=== PATIENT | male | born 1960 | race Caucasian/White ===

== ENCOUNTER 2017-03-15 20:58 | Inpatient (IN) | payer SELFPAY ==
[~2017-03-15] VITALS: Ht 172.7 cm; Wt 63.4 kg
[~2017-03-15 20:58] MED LIST: CILO0.3S EACH EYE; METO25 PO; TRAZ100T4 PO
[2017-03-15 21:04] VITALS: BP 124/87; PULSE 101; RESP 18; TEMP 98; O2SAT 98
--- NOTE | 2017-03-15 22:30 | PD ---
HPI Chief Complaint: GI Complaint Time Seen by Provider: 22:20 Travel History International Travel<30 days: No Contact w/Intl Traveler<30days: No Traveled to known affect area: No History of Present Illness HPI The patient is a 56-year-old homeless alcoholic who states he has been vomiting and has the shakes for 3 days. He discontinued alcohol 3 days ago. [place] [facility], [facility] Past Medical History Arthritis: No Asthma: Yes Blood Disorders: No Anxiety: Yes Depression: Yes Heart Rhythm Problems: No Cancer: No Cardiovascular Problems: Yes High Cholesterol: No Chemotherapy: No Chest Pain: Yes Congestive Heart Failure: No COPD: Yes Cerebrovascular Accident: No Diabetes: No Diminished Hearing: No Endocrine: No Gastrointestinal Disorders: Yes GERD: Yes Genitourinary: No Headaches: No Hepatitis: No Hiatal Hernia: No Hypertension: Yes Immune Disorder: No Musculoskeletal: Yes Neurologic: Yes Psychiatric: Yes Reproductive: No Respiratory: Yes Immunizations Current: No Migraines: No Myocardial Infarction: No Pancreatitis: Yes Radiation Therapy: No Seizures: No Sleep Apnea: No Thyroid Disease: No Ulcer: No Tetanus Vaccination: > 5 Years Influenza Vaccination: No ?: Not Past Surgical History Abdominal Surgery: No Appendectomy: No Cardiac Surgery: No Cholecystectomy: No Ear Surgery: No Endocrine Surgery: No Eye Surgery: Yes (rt eye laser [id number]) Genitourinary Surgery: No Gynecologic Surgery: No Oral Surgery: Yes (top implanted front dentures) Thoracic Surgery: No Other Surgery: Yes Social History Alcohol Use: Yes Tobacco Use: Yes (1 PPD) Substance Use: No Allergies-Medications (Allergen,Severity, Reaction): Coded Allergies: No Known Allergies (Verified , 03/15/17) Reported Meds & Prescriptions Reported Meds & Active Scripts Active Review of Systems Except as stated in HPI: all other systems reviewed are Neg Physical Exam Narrative GENERAL: The patient is alert, oriented 3 with a minimal tremor and slight dehydration and minimal apparent distress with his midline epigastric discomfort. His vital signs show heart rate of 101 but are otherwise normal. SKIN: Focused skin assessment warm/dry. HEAD: Atraumatic. Normocephalic. EYES: Pupils equal and round. No scleral icterus. No injection or drainage. ENT: No nasal bleeding or discharge. Mucous membranes pink and moist. NECK: Trachea midline. No JVD. CARDIOVASCULAR: Regular rate and rhythm. No murmur appreciated. RESPIRATORY: No accessory muscle use. Clear to auscultation. Breath sounds equal bilaterally. GASTROINTESTINAL: Abdomen soft, with tenderness to direct palpation in the midline epigastrium, no guarding or rebound is present. The abdomen is nondistended. Hepatic and splenic margins not palpable. MUSCULOSKELETAL: No obvious deformities. No clubbing. No cyanosis. No edema. NEUROLOGICAL: Awake and alert. No obvious cranial nerve deficits. Motor grossly within normal limits. Normal speech. PSYCHIATRIC: Appropriate mood and affect; insight and judgment normal. Data Data Last Documented VS Vital Signs Date Time Temp Pulse Resp B/P (MAP) Pulse Ox O2 Delivery O2 Flow Rate FiO2 03/15/17 22:37 98 Room Air 03/15/17 21:04 98.0 101 18 124/87 (99) Orders Orders Complete Blood Count With Diff (03/15/17 22:31) Comprehensive Metabolic Panel (03/15/17 22:31) Lipase (03/15/17 22:31) Iv Access Insert/Monitor (03/15/17 22:31) Ecg Monitoring (03/15/17 22:31) Oximetry (03/15/17 22:31) Sodium Chloride 0.9% Flush (Ns Flush) (03/15/17 22:45) Ondansetron Inj (Zofran Inj) (03/15/17 22:45) Sodium Chlor 0.9% 1000 Ml Inj (Ns 1000 M (03/15/17 22:45) Potassium Chloride (Kcl) (03/15/17 23:15) Thiamine Inj (Thiamine Inj) (03/15/17 23:30) Labs Laboratory Tests Test 03/15/17 22:34 White Blood Count 8.9 TH/MM3 Red Blood Count 5.04 MIL/MM3 Hemoglobin 13.2 GM/DL Hematocrit 39.7 % Mean Corpuscular Volume 78.8 FL Mean Corpuscular Hemoglobin 26.2 PG Mean Corpuscular Hemoglobin Concent 33.3 % Red Cell Distribution Width 21.0 % Platelet Count 79 TH/MM3 Mean Platelet Volume 9.5 FL Neutrophils (%) (Auto) 81.9 % Lymphocytes (%) (Auto) 8.9 % Monocytes (%) (Auto) 8.5 % Eosinophils (%) (Auto) 0.4 % Basophils (%) (Auto) 0.3 % Neutrophils # (Auto) 7.3 TH/MM3 Lymphocytes # (Auto) 0.8 TH/MM3 Monocytes # (Auto) 0.8 TH/MM3 Eosinophils # (Auto) 0.0 TH/MM3 Basophils # (Auto) 0.0 TH/MM3 CBC Comment DIFF FINAL Differential Comment Blood Urea Nitrogen 20 MG/DL Creatinine 1.30 MG/DL Random Glucose 106 MG/DL Total Protein 8.7 GM/DL Albumin 4.3 GM/DL Calcium Level 9.7 MG/DL Alkaline Phosphatase 82 U/L Aspartate Amino Transf (AST/SGOT) 115 U/L Alanine Aminotransferase (ALT/SGPT) 62 U/L Total Bilirubin 1.9 MG/DL Sodium Level 130 MEQ/L Potassium Level 2.5 MEQ/L Chloride Level 84 MEQ/L Carbon Dioxide Level 32.8 MEQ/L Anion Gap 13 MEQ/L Estimat Glomerular Filtration Rate 57 ML/MIN Lipase 582 U/L [facility] Medical Decision Making Medical Screen Exam Complete: Yes Emergency Medical Condition: Yes Medical Record Reviewed: Yes Interpretation(s) The CBC is normal except for an MCV of 79 and MCH of 26 and a platelet count of 79,000. The complete metabolic profile shows a BUN of 20, GFR 57, total protein of 8.7, AST of 115 and total bilirubin of 1.9 with a sodium of 1:30 and potassium 2.5 and bicarbonate of 32.8. The lipase is elevated at 582. Differential Diagnosis Alcohol gastritis, pancreatitis, dehydration, electrolyte disorder, anemia, renal insufficiency, alcohol hepatitis-unlikely Narrative Course The patient likely has alcoholic pancreatitis. He is dehydrated and has not been able to give us a urine yet. The elevated BUN suggest dehydration. He also has an electrolyte disorder with a sodium of 1:30 and potassium of 2.5. Plan: The patient will be admitted to Dr. Gigi otto of the [facility] service. The patient will be admitted for alcohol withdrawal, hypokalemia and alcoholic pancreatitis Diagnosis Primary Impression: Alcohol withdrawal Additional Impressions: Hypovolemia associated with vomiting Alcoholic pancreatitis Dehydration, moderate Admitting Information Admitting Physician Requests: Admit Alvarez Reed MD Mar 15, 2017 22:30
[2017-03-15] MEDS: SODIUM CHLOR 0.9% 1000 ML INJ 1,000 ML IV SCH ×2 (22:36→22:37)
[2017-03-15 22:37] VITALS: O2SAT 98
[2017-03-15] MEDS ORDERED: ONDANSETRON HCL 4 MG/2 ML VIAL IV ONE (22:45)
[2017-03-15] MEDS ORDERED: SODIUM CHLORIDE 0.9% FLUSH 10 ML FLUSH IV FLUSH PRN ×2 (22:45→23:30)
[2017-03-15 22:46] LABS: AUTOMATED NEUTROPHIL # 7.3 TH/MM3 (1.8-7.7); BASOPHIL % 0.3 % (0.0-2.0); EOSINOPHIL % 0.4 % (0.0-4.0); HEMATOCRIT 39.7 % (39.0-51.0); LYMPH % 8.9 % (9.0-44.0); LYMPHOCYTE # 0.8 TH/MM3 (1.0-4.8); MEAN CELL VOLUME 78.8 FL (80.0-100.0); MEAN CORPUSCULAR HEMOGLOBIN 26.2 PG (27.0-34.0); MEAN CORPUSCULAR HGB CONC 33.3 % (32.0-36.0); MONO % 8.5 % (0.0-8.0); NEUT % 81.9 % (16.0-70.0); PLATELET COUNT 79 TH/MM3 (150-450); RED BLOOD COUNT 5.04 MIL/MM3 (4.50-5.90); WHITE BLOOD COUNT 8.9 TH/MM3 (4.0-11.0)
[2017-03-15 22:54] LABS: HEMO FLAGS DIFF FINAL
[2017-03-15 23:13] LABS: ALKALINE PHOSPHATASE 82 U/L (45-117); ALT (GPT) 62 U/L (12-78); ANION GAP 13 MEQ/L (5-15); AST (GOT) 115 U/L (15-37); BICARBONATE 32.8 MEQ/L (21.0-32.0); BLOOD UREA NITROGEN 20 MG/DL (7-18); CHLORIDE 84 MEQ/L (98-107); GLOMERULAR FILTRATION RATE 57 ML/MIN (>89); SODIUM (NA) 130 MEQ/L (136-145); TOTAL BILIRUBIN ADULT 1.9 MG/DL (0.2-1.0)
[2017-03-15 23:14] LABS: POTASSIUM 2.5 MEQ/L (3.5-5.1)
[2017-03-15] MEDS ORDERED: POTASSIUM CHLORIDE 20 MEQ CONTROLLED RELEASE TAB PO ONE ×2 (23:15→23:30)
[2017-03-15] MEDS ORDERED: SODIUM CHLOR 0.9% 1000 ML INJ 1,000 ML IV SCH (23:24)
[2017-03-15] MEDS ORDERED: MAGNESIUM HYDROXIDE SUSP 30 ML CUP PO PRN (23:30)
[2017-03-15] MEDS ORDERED: SENNOSIDES 8.6 MG TAB PO PRN (23:30)
[2017-03-15] MEDS ORDERED: LORazepam 2 MG TAB PO PRN (23:30)
[2017-03-15] MEDS ORDERED: ONDANSETRON HCL 4 MG/2 ML VIAL IVP PRN (23:30)
[2017-03-15] MEDS ORDERED: MORPHINE SULFATE 4 MG/ML INJ IV PUSH PRN (23:30)
[2017-03-15] MEDS ORDERED: LACTULOSE SYRUP 20 GM/30 ML CUP PO PRN (23:30)
[2017-03-15] MEDS ORDERED: BISACODYL 10 MG SUPP RECTAL PRN (23:30)
[2017-03-15] MEDS ORDERED: LORazepam 2 MG/ML VIAL IV PUSH PRN ×4 (23:30)
[2017-03-15] MEDS ORDERED: HALOPERIDOL LACTATE 5 MG/ML AMP IM PRN (23:30)
[2017-03-15] MEDS ORDERED: LORazepam 1 MG TAB PO PRN (23:30)
[2017-03-15] MEDS ORDERED: THIAMINE INJ 100 MG in SODIUM CHLORIDE 0.9% INJ 100 ML IV ONE (23:30)
[2017-03-15] MEDS ORDERED: FLUMAZENIL 0.5 MG/5 ML VIAL IV PUSH PRN (23:30)
[2017-03-15] MEDS ORDERED: ACETAMINOPHEN 325 MG TAB PO PRN (23:30)
[2017-03-15 23:42] VITALS: BP 133/83; PULSE 86; RESP 16; O2SAT 97
[2017-03-16 01:36] VITALS: BP 114/93; PULSE 85; RESP 16; TEMP 98.6; O2SAT 95
[2017-03-16 04:51] VITALS: BP 118/81; PULSE 74; RESP 16; TEMP 98.8; O2SAT 95
[2017-03-16 07:30] LABS: AUTOMATED NEUTROPHIL # 4.7 TH/MM3 (1.8-7.7); BASOPHIL % 0.5 % (0.0-2.0); EOSINOPHIL # 0.1 TH/MM3 (0-0.4); EOSINOPHIL % 1.4 % (0.0-4.0); HEMATOCRIT 36.3 % (39.0-51.0); LYMPH % 16.8 % (9.0-44.0); LYMPHOCYTE # 1.1 TH/MM3 (1.0-4.8); MEAN CELL VOLUME 81.2 FL (80.0-100.0); MEAN CORPUSCULAR HEMOGLOBIN 26.3 PG (27.0-34.0); MEAN CORPUSCULAR HGB CONC 32.3 % (32.0-36.0); MONO % 9.9 % (0.0-8.0); NEUT % 71.4 % (16.0-70.0); PLATELET COUNT 68 TH/MM3 (150-450); RED BLOOD COUNT 4.47 MIL/MM3 (4.50-5.90); RED CELL DISTRIBUTION WIDTH 21.5 % (11.6-17.2); WHITE BLOOD COUNT 6.5 TH/MM3 (4.0-11.0)
[2017-03-16 07:35] LABS: HEMO FLAGS DIFF FINAL
[2017-03-16 07:51] LABS: ALKALINE PHOSPHATASE 64 U/L (45-117); ALT (GPT) 48 U/L (12-78); ANION GAP 10 MEQ/L (5-15); AST (GOT) 91 U/L (15-37); BLOOD UREA NITROGEN 17 MG/DL (7-18); CHLORIDE 92 MEQ/L (98-107); GLOMERULAR FILTRATION RATE 83 ML/MIN (>89); SODIUM (NA) 132 MEQ/L (136-145); TOTAL BILIRUBIN ADULT 1.7 MG/DL (0.2-1.0)
[2017-03-16 07:55] LABS: POTASSIUM 2.8 MEQ/L (3.5-5.1)
[2017-03-16] MEDS: DOCUSATE SODIUM 50 MG/SENNA 8.6 MG TAB PO SCH ×2 (09:00→21:00)
[2017-03-16] MEDS: SODIUM CHLORIDE 0.9% FLUSH 10 ML FLUSH IV FLUSH SCH ×2 (09:00→21:45)
[2017-03-16] MEDS ORDERED: INFLUENZA VIRUS VACCINE (QUADRIVALENT) 0.5 ML SYR IM ONE (09:00)
[2017-03-16] MEDS ORDERED: POTASSIUM CHLORIDE 10 MEQ CONTROLLED RELEASE TAB PO ONE (09:00)
[2017-03-16] MEDS: MULTIVITAMINS/MINERALS THERAPEUTIC TAB PO SCH (09:39)
[2017-03-16] MEDS: THIAMINE HCL 100 MG TAB PO SCH (09:40)
[2017-03-16] MEDS: FOLIC ACID 1 MG TAB PO SCH (09:40)
[2017-03-16] MEDS: NS + KCL 20 MEQ INJ 1,000 ML IV SCH ×2 (09:41→21:44)
[2017-03-16] MEDS ORDERED: MAGNESIUM OXIDE 400 MG TAB PO ONE (10:00)
[2017-03-16 12:00] VITALS: BP 128/79; PULSE 69; RESP 17; TEMP 98.1; O2SAT 96
[2017-03-16 16:00] VITALS: BP 122/81; PULSE 72; RESP 18; TEMP 97.9; O2SAT 95
--- NOTE | 2017-03-16 17:38 | HHI.HP ---
[facility] No Primary Care Physician Admission Diagnosis alcohol withdrawal, hypokalemia, alcoholic pancreatitis, dehydration Diagnoses: (1) Nausea & vomiting Diagnosis: Principal (2) Hypokalemia Diagnosis: Principal (3) Alcoholic pancreatitis Diagnosis: Principal (4) Diarrhea in adult patient Diagnosis: Principal Chief Complaint: Nausea, vomiting Travel History International Travel<30 Days: No Contact w/Intl Traveler <30 Da: No Traveled to Known Affected Are: No History of Present Illness Written by Jorden Reed, acting as scribe for Dr. Ley on 03/16/17 at 17:31. 56 year-old male with known history of chronic alcoholism, history of recurrent pancreatitis, chronic obstructive pulmonary disease, gastroesophageal reflux who presented to the hospital because of 3 day history of intractable nausea vomiting. Patient states he has normal state of health until 3 days ago when he started having intractable nausea vomiting, diarrhea. Patient does drink a pint of vodka daily, he has not been a change to any alcohol since his nausea vomiting started so he was worried about detoxing so he came to the hospital for evaluation. Patient had workup done in found to have significant electrolyte abnormalities with hypokalemia, elevated lipase level was could be indicative of pancreatitis. Because of those reasons the patient was recommended admission to the hospital for further evaluation and management. Since then the patient was eating breakfast 1 evaluated this morning without any recurrent nausea vomiting. Patient states that he did have at least 15 episodes of diarrhea last night. He denies any sick exposures. Fever, chills. He has not had any recurrent nausea or vomiting. Patient does have some abdominal pain located over on the left lateral side. No epigastric tenderness or pain Review of Systems Gastrointestinal: COMPLAINS OF: Abdominal pain, Diarrhea, Nausea, Vomiting Except as stated in HPI: all other systems reviewed are Neg Past Family Social History Past Medical History Chronic alcoholism Anxiety Chronic affective pulmonary disease Gastroesophageal reflux History of pancreatitis History of hypertension Past Surgical History Left wrist surgery Right eye laser surgery Oral surgery for implanted dentures Allergies: Coded Allergies: No Known Allergies (Verified , 03/15/17) Family History Reviewed is significant for mother at 76 from gallbladder issues, father at age 59 from myocardial infarction and heart disease Social History Patient smokes 1 pack a cigarettes a day since he was 15 years old. He drinks 1 pint of vodka daily. Denies any illicit drugs Physical Exam Vital Signs Vital Signs Date Time Temp Pulse Resp B/P (MAP) Pulse Ox O2 Delivery O2 Flow Rate FiO2 03/16/17 16:00 97.9 72 18 122/81 (95) 95 03/16/17 12:00 98.1 69 17 128/79 (95) 96 03/16/17 04:51 98.8 74 16 118/81 (93) 95 03/16/17 01:36 98.6 85 16 114/93 (100) 95 03/16/17 00:57 76 16 98 03/15/17 23:42 86 16 133/83 (100) 97 Room Air 03/15/17 22:37 98 Room Air 03/15/17 21:04 98.0 101 18 124/87 (99) 98 Physical Exam GENERAL: Well-developed, well-nourished, in no acute distress. alert and orientated HEENT: Head is normocephalic without any lesions or masses noted. Facial features are symmetric. Eyes: Pupils equal round reactive to light. Extraocular muscles are intact. Conjunctivae were clear. Oropharyngeal: Pharynx without any erythema edema. Tongue is midline without deviation. Buccal mucosa is moist without any masses or lesions NECK: Supple without any masses. Trachea midline no deviation. No JVD, no bruits are appreciated CARDIAC: Regular rhythm, regular rate. S1/S2 are heard. No murmurs gallops or rubs. LUNGS: Clear to auscultation bilaterally. No wheeze, rhonchi or rales. No use of accessory muscles on inspiration or expiration. ABDOMEN: Soft, nontender. Left sided abdominal pain, no epigastric pain. Bowel sounds heard in all 4 quadrants. No organomegaly or masses. Negative rebound, negative guarding EXTREMITIES: No edema, pulses are equal bilaterally. No cyanosis or clubbing NEUROLOGY: Mood and affect appear appropriate. Cranial nerves II through XII grossly intact. Muscle strength 5/5 in upper and lower extremities bilaterally. Deep tendon reflexes are 2+ in upper and lower extremities bilaterally. Laboratory Laboratory Tests Test 03/15/17 22:34 03/16/17 06:28 White Blood Count 8.9 6.5 Red Blood Count 5.04 4.47 Hemoglobin 13.2 11.8 Hematocrit 39.7 36.3 Mean Corpuscular Volume 78.8 81.2 Mean Corpuscular Hemoglobin 26.2 26.3 Mean Corpuscular Hemoglobin Concent 33.3 32.3 Red Cell Distribution Width 21.0 21.5 Platelet Count 79 68 Mean Platelet Volume 9.5 9.0 Neutrophils (%) (Auto) 81.9 71.4 Lymphocytes (%) (Auto) 8.9 16.8 Monocytes (%) (Auto) 8.5 9.9 Eosinophils (%) (Auto) 0.4 1.4 Basophils (%) (Auto) 0.3 0.5 Neutrophils # (Auto) 7.3 4.7 Lymphocytes # (Auto) 0.8 1.1 Monocytes # (Auto) 0.8 0.6 Eosinophils # (Auto) 0.0 0.1 Basophils # (Auto) 0.0 0.0 CBC Comment DIFF FINAL DIFF FINAL Differential Comment Blood Urea Nitrogen 20 17 Creatinine 1.30 0.94 Random Glucose 106 87 Total Protein 8.7 6.8 Albumin 4.3 3.5 Calcium Level 9.7 8.0 Alkaline Phosphatase 82 64 Aspartate Amino Transf (AST/SGOT) 115 91 Alanine Aminotransferase (ALT/SGPT) 62 48 Total Bilirubin 1.9 1.7 Sodium Level 130 132 Potassium Level 2.5 2.8 Chloride Level 84 92 Carbon Dioxide Level 32.8 30.0 Anion Gap 13 10 Estimat Glomerular Filtration Rate 57 83 Lipase 582 721 Magnesium Level 1.6 Result Diagram: 03/16/1762703/16/17627 Caprini VTE Risk Assessment Caprini VTE Risk Assessment: Mod/High Risk (score >= 2) Caprini Risk Assessment Model Point Value = 1 Point Value = 2 Point Value = 3 Point Value = 5 Age 41-60 Minor surgery BMI > 25 kg/m2 Swollen legs Varicose veins or History of unexplained or recurrent spontaneous Oral contraceptives or hormone replacement Sepsis (< 1 month) Serious lung disease, including pneumonia (< 1 month) Abnormal pulmonary function Acute myocardial infarction Congestive heart failure (< 1 month) History of inflammatory bowel disease Medical patient at bed rest Age 61-74 Arthroscopic surgery Major open surgery (> 45 min) Laparoscopic surgery (> 45 min) Malignancy Confined to bed (> 72 hours) Immobilizing plaster cast Central venous access Age >= 75 History of VTE Family history of VTE Factor V Leiden Prothrombin [id number] Lupus anticoagulant Anticardiolipin antibodies Elevated serum homocysteine Heparin-induced thrombocytopenia Other congenital or acquired thrombophilia Stroke (< 1 month) Elective arthroplasty Hip, pelvis, or leg fracture Acute spinal cord injury (< 1 month) Prophylaxis Regimen Total Risk Factor Score Risk Level Prophylaxis Regimen 0-1 Low Early ambulation 2 Moderate Order ONE of the following: *Sequential Compression Device (SCD) *Heparin 5000 units SQ BID 3-4 Higher Order ONE of the following medications: *Heparin 5000 units SQ TID *Enoxaparin/Lovenox 40 mg SQ daily (WT < 150 kg, CrCl > 30 mL/min) *Enoxaparin/Lovenox 30 mg SQ daily (WT < 150 kg, CrCl > 10-29 mL/min) *Enoxaparin/Lovenox 30 mg SQ BID (WT < 150 kg, CrCl > 30 mL/min) AND/OR *Sequential Compression Device (SCD) 5 or more Highest Order ONE of the following medications: *Heparin 5000 units SQ TID (Preferred with Epidurals) *Enoxaparin/Lovenox 40 mg SQ daily (WT < 150 kg, CrCl > 30 mL/min) *Enoxaparin/Lovenox 30 mg SQ daily (WT < 150 kg, CrCl > 10-29 mL/min) *Enoxaparin/Lovenox 30 mg SQ BID (WT < 150 kg, CrCl > 30 mL/min) AND *Sequential Compression Device (SCD) Assessment and Plan Assessment and Plan Intractable nausea, vomiting, diarrhea with elevated lipase Patient does have history of alcoholism and history of pancreatitis Continue IV fluids Continue clear liquids diet Continue trend lipase level Check stool for enteric pathogen, WBC, C. difficile Zofran as needed Hypokalemia Likely secondary to GI losses from nausea, vomiting, diarrhea Continue monitoring place as needed Chronic alcohol use, Patient denies any significant withdrawal symptoms in the past. Denies any seizures [facility] protocol has been started DVT prevention Sequential compression devices This note was transcribed by trina Reed. I, Dr. Dedrick Riggs personally performed the history, physical exam, and medical decision making; and confirmed the accuracy of the information in the transcribed note. Authenticated by Dr. Dedrick Riggs on 03/16/17 at 17:41.. Physician Certification 2 Midnight Certification Type: Admission for Inpatient Services Order for Inpatient Services The services are ordered in accordance with Medicare regulations or non- Medicare payer requirements, as applicable. In the case of services not specified as inpatient-only, they are appropriately provided as inpatient services in accordance with the 2-midnight benchmark. Estimated LOS (days): 2 days is the estimated time the patient will need to remain in the hospital, assuming treatment plan goals are met and no additional complications. Post-Hospital Plan: Not yet determined Jorden Reed Mar 16, 2017 17:38 Dedrick Betancur MD Mar 17, 2017 21:32
[2017-03-16 20:00] VITALS: BP 127/90; PULSE 65; RESP 16; TEMP 98.3; O2SAT 95
[2017-03-17] VITALS: BP 121/77; PULSE 65; RESP 20; TEMP 98.4; O2SAT 95
[2017-03-17 04:00] VITALS: BP 130/97; PULSE 74; RESP 20; TEMP 98.4; O2SAT 95
[2017-03-17] MEDS: NS + KCL 20 MEQ INJ 1,000 ML IV SCH ×2 (06:06→23:49)
[2017-03-17 07:10] LABS: AUTOMATED NEUTROPHIL # 3.9 TH/MM3 (1.8-7.7); BASOPHIL % 0.5 % (0.0-2.0); EOSINOPHIL # 0.1 TH/MM3 (0-0.4); EOSINOPHIL % 2.7 % (0.0-4.0); HEMATOCRIT 32.3 % (39.0-51.0); LYMPH % 14.4 % (9.0-44.0); LYMPHOCYTE # 0.8 TH/MM3 (1.0-4.8); MEAN CELL VOLUME 81.5 FL (80.0-100.0); MEAN CORPUSCULAR HEMOGLOBIN 26.6 PG (27.0-34.0); MEAN CORPUSCULAR HGB CONC 32.6 % (32.0-36.0); MONO % 10.1 % (0.0-8.0); NEUT % 72.3 % (16.0-70.0); PLATELET COUNT 77 TH/MM3 (150-450); RED BLOOD COUNT 3.97 MIL/MM3 (4.50-5.90); RED CELL DISTRIBUTION WIDTH 21.6 % (11.6-17.2); WHITE BLOOD COUNT 5.4 TH/MM3 (4.0-11.0)
[2017-03-17 07:14] LABS: HEMO FLAGS AUTO DIFF
[2017-03-17 07:36] LABS: POTASSIUM 2.7 MEQ/L (3.5-5.1)
[2017-03-17 07:41] LABS: C. DIFF EPI 027 PRESUMPTIVE NEGATIVE (NEGATIVE)
[2017-03-17 08:00] VITALS: BP 137/86; PULSE 66; RESP 18; TEMP 97.1; O2SAT 96
[2017-03-17] MEDS ORDERED: POTASSIUM CHLORIDE 20 MEQ CONTROLLED RELEASE TAB PO ONE (08:00)
[2017-03-17 08:22] LABS: PLATELET ESTIMATE SMEAR LOW (NORMAL); PLATELET MORPHOLOGY NORMAL (NORMAL); SCAN/DIFF AUTO DIFF CONFIRMED
[2017-03-17] MEDS: FOLIC ACID 1 MG TAB PO SCH (08:52)
[2017-03-17] MEDS: SODIUM CHLORIDE 0.9% FLUSH 10 ML FLUSH IV FLUSH SCH ×2 (08:53→20:39)
[2017-03-17] MEDS: THIAMINE HCL 100 MG TAB PO SCH (08:53)
[2017-03-17] MEDS: DOCUSATE SODIUM 50 MG/SENNA 8.6 MG TAB PO SCH ×2 (08:53→20:36)
[2017-03-17] MEDS: POTASSIUM CHLOR 20 MEQ PREMIX 100 ML IV SCH ×2 (08:54→11:58)
[2017-03-17] MEDS: MULTIVITAMINS/MINERALS THERAPEUTIC TAB PO SCH (09:03)
[2017-03-17 12:00] VITALS: BP 136/80; PULSE 72; RESP 18; TEMP 97.8; O2SAT 96
[2017-03-17 16:38] LABS: POTASSIUM 3.3 MEQ/L (3.5-5.1)
[2017-03-17 16:42] LABS: MAGNESIUM 1.7 MG/DL (1.5-2.5)
[2017-03-17] MEDS: metroNIDAZOLE 500 MG TAB PO SCH ×2 (17:44→20:38)
[2017-03-17 18:30] VITALS: BP 136/80; PULSE 73; RESP 18; TEMP 98; O2SAT 96
[2017-03-17 20:00] VITALS: BP 139/91; PULSE 61; PULSE 71; RESP 20; TEMP 98.3; O2SAT 99
--- NOTE | 2017-03-17 21:43 | HHI.PR ---
Subjective Remarks Deferred entry patient seen earlier at 11:30 am Patient states he feels better Had 1 episode of diarrhea earlier today Objective Vitals Vital Signs Date Time Temp Pulse Resp B/P (MAP) Pulse Ox O2 Delivery O2 Flow Rate FiO2 03/17/17 18:30 98.0 73 18 136/80 (98) 96 03/17/17 12:00 97.8 72 18 136/80 (98) 96 03/17/17 08:00 97.1 66 18 137/86 (103) 96 03/17/17 04:00 98.4 74 20 130/97 (108) 95 03/17/17 00:00 98.4 65 20 121/77 (92) 95 I/O 03/16/17 03/16/17 03/16/17 03/17/17 03/17/17 03/17/17 07:00 15:00 23:00 07:00 15:00 23:00 Intake Total 2101 ml 1000 ml 1804 ml 1048 ml Balance 2101 ml 1000 ml 1804 ml 1048 ml Intake Oral 240 ml IV Total 2101 ml 1000 ml 1804 ml 808 ml # Voids 2 3 # Bowel Movements 3 Result Diagram: 03/17/17 0625 03/17/17 1607 Objective Remarks GENERAL: Well-developed, well-nourished, in no acute distress. alert and orientated HEENT: Head is normocephalic without any lesions or masses noted. Facial features are symmetric. Eyes: Pupils equal round reactive to light. Extraocular muscles are intact. Conjunctivae were clear. Oropharyngeal: Pharynx without any erythema edema. Tongue is midline without deviation. Buccal mucosa is moist without any masses or lesions NECK: Supple without any masses. Trachea midline no deviation. No JVD, no bruits are appreciated CARDIAC: Regular rhythm, regular rate. S1/S2 are heard. No murmurs gallops or rubs. LUNGS: Clear to auscultation bilaterally. No wheeze, rhonchi or rales. No use of accessory muscles on inspiration or expiration. ABDOMEN: Soft, nontender. Left sided abdominal pain, no epigastric pain. Bowel sounds heard in all 4 quadrants. No organomegaly or masses. Negative rebound, negative guarding EXTREMITIES: No edema, pulses are equal bilaterally. No cyanosis or clubbing NEUROLOGY: Mood and affect appear appropriate. Cranial nerves II through XII grossly intact. Muscle strength 5/5 in upper and lower extremities bilaterally. Deep tendon reflexes are 2+ in upper and lower extremities bilaterally. Medications and IVs Current Medications Medications (Trade) Dose Ordered Sig/Tifafnie Route Start Time Stop Time Status Last Admin (Folate) 1 mg DAILY PO 03/16/17 09:00 03/21/17 08:59 03/17/17 08:52 (Vitamin B1) 100 mg DAILY PO 03/16/17 09:00 03/17/17 08:53 (Theragran M Tab) 1 tab DAILY PO 03/16/17 09:00 03/21/17 08:59 03/17/17 09:03 (Romazicon Inj) 0.2 mg Q1M PRN IV PUSH 03/15/17 23:30 (Ativan) 1 mg Q4H PRN PO 03/15/17 23:30 (Ativan Inj) 1 mg Q4H PRN IV PUSH 03/15/17 23:30 (Ativan) 2 mg Q2H PRN PO 03/15/17 23:30 (Ativan Inj) 2 mg Q2H PRN IV PUSH 03/15/17 23:30 (Ativan Inj) 2 mg Q1H PRN IV PUSH 03/15/17 23:30 (Ativan Inj) 2 mg Q15M PRN IV PUSH 03/15/17 23:30 (Haldol Inj) 2 mg Q15M PRN IM 03/15/17 23:30 (NS Flush) 2 ml UNSCH PRN IV FLUSH 03/15/17 23:30 (NS Flush) 2 ml BID IV FLUSH 03/16/17 09:00 03/17/17 08:53 (Zofran Inj) 4 mg Q6H PRN IVP 03/15/17 23:30 03/16/17 12:22 (Tylenol) 650 mg Q6H PRN PO 03/15/17 23:30 (Morphine Inj) 2 mg Q3H PRN IV PUSH 03/15/17 23:30 (Roxicodone) 5 mg Q4H PRN PO 03/15/17 23:30 (Tiny-Colace) 1 tab BID PO 03/16/17 09:00 03/17/17 08:53 (Milk Of Magnesia Liq) 30 ml Q12H PRN PO 03/15/17 23:30 (Senokot) 17.2 mg Q12H PRN PO 03/15/17 23:30 (Dulcolax Supp) 10 mg DAILY PRN RECTAL 03/15/17 23:30 (Lactulose Liq) 30 ml DAILY PRN PO 03/15/17 23:30 Potassium Chloride/Sodium Chloride 1,000 ml @ 100 mls/hr Q10H IV 03/16/17 09:00 03/17/17 06:06 (Flagyl) 500 mg Q8HR PO 03/17/17 16:00 03/17/17 20:38 A/P Problem List: (1) Nausea & vomiting ICD Code: R11.2 - Nausea with vomiting, unspecified (2) Hypokalemia ICD Code: E87.6 - Hypokalemia (3) Alcoholic pancreatitis ICD Code: K85.20 - Alcohol induced acute pancreatitis without necrosis or infection Status: Acute (4) Diarrhea in adult patient ICD Code: R19.7 - Diarrhea, unspecified Assessment and Plan C diff positive start the patient on Flagyl po hypokalemia better - continue monitor bmp and replace K as needed Will replace K orally continue zofran for nausea lipase trending down Continue CIWA protocol for etoh abuse - no evidence of withdrawal continue thiamine and folic acid Dedrick Betancur MD Mar 17, 2017 21:43
[2017-03-18] VITALS (7 sets, daily range): BP systolic 128–137; BP diastolic 78–100; PULSE 57–73; RESP 16–20; TEMP 97–98.4; O2SAT 92–96
[2017-03-18] MEDS: metroNIDAZOLE 500 MG TAB PO SCH ×3 (05:54→21:28)
[2017-03-18] MEDS: FOLIC ACID 1 MG TAB PO SCH (09:55)
[2017-03-18] MEDS: THIAMINE HCL 100 MG TAB PO SCH (09:55)
[2017-03-18] MEDS: MULTIVITAMINS/MINERALS THERAPEUTIC TAB PO SCH (09:55)
[2017-03-18] MEDS: DOCUSATE SODIUM 50 MG/SENNA 8.6 MG TAB PO SCH ×2 (09:55→20:04)
[2017-03-18] MEDS: SODIUM CHLORIDE 0.9% FLUSH 10 ML FLUSH IV FLUSH SCH ×2 (09:56→20:04)
[2017-03-18] MEDS: NS + KCL 20 MEQ INJ 1,000 ML IV SCH ×3 (10:03→20:04)
[2017-03-18 12:00] LABS: EOSINOPHIL # 0.3 TH/MM3 (0-0.4); EOSINOPHIL % 5.4 % (0.0-4.0); HEMATOCRIT 35.8 % (39.0-51.0); HEMO FLAGS DIFF FINAL; LYMPHOCYTE # 0.8 TH/MM3 (1.0-4.8); MEAN CELL VOLUME 80.9 FL (80.0-100.0); MEAN CORPUSCULAR HEMOGLOBIN 25.8 PG (27.0-34.0); MEAN CORPUSCULAR HGB CONC 31.9 % (32.0-36.0); NEUT % 60.6 % (16.0-70.0); PLATELET COUNT 102 TH/MM3 (150-450); RED BLOOD COUNT 4.42 MIL/MM3 (4.50-5.90); WHITE BLOOD COUNT 4.9 TH/MM3 (4.0-11.0)
[2017-03-18 12:12] LABS: CHLORIDE 103 MEQ/L (98-107); SODIUM (NA) 137 MEQ/L (136-145)
[2017-03-18 12:19] LABS: ANION GAP 9 MEQ/L (5-15); BICARBONATE 24.9 MEQ/L (21.0-32.0); BLOOD UREA NITROGEN 4 MG/DL (7-18)
[2017-03-18 12:21] LABS: ALT (GPT) 53 U/L (12-78); AST (GOT) 90 U/L (15-37)
[2017-03-18 12:22] LABS: GLOMERULAR FILTRATION RATE 118 ML/MIN (>89)
[2017-03-18 12:23] LABS: TOTAL BILIRUBIN ADULT 0.9 MG/DL (0.2-1.0)
[2017-03-18 12:24] LABS: ALKALINE PHOSPHATASE 71 U/L (45-117)
[2017-03-18] MEDS ORDERED: POTASSIUM CHLORIDE 10 MEQ CONTROLLED RELEASE TAB PO ONE (15:15)
[2017-03-18] MEDS ORDERED: POTASSIUM CHLOR 20 MEQ PREMIX 100 ML IV ONE (15:15)
--- NOTE | 2017-03-18 15:20 | HHI.PR ---
Subjective Remarks Still complaining of diarrhea, however states he has improved. Denies nausea or vomiting. Patient denies fevers or chills Objective Vitals Vital Signs Date Time Temp Pulse Resp B/P (MAP) Pulse Ox O2 Delivery O2 Flow Rate FiO2 03/18/17 12:00 97.8 70 18 128/78 (95) 95 03/18/17 08:00 98.4 62 17 134/87 (103) 96 03/18/17 04:00 98.2 60 16 137/87 (104) 96 03/18/17 00:00 97.0 73 18 133/100 (111) 94 03/17/17 20:00 61 03/17/17 20:00 98.3 71 20 139/91 (107) 99 03/17/17 18:30 98.0 73 18 136/80 (98) 96 I/O 03/17/17 03/17/17 03/17/17 03/18/17 03/18/17 03/18/17 07:00 15:00 23:00 07:00 15:00 23:00 Intake Total 1048 ml 1700 ml Balance 1048 ml 1700 ml Intake Oral 240 ml 200 ml IV Total 808 ml 1500 ml # Voids 3 2 # Bowel Movements 3 2 Result Diagram: 03/18/17 1135 03/18/17 1135 Objective Remarks GENERAL: Well-developed, well-nourished, in no acute distress. alert and orientated HEENT: Head is normocephalic without any lesions or masses noted. Facial features are symmetric. Eyes: Pupils equal round reactive to light. Extraocular muscles are intact. Conjunctivae were clear. Oropharyngeal: Pharynx without any erythema edema. Tongue is midline without deviation. Buccal mucosa is moist without any masses or lesions NECK: Supple without any masses. Trachea midline no deviation. No JVD, no bruits are appreciated CARDIAC: Regular rhythm, regular rate. S1/S2 are heard. No murmurs gallops or rubs. LUNGS: Clear to auscultation bilaterally. No wheeze, rhonchi or rales. No use of accessory muscles on inspiration or expiration. ABDOMEN: Soft, nontender. Left sided abdominal pain, no epigastric pain. Bowel sounds heard in all 4 quadrants. No organomegaly or masses. Negative rebound, negative guarding EXTREMITIES: No edema, pulses are equal bilaterally. No cyanosis or clubbing NEUROLOGY: Mood and affect appear appropriate. Cranial nerves II through XII grossly intact. Muscle strength 5/5 in upper and lower extremities bilaterally. Deep tendon reflexes are 2+ in upper and lower extremities bilaterally. Procedures None Medications and IVs Current Medications Medications (Trade) Dose Ordered Sig/Tiffanie Route Start Time Stop Time Status Last Admin (Folate) 1 mg DAILY PO 03/16/17 09:00 03/21/17 08:59 03/18/17 09:55 (Vitamin B1) 100 mg DAILY PO 03/16/17 09:00 03/18/17 09:55 (Theragran M Tab) 1 tab DAILY PO 03/16/17 09:00 03/21/17 08:59 03/18/17 09:55 (Romazicon Inj) 0.2 mg Q1M PRN IV PUSH 03/15/17 23:30 (Ativan) 1 mg Q4H PRN PO 03/15/17 23:30 (Ativan Inj) 1 mg Q4H PRN IV PUSH 03/15/17 23:30 (Ativan) 2 mg Q2H PRN PO 03/15/17 23:30 (Ativan Inj) 2 mg Q2H PRN IV PUSH 03/15/17 23:30 (Ativan Inj) 2 mg Q1H PRN IV PUSH 03/15/17 23:30 (Ativan Inj) 2 mg Q15M PRN IV PUSH 03/15/17 23:30 (Haldol Inj) 2 mg Q15M PRN IM 03/15/17 23:30 (NS Flush) 2 ml UNSCH PRN IV FLUSH 03/15/17 23:30 (NS Flush) 2 ml BID IV FLUSH 03/16/17 09:00 03/18/17 09:56 (Zofran Inj) 4 mg Q6H PRN IVP 03/15/17 23:30 03/16/17 12:22 (Tylenol) 650 mg Q6H PRN PO 03/15/17 23:30 (Morphine Inj) 2 mg Q3H PRN IV PUSH 03/15/17 23:30 (Roxicodone) 5 mg Q4H PRN PO 03/15/17 23:30 (Tiny-Colace) 1 tab BID PO 03/16/17 09:00 03/18/17 09:55 (Milk Of Magnesia Liq) 30 ml Q12H PRN PO 03/15/17 23:30 (Senokot) 17.2 mg Q12H PRN PO 03/15/17 23:30 (Dulcolax Supp) 10 mg DAILY PRN RECTAL 03/15/17 23:30 (Lactulose Liq) 30 ml DAILY PRN PO 03/15/17 23:30 Potassium Chloride/Sodium Chloride 1,000 ml @ 100 mls/hr Q10H IV 03/16/17 09:00 03/18/17 10:03 (Flagyl) 500 mg Q8HR PO 03/17/17 16:00 03/18/17 13:15 Urinary Catheter: No Vascular Central Line Catheter: No A/P Problem List: (1) C. difficile diarrhea ICD Code: A04.7 - Enterocolitis due to Clostridium difficile Status: Acute Plan: The patient started on by mouth Flagyl. Continue (2) Nausea & vomiting ICD Code: R11.2 - Nausea with vomiting, unspecified Status: Resolved Plan: Now resolved. Continue Zofran as needed for nausea and vomiting. (3) Hypokalemia ICD Code: E87.6 - Hypokalemia Plan: At the secondary to GI loss. The patient has been persistently hypokalemic despite oral supplementation of potassium. I will give 20 mEq IV of KCl and gave 30 mg by mouth once a potassium chloride tablets. (4) Alcoholic pancreatitis ICD Code: K85.20 - Alcohol induced acute pancreatitis without necrosis or infection Status: Resolved (5) Alcohol abuse ICD Code: F10.10 - Alcohol abuse Status: Chronic Plan: Advised cessation. No evidence of withdrawal. Continue CIWA protocol, thiamine and folate. (6) Smoker ICD Code: Z72.0 - Smoker Status: Acute Plan: Advises smoking cessation. (7) Thrombocytopenia ICD Code: D69.6 - Thrombocytopenia, unspecified Plan: Likely due to toxic effect of alcohol and bone marrow. Platelets are slowly trending up. Continue to monitor CBC. Assessment and Plan Continue SCDs for DVT prophylaxis. Discharge Planning Patient still has diarrhea and is hypokalemic. Continue to monitor in the medical floor. Problem Qualifiers (1) Nausea & vomiting: Qualified Codes: R11.2 - Nausea with vomiting, unspecified (2) Alcoholic pancreatitis: Dedrick Betancur MD Mar 18, 2017 15:19
[2017-03-19] VITALS: BP 142/95; PULSE 65; RESP 20; TEMP 98.7; O2SAT 98
[2017-03-19 04:00] VITALS: BP 124/82; PULSE 49; RESP 20; TEMP 98.2; O2SAT 98
[2017-03-19] MEDS: metroNIDAZOLE 500 MG TAB PO SCH (05:21)
[2017-03-19 08:00] VITALS: BP 120/72; PULSE 77; RESP 16; TEMP 98.1; O2SAT 96
[2017-03-19] MEDS: DOCUSATE SODIUM 50 MG/SENNA 8.6 MG TAB PO SCH (08:19)
[2017-03-19] MEDS: FOLIC ACID 1 MG TAB PO SCH (08:19)
[2017-03-19] MEDS: MULTIVITAMINS/MINERALS THERAPEUTIC TAB PO SCH (08:19)
[2017-03-19] MEDS: THIAMINE HCL 100 MG TAB PO SCH (08:19)
[2017-03-19] MEDS: NS + KCL 20 MEQ INJ 1,000 ML IV SCH (08:20)
[2017-03-19] MEDS: SODIUM CHLORIDE 0.9% FLUSH 10 ML FLUSH IV FLUSH SCH (08:20)
[2017-03-19 10:47] LABS: POTASSIUM 3.5 MEQ/L (3.5-5.1)
[2017-03-19 10:50] LABS: BICARBONATE 26.6 MEQ/L (21.0-32.0); MAGNESIUM 1.5 MG/DL (1.5-2.5)
[2017-03-19] MEDS ORDERED: METR-1 PO (11:58)
--- NOTE | 2017-03-19 11:58 | HHI.DCPOC ---
Discharge Care Plan Diagnosis: (1) Alcoholic pancreatitis (2) C. difficile diarrhea Goals to Promote Your Health * To prevent worsening of your condition and complications * To maintain your health at the optimal level Directions to Meet Your Goals Take your medications as prescribed Follow your dietary instruction Follow activity as directed Keep your appointments as scheduled Take your immunizations and boosters as scheduled If your symptoms worsen call your PCP, if no PCP go to Urgent Care Center or Emergency Room Smoking is Dangerous to Your Health. Avoid second hand smoke Call the 24-hour hour crisis hotline for domestic abuse at Fidelia Parikh MD Mar 19, 2017 11:58
--- NOTE | 2017-03-19 12:02 | HHI.DS ---
Discharge Summary Admission Date Mar 15, 2017 at 23:30 Discharge Date: Mar 19, 2017 Admitting Diagnosis alcohol withdrawal, hypokalemia, alcoholic pancreatitis, dehydration (1) C. difficile diarrhea ICD Code: A04.7 - Enterocolitis due to Clostridium difficile Status: Acute (2) Hypokalemia ICD Code: E87.6 - Hypokalemia (3) Alcoholic pancreatitis ICD Code: K85.20 - Alcohol induced acute pancreatitis without necrosis or infection Status: Resolved (4) Alcohol abuse ICD Code: F10.10 - Alcohol abuse Status: Chronic (5) Smoker ICD Code: Z72.0 - Smoker Status: Acute (6) Thrombocytopenia ICD Code: D69.6 - Thrombocytopenia, unspecified Procedures None Brief History - From Admission Written by Jorden Reed, acting as scribe for Dr. Ley on 03/16/17 at 17:31. 56 year-old male with known history of chronic alcoholism, history of recurrent pancreatitis, chronic obstructive pulmonary disease, gastroesophageal reflux who presented to the hospital because of 3 day history of intractable nausea vomiting. Patient states he has normal state of health until 3 days ago when he started having intractable nausea vomiting, diarrhea. Patient does drink a pint of vodka daily, he has not been a change to any alcohol since his nausea vomiting started so he was worried about detoxing so he came to the hospital for evaluation. Patient had workup done in found to have significant electrolyte abnormalities with hypokalemia, elevated lipase level was could be indicative of pancreatitis. Because of those reasons the patient was recommended admission to the hospital for further evaluation and management. Since then the patient was eating breakfast 1 evaluated this morning without any recurrent nausea vomiting. Patient states that he did have at least 15 episodes of diarrhea last night. He denies any sick exposures. Fever, chills. He has not had any recurrent nausea or vomiting. Patient does have some abdominal pain located over on the left lateral side. No epigastric tenderness or pain CBC/BMP: 03/18/17 1135 03/19/17 1030 Significant Findings Laboratory Tests Test 03/16/17 20:22 03/17/17 06:25 03/17/17 16:07 03/18/17 11:35 Stool C. difficile Toxin (PCR) POSITIVE (NEGATIVE) Red Blood Count 3.97 MIL/MM3 (4.50-5.90) 4.42 MIL/MM3 (4.50-5.90) Hemoglobin 10.6 GM/DL (13.0-17.0) 11.4 GM/DL (13.0-17.0) Hematocrit 32.3 % (39.0-51.0) 35.8 % (39.0-51.0) Mean Corpuscular Hemoglobin 26.6 PG (27.0-34.0) 25.8 PG (27.0-34.0) Red Cell Distribution Width 21.6 % (11.6-17.2) 21.0 % (11.6-17.2) Platelet Count 77 TH/MM3 (150-450) 102 TH/MM3 (150-450) Neutrophils (%) (Auto) 72.3 % (16.0-70.0) Monocytes (%) (Auto) 10.1 % (0.0-8.0) 17.0 % (0.0-8.0) Lymphocytes # (Auto) 0.8 TH/MM3 (1.0-4.8) 0.8 TH/MM3 (1.0-4.8) Platelet Estimate LOW (NORMAL) Calcium Level 7.9 MG/DL (8.5-10.1) Potassium Level 2.7 MEQ/L (3.5-5.1) 3.3 MEQ/L (3.5-5.1) 3.0 MEQ/L (3.5-5.1) Lipase 553 U/L (73-393) Mean Corpuscular Hemoglobin Concent 31.9 % (32.0-36.0) Eosinophils (%) (Auto) 5.4 % (0.0-4.0) Blood Urea Nitrogen 4 MG/DL (7-18) Albumin 3.2 GM/DL (3.4-5.0) Aspartate Amino Transf (AST/SGOT) 90 U/L (15-37) Test 03/19/17 10:30 Blood Urea Nitrogen 3 MG/DL (7-18) Random Glucose 110 MG/DL (74-106) Imaging none PE at Discharge GENERAL: Well-developed, well-nourished, in no acute distress. alert and orientated HEENT: Head is normocephalic without any lesions or masses noted. Facial features are symmetric. Eyes: Pupils equal round reactive to light. Extraocular muscles are intact. Conjunctivae were clear. Oropharyngeal: Pharynx without any erythema edema. Tongue is midline without deviation. Buccal mucosa is moist without any masses or lesions NECK: Supple without any masses. Trachea midline no deviation. No JVD, no bruits are appreciated CARDIAC: Regular rhythm, regular rate. S1/S2 are heard. No murmurs gallops or rubs. LUNGS: Clear to auscultation bilaterally. No wheeze, rhonchi or rales. No use of accessory muscles on inspiration or expiration. ABDOMEN: Soft, nontender. Left sided abdominal pain, no epigastric pain. Bowel sounds heard in all 4 quadrants. No organomegaly or masses. Negative rebound, negative guarding EXTREMITIES: No edema, pulses are equal bilaterally. No cyanosis or clubbing NEUROLOGY: Mood and affect appear appropriate. Cranial nerves II through XII grossly intact. Muscle strength 5/5 in upper and lower extremities bilaterally. Deep tendon reflexes are 2+ in upper and lower extremities bilaterally. Pt update on day of discharge Doing well, anxious for dc today. Stool solid. Hospital Course patient was treated for mild C. difficile diarrhea disease with oral Metronidazole his associated Nausea & vomiting resolved. his electrolytes were corrected. He was counselled against etoh dependency His Thrombocytopenia remained stable Pt Condition on Discharge: Good Discharge Disposition: Discharge Home Discharge Time: <= 30 minutes Discharge Instructions DIET: Follow Instructions for: As Tolerated, No Restrictions Activities you can perform: Regular-No Restrictions New Medications: Metronidazole (Flagyl) 500 Mg Tab 500 MG PO Q8HR for Infection, #24 Fidelia De Jesus MD Mar 19, 2017 12:02
== END 2017-03-19 13:16 | disposition home or self-care (01) | DRG 371 ==
LOC: PHED 20:58 → PHEDA 23:30 → PH3B 03-16 01:04
PROVIDERS: ADMIT Hospitalist; ATTEND Hospitalist
DX: A04.7 Enterocolitis due to Clostridium difficile (principal); K85.20 Alcohol induced acute pancreatitis without necrosis or infection; D69.6 Thrombocytopenia, unspecified; E86.0 Dehydration; E86.1 Hypovolemia; E87.6 Hypokalemia; F17.210 Nicotine dependence, cigarettes, uncomplicated; I10 Essential (primary) hypertension; K21.9 Gastro-esophageal reflux disease without esophagitis; F10.20 Alcohol dependence, uncomplicated; J44.9 Chronic obstructive pulmonary disease, unspecified; F41.9 Anxiety disorder, unspecified; F32.9 Major depressive disorder, single episode, unspecified; J45.909 Unspecified asthma, uncomplicated; Z59.0 Homelessness; Z23 Encounter for immunization
CPT/HCPCS: 80048; 80053; 82948; 83690; 83735; 84100; 84132; 85025; 87205; 87493; 87506; 90686; 96361; 96374; J2405; J3411; J3480; J7030; Q2038

== ENCOUNTER 2017-08-01 20:43 | Observation (INO) | payer SELFPAY ==
[~2017-08-01] VITALS: Ht 175.3 cm; Wt 60.0 kg
[~2017-08-01 20:43] MED LIST changes: -CILO0.3S EACH EYE; +FOLI1TAB6 PO; -METO25 PO; +POTA20TA5 PO; +THIA100 PO; -TRAZ100T4 PO
[2017-08-01 20:50] VITALS: BP 115/68; PULSE 94; RESP 18; TEMP 97.7; O2SAT 97
[2017-08-01 20:59] VITALS: BP 108/79; PULSE 108; RESP 20; O2SAT 100
[2017-08-01] MEDS ORDERED: FAMOTIDINE 20 MG/2 ML VIAL IV PUSH SCH (21:15)
[2017-08-01] MEDS ORDERED: ASPIRIN 81 MG CHEW TAB CHEW ONE (21:15)
[2017-08-01 21:20] LABS: AUTOMATED NEUTROPHIL # 4.8 TH/MM3 (1.8-7.7); BASOPHIL # 0.2 TH/MM3 (0-0.2); BASOPHIL % 2.2 % (0.0-2.0); EOSINOPHIL # 0.2 TH/MM3 (0-0.4); EOSINOPHIL % 2.5 % (0.0-4.0); HEMATOCRIT 28.2 % (39.0-51.0); HEMOGLOBIN 9.1 GM/DL (13.0-17.0); LYMPH % 26.6 % (9.0-44.0); LYMPHOCYTE # 2.2 TH/MM3 (1.0-4.8); MEAN CELL VOLUME 88.8 FL (80.0-100.0); MEAN CORPUSCULAR HEMOGLOBIN 28.5 PG (27.0-34.0); MEAN CORPUSCULAR HGB CONC 32.1 % (32.0-36.0); MEAN PLATELET VOLUME 6.7 FL (7.0-11.0); MONO % 9.9 % (0.0-8.0); MONOCYTE # 0.8 TH/MM3 (0-0.9); NEUT % 58.8 % (16.0-70.0); PLATELET COUNT 208 TH/MM3 (150-450); RED BLOOD COUNT 3.18 MIL/MM3 (4.50-5.90); WHITE BLOOD COUNT 8.1 TH/MM3 (4.0-11.0)
--- NOTE | 2017-08-01 21:58 | RADRPT ---
EXAM DATE/TIME: 08/01/2017 21:11 [facility] COMPARISON: No previous studies available for comparison. INDICATIONS : Chest pain. Short of breath. MEDICAL HISTORY : Chronic obstructive pulmonary disease. SURGICAL HISTORY : None. ENCOUNTER: Initial ACUITY: 4 - 6 days PAIN SCORE: 7/10 LOCATION: Bilateral chest FINDINGS: The heart is enlarged. Mild central pulmonary vascular congestion is noted. No focal alveolar consoli dation is noted. CONCLUSION: Cardiomegaly and mild central pulmonary vascular congestion. Mert Anthony MD on August 01, 2017 at 21:55 Board Certified Radiologist. This report was verified electronically.
[2017-08-01 21:59] LABS: ALKALINE PHOSPHATASE 144 U/L (45-117); ALT (GPT) 22 U/L (12-78); AST (GOT) 78 U/L (15-37); BICARBONATE 25.2 MEQ/L (21.0-32.0); BLOOD UREA NITROGEN 4 MG/DL (7-18); CALCIUM 8.3 MG/DL (8.5-10.1); CHLORIDE 106 MEQ/L (98-107); GLOMERULAR FILTRATION RATE 87 ML/MIN (>89); GLUCOSE,RANDOM 102 MG/DL (74-106); SODIUM (NA) 143 MEQ/L (136-145); TOTAL BILIRUBIN ADULT 0.5 MG/DL (0.2-1.0); TROPONIN I LESS THAN 0.02 NG/ML (0.02-0.05)
[2017-08-01] MEDS: D5-NS + KCL 40 MEQ INJ 1,000 ML IV SCH (23:38)
[2017-08-01] MEDS ORDERED: POTASSIUM CHLORIDE 20 MEQ CONTROLLED RELEASE TAB PO ONE (23:45)
[2017-08-01 23:51] VITALS: BP 99/58; PULSE 88; RESP 18; O2SAT 100
--- NOTE | 2017-08-01 23:55 | PD ---
HPI Chief Complaint: Respiratory Symptoms Time Seen by Provider: 21:03 Travel History International Travel<30 days: No Contact w/Intl Traveler<30days: No Traveled to known affect area: No History of Present Illness HPI Patient is a 57-year-old male who is reporting generalized weakness and malaise for the last 3 days vomiting not eating and weakness getting worse, He is vague on detialed pmhx, non toxic appearing awake alert and cooperative. Reviewing medical records multiple visits over the years for hypokalemia, denies diuretics or renal tubular disease PFSH Past Medical History Medical History: Denies Significant Hx Arthritis: No Asthma: Yes Blood Disorders: No Anxiety: Yes Depression: Yes Heart Rhythm Problems: No Cancer: No Cardiovascular Problems: Yes (htn, chest pain,) High Cholesterol: No Chemotherapy: No Chest Pain: Yes Congestive Heart Failure: No COPD: Yes Cerebrovascular Accident: No Diabetes: No Diminished Hearing: No Endocrine: No Gastrointestinal Disorders: Yes (diarrhea) GERD: Yes Genitourinary: No Headaches: No Hepatitis: No Hiatal Hernia: No Hypertension: Yes Immune Disorder: No Musculoskeletal: Yes (tightness in chest) Neurologic: Yes Psychiatric: Yes Reproductive: No Respiratory: Yes Immunizations Current: No Migraines: No Myocardial Infarction: No Pancreatitis: Yes Radiation Therapy: No Seizures: No Sleep Apnea: No Thyroid Disease: No Ulcer: No Tetanus Vaccination: < 5 Years Influenza Vaccination: No Past Surgical History Abdominal Surgery: No Appendectomy: No Cardiac Surgery: No Cholecystectomy: No Ear Surgery: No Endocrine Surgery: No Eye Surgery: Yes (rt eye laser sugery 1999) Genitourinary Surgery: No Gynecologic Surgery: No Oral Surgery: Yes (top implanted front dentures) Thoracic Surgery: No Other Surgery: Yes (eft wrist and left ankle) Social History Alcohol Use: Yes Tobacco Use: Yes (1 PPD) Substance Use: No Allergies-Medications (Allergen,Severity, Reaction): Coded Allergies: No Known Allergies (Verified Allergy, Unknown, 05/02/17) Reported Meds & Prescriptions Reported Meds & Active Scripts Active Gnp Vitamin B-1 (Thiamine HCl) 100 Mg Tab 100 Mg PO DAILY Folic Acid 1 Mg Tablet 1 Mg PO DAILY Potassium Chloride Microencaps 20 Meq Tab 20 Meq PO BID Review of Systems Except as stated in HPI: all other systems reviewed are Neg General / Constitutional: Positive: Other (weakness generalized muscle weakness ) Gastrointestinal: Positive: Nausea, Vomiting, Abdominal Pain Musculoskeletal: Positive: Weakness Physical Exam Narrative GENERAL: Awake alert nontoxic appearing SKIN: Warm and dry. HEAD: Atraumatic. Normocephalic. EYES: Pupils equal and round. No scleral icterus. No injection or drainage. ENT: No nasal bleeding or discharge. Mucous membranes pink and moist. NECK: Trachea midline. No JVD. CARDIOVASCULAR: Regular rate and rhythm. RESPIRATORY: No accessory muscle use. Clear to auscultation. Breath sounds equal bilaterally. GASTROINTESTINAL: Abdomen soft, non-tender, nondistended. Hepatic and splenic margins not palpable. MUSCULOSKELETAL: Extremities without clubbing, cyanosis, or edema. No obvious deformities. NEUROLOGICAL: Awake and alert. No obvious cranial nerve deficits. Motor grossly within normal limits. Five out of 5 muscle strength in the arms and legs. Normal speech. PSYCHIATRIC: Appropriate mood and affect; insight and judgment normal. Data Data Last Documented VS Vital Signs Date Time Temp Pulse Resp B/P (MAP) Pulse Ox O2 Delivery O2 Flow Rate FiO2 08/02/17 06:23 92 18 136/95 (109) 100 08/01/17 23:51 Room Air 08/01/17 20:50 97.7 Orders Orders Electrocardiogram (08/01/17 21:03) Complete Blood Count With Diff (08/01/17 21:03) Comprehensive Metabolic Panel (08/01/17 21:03) Ckmb (Isoenzyme) Profile (08/01/17 21:03) Troponin I (08/01/17 21:03) Lipase (08/01/17 21:03) Chest, Pa & Lat (08/01/17 21:03) Famotidine Inj (Pepcid Inj) (08/01/17 21:15) Aspirin Chew (Aspirin Chew) (08/01/17 21:15) D5-Ns + Kcl 40 Meq Inj (D5-Ns + Kcl 40 M (08/01/17 23:00) Potassium Chloride (Kcl) (08/02/17 09:00) Potassium Chloride (Kcl) (08/01/17 23:45) Ketorolac Inj (Toradol Inj) (08/02/17 02:15) Ondansetron Inj (Zofran Inj) (08/02/17 02:17) Meclizine (Antivert) (08/02/17 02:30) Ondansetron Inj (Zofran Inj) (08/02/17 02:30) Comprehensive Metabolic Panel (08/02/17 03:53) Metoclopramide Inj (Reglan Inj) (08/02/17 05:45) Orthostatic Vital Signs (08/02/17 05:59) Metoprolol Tartrate Inj (Lopressor Inj) (08/02/17 06:15) Lorazepam Inj (Ativan Inj) (08/02/17 06:15) Place In Observation (08/02/17 ) Vital Signs (Adult) Q4H (08/02/17 06:20) Activity Oob With Assistance (08/02/17 06:20) Diet Heart Healthy (08/02/17 Breakfast) Sodium Chloride 0.9% Flush (Ns Flush) (08/02/17 06:30) Sodium Chloride 0.9% Flush (Ns Flush) (08/02/17 09:00) Ondansetron Inj (Zofran Inj) (08/02/17 06:30) Pt Request For Service (08/02/17 06:20) Naloxone Inj (Narcan Inj) (08/02/17 06:30) Docusate Sodium-Senna (Tiny-Colace) (08/02/17 09:00) Magnesium Hydroxide Liq (Milk Of Magnesi (08/02/17 06:30) Sennosides (Senokot) (08/02/17 06:30) Bisacodyl Supp (Dulcolax Supp) (08/02/17 06:30) Lactulose Liq (Lactulose Liq) (08/02/17 06:30) Alcohol Withdrawal Asmt-Ciwa Q4HX18 (08/02/17 06:20) Flumazenil Inj (Romazicon Inj) (08/02/17 06:30) Lorazepam (Ativan) (08/02/17 06:30) Lorazepam Inj (Ativan Inj) (08/02/17 06:30) Lorazepam (Ativan) (08/02/17 06:30) Lorazepam Inj (Ativan Inj) (08/02/17 06:30) Lorazepam Inj (Ativan Inj) (08/02/17 06:30) Lorazepam Inj (Ativan Inj) (08/02/17 06:30) Coil Winder / Telemetry BLAINE.Q8H (08/02/17 06:20) Metoprolol Tartrate Inj (Lopressor Inj) (08/02/17 06:30) Admit Order (Ed Use Only) (08/02/17 06:27) Labs Laboratory Tests Test 08/01/17 21:01 08/02/17 04:00 White Blood Count 8.1 TH/MM3 Red Blood Count 3.18 MIL/MM3 Hemoglobin 9.1 GM/DL Hematocrit 28.2 % Mean Corpuscular Volume 88.8 FL Mean Corpuscular Hemoglobin 28.5 PG Mean Corpuscular Hemoglobin Concent 32.1 % Red Cell Distribution Width 19.0 % Platelet Count 208 TH/MM3 Mean Platelet Volume 6.7 FL Neutrophils (%) (Auto) 58.8 % Lymphocytes (%) (Auto) 26.6 % Monocytes (%) (Auto) 9.9 % Eosinophils (%) (Auto) 2.5 % Basophils (%) (Auto) 2.2 % Neutrophils # (Auto) 4.8 TH/MM3 Lymphocytes # (Auto) 2.2 TH/MM3 Monocytes # (Auto) 0.8 TH/MM3 Eosinophils # (Auto) 0.2 TH/MM3 Basophils # (Auto) 0.2 TH/MM3 CBC Comment DIFF FINAL Differential Comment Blood Urea Nitrogen 4 MG/DL 4 MG/DL Creatinine 0.90 MG/DL 0.80 MG/DL Random Glucose 102 MG/DL 144 MG/DL Total Protein 7.0 GM/DL 6.4 GM/DL Albumin 3.0 GM/DL 2.6 GM/DL Calcium Level 8.3 MG/DL 7.7 MG/DL Alkaline Phosphatase 144 U/L 118 U/L Aspartate Amino Transf (AST/SGOT) 78 U/L 63 U/L Alanine Aminotransferase (ALT/SGPT) 22 U/L 19 U/L Total Bilirubin 0.5 MG/DL 0.6 MG/DL Sodium Level 143 MEQ/L 143 MEQ/L Potassium Level 2.9 MEQ/L 4.3 MEQ/L Chloride Level 106 MEQ/L 111 MEQ/L Carbon Dioxide Level 25.2 MEQ/L 26.2 MEQ/L Anion Gap 12 MEQ/L 6 MEQ/L Estimat Glomerular Filtration Rate 87 ML/MIN 99 ML/MIN Total Creatine Kinase 57 U/L Troponin I LESS THAN 0.02 NG/ML Lipase 664 U/L MDM Medical Decision Making Medical Screen Exam Complete: Yes Emergency Medical Condition: Yes Medical Record Reviewed: Yes Differential Diagnosis weakness from UTI URI viral illness hypokalemia etoh withdrawal, other Narrative Course pt given K in FLUID and PO and zofran pt keeps having vomit and then runs of SVT during orthostatics he has run of SVT 177 I need to admit to assure that hypokalemia is not cause of cardiac arrhythmia need monitoring and , I give Lopressor and Ativan to correct arrhythmia in ER Abilio Pedroza MD Aug 01, 2017 23:55
[2017-08-02] MEDS ORDERED: KETOROLAC TROMETHAMINE 30 MG/ML (IVP) VIAL IV PUSH ONE (02:15)
[2017-08-02] MEDS ORDERED: ONDANSETRON HCL 4 MG/2 ML VIAL ONE (02:17)
[2017-08-02] MEDS ORDERED: MECLIZINE HCL 25 MG TAB PO ONE (02:30)
[2017-08-02] MEDS ORDERED: ONDANSETRON HCL 4 MG/2 ML VIAL IV PUSH ONE (02:30)
[2017-08-02 04:54] LABS: ALBUMIN 2.6 GM/DL (3.4-5.0); ALKALINE PHOSPHATASE 118 U/L (45-117); ALT (GPT) 19 U/L (12-78); AST (GOT) 63 U/L (15-37); BICARBONATE 26.2 MEQ/L (21.0-32.0); BLOOD UREA NITROGEN 4 MG/DL (7-18); CALCIUM 7.7 MG/DL (8.5-10.1); CHLORIDE 111 MEQ/L (98-107); GLOMERULAR FILTRATION RATE 99 ML/MIN (>89); GLUCOSE,RANDOM 144 MG/DL (74-106); SODIUM (NA) 143 MEQ/L (136-145); TOTAL BILIRUBIN ADULT 0.6 MG/DL (0.2-1.0); TOTAL PROTEIN 6.4 GM/DL (6.4-8.2)
[2017-08-02] MEDS ORDERED: METOCLOPRAMIDE INJ 10 MG in SODIUM CHLORIDE 0.9% INJ 50 ML IV ONE (05:45)
[2017-08-02 06:05] VITALS: BP 128/84; RESP 18
[2017-08-02 06:06] VITALS: BP_SYST 133; BP_DIAS 80; BP_DIAS 89; RESP 20; RESP 22
[2017-08-02] MEDS ORDERED: LORazepam 2 MG/ML VIAL IV PUSH ONE (06:15)
[2017-08-02] MEDS ORDERED: METOPROLOL TARTRATE 5 MG/5 ML VIAL IV PUSH ONE ×2 (06:15→06:30)
[2017-08-02 06:23] VITALS: BP 136/95; PULSE 92; RESP 18; O2SAT 100
[2017-08-02] MEDS ORDERED: ONDANSETRON HCL 4 MG/2 ML VIAL IVP PRN (06:30)
[2017-08-02] MEDS ORDERED: BISACODYL 10 MG SUPP RECTAL PRN (06:30)
[2017-08-02] MEDS ORDERED: LORazepam 1 MG TAB PO PRN (06:30)
[2017-08-02] MEDS ORDERED: NALOXONE HCL 0.4 MG/ML AMP IV PUSH PRN (06:30)
[2017-08-02] MEDS ORDERED: MAGNESIUM HYDROXIDE SUSP 30 ML CUP PO PRN (06:30)
[2017-08-02] MEDS ORDERED: LORazepam 2 MG TAB PO PRN (06:30)
[2017-08-02] MEDS ORDERED: FLUMAZENIL 0.5 MG/5 ML VIAL IV PUSH PRN (06:30)
[2017-08-02] MEDS ORDERED: SENNOSIDES 8.6 MG TAB PO PRN (06:30)
[2017-08-02] MEDS ORDERED: SODIUM CHLORIDE 0.9% FLUSH 10 ML FLUSH IV FLUSH PRN (06:30)
[2017-08-02] MEDS ORDERED: LACTULOSE SYRUP 20 GM/30 ML CUP PO PRN (06:30)
[2017-08-02] MEDS ORDERED: LORazepam 2 MG/ML VIAL IV PUSH PRN ×4 (06:30)
--- NOTE | 2017-08-02 08:29 | HHI.HP ---
[facility] Service [facility] Primary Care Physician No Primary Care Physician Admission Diagnosis Lightheadedness and intractable emesis Diagnoses: Chief Complaint: dizziness and intractable emesis Travel History International Travel<30 Days: No Contact w/Intl Traveler <30 Da: No Traveled to Known Affected Are: No History of Present Illness This is a 57-year-old male with chronic alcoholism, history of pancreatitis due to alcoholism and GERD who presented with dizziness and intractable emesis. History taken from the patient who is AAO 4. Patient was not signed out to me and documentation was not completed by ER physician. I also spoke to patient's nurse Brook who did not know why patient was here. Per patient he was here due to dizziness but he feels great now and asking to go home. He stated that when he gets up and stands he feels like he needs he wants to pass out but hold onto the wall and he stated that it resolves quickly. Patient drinks about 6-7 ounces of vodka every day. He stated that he stopped about 2 days ago and has not drinking anything since. Patient also stated that he was vomiting past 3 weeks described as yellow. At the moment patient has no episodes of emesis. Denies any abdominal pain. He is AAO X 4 and response to questions appropriately. When asked why he thought he was here for 6 days he stated that initially he thought that. Otherwise patient knows exactly where he is at and able to answer all questions appropriately and accurately. Patient denies any chest pain, shortness of breathing, palpitation. Deny any constipation or diarrhea. All other review system reviewed and negative. Past Family Social History Past Medical History Chronic alcoholism Anxiety Chronic affective pulmonary disease Gastroesophageal reflux History of pancreatitis History of hypertension Past Surgical History Left wrist surgery Right eye laser surgery Oral surgery for implanted dentures Reported Medications Gnp Vitamin B-1 (Thiamine HCl) 100 Mg Tab 100 Mg PO DAILY Folic Acid 1 Mg Tablet 1 Mg PO DAILY Potassium Chloride Microencaps 20 Meq Tab 20 Meq PO BID Allergies: Coded Allergies: No Known Allergies (Verified Allergy, Unknown, 05/02/17) Active Ordered Medications Reported Meds & Active Scripts Active Gnp Vitamin B-1 (Thiamine HCl) 100 Mg Tab 100 Mg PO DAILY Folic Acid 1 Mg Tablet 1 Mg PO DAILY Potassium Chloride Microencaps 20 Meq Tab 20 Meq PO BID Family History Reviewed is significant for father having myocardial infarction at age 59. Social History Patient smokes 1 pack a cigarettes a day since he was 15 years old. He drinks 7 -8 ounces voldka a day. He does have withdrawal symptoms if he does not drink. Denies any illicit drugs Physical Exam Vital Signs Vital Signs Date Time Temp Pulse Resp B/P (MAP) Pulse Ox O2 Delivery O2 Flow Rate FiO2 08/02/17 08:09 100 08/02/17 06:23 92 18 136/95 (109) 100 08/02/17 06:06 122 20 133/89 (104) 08/02/17 06:06 140 22 133/80 (97) 08/02/17 06:05 112 18 128/84 (99) 08/01/17 23:51 88 18 99/58 (72) 100 Room Air 08/01/17 20:59 108 20 108/79 (89) 100 Room Air 08/01/17 20:59 101 20 97 Room Air 08/01/17 20:50 97.7 94 18 115/68 (84) 97 Physical Exam GENERAL: This is a well-nourished, well-developed patient, in no apparent distress. SKIN: No rashes, ecchymoses or lesions. Cool and dry. HEAD: Atraumatic. Normocephalic. No temporal or scalp tenderness. EYES: Pupils equal round and reactive. Extraocular motions intact. No scleral icterus. No injection or drainage. ENT: Nose without bleeding, purulent drainage or septal hematoma. Throat without erythema, tonsillar hypertrophy or exudate. Uvula midline. Airway patent. NECK: Trachea midline. No JVD or lymphadenopathy. Supple, nontender, no meningeal signs. CARDIOVASCULAR: Regular rate and rhythm without murmurs, gallops, or rubs. RESPIRATORY: Clear to auscultation. Breath sounds equal bilaterally. No wheezes , rales, or rhonchi. GASTROINTESTINAL: Abdomen soft, non-tender, nondistended. No hepato-splenomegaly , or palpable masses. No guarding. MUSCULOSKELETAL: Extremities without clubbing, cyanosis, or edema. No joint tenderness, effusion, or edema noted. No calf tenderness. Negative Homans sign bilaterally. NEUROLOGICAL: Awake and alert. Cranial nerves II through XII intact. Motor and sensory grossly within normal limits. Five out of 5 muscle strength in all muscle groups. Normal speech. Laboratory Laboratory Tests Test 08/01/17 21:01 08/02/17 04:00 White Blood Count 8.1 Red Blood Count 3.18 Hemoglobin 9.1 Hematocrit 28.2 Mean Corpuscular Volume 88.8 Mean Corpuscular Hemoglobin 28.5 Mean Corpuscular Hemoglobin Concent 32.1 Red Cell Distribution Width 19.0 Platelet Count 208 Mean Platelet Volume 6.7 Neutrophils (%) (Auto) 58.8 Lymphocytes (%) (Auto) 26.6 Monocytes (%) (Auto) 9.9 Eosinophils (%) (Auto) 2.5 Basophils (%) (Auto) 2.2 Neutrophils # (Auto) 4.8 Lymphocytes # (Auto) 2.2 Monocytes # (Auto) 0.8 Eosinophils # (Auto) 0.2 Basophils # (Auto) 0.2 CBC Comment DIFF FINAL Differential Comment Blood Urea Nitrogen 4 4 Creatinine 0.90 0.80 Random Glucose 102 144 Total Protein 7.0 6.4 Albumin 3.0 2.6 Calcium Level 8.3 7.7 Alkaline Phosphatase 144 118 Aspartate Amino Transf (AST/SGOT) 78 63 Alanine Aminotransferase (ALT/SGPT) 22 19 Total Bilirubin 0.5 0.6 Sodium Level 143 143 Potassium Level 2.9 4.3 Chloride Level 106 111 Carbon Dioxide Level 25.2 26.2 Anion Gap 12 6 Estimat Glomerular Filtration Rate 87 99 Total Creatine Kinase 57 Troponin I LESS THAN 0.02 Lipase 664 Result Diagram: 08/01/17210008/02/17 0400 Imaging Last Impressions Chest X-Ray 08/01/172102 Signed Impressions: Service Date/Time: Tuesday, August 01, 2017 21:11 - CONCLUSION: Cardiomegaly and mild central pulmonary vascular congestion. MD Tomas Pateli VTE Risk Assessment Caprini VTE Risk Assessment: Mod/High Risk (score >= 2) Caprini Risk Assessment Model Point Value = 1 Point Value = 2 Point Value = 3 Point Value = 5 Age 41-60 Minor surgery BMI > 25 kg/m2 Swollen legs Varicose veins or History of unexplained or recurrent spontaneous Oral contraceptives or hormone replacement Sepsis (< 1 month) Serious lung disease, including pneumonia (< 1 month) Abnormal pulmonary function Acute myocardial infarction Congestive heart failure (< 1 month) History of inflammatory bowel disease Medical patient at bed rest Age 61-74 Arthroscopic surgery Major open surgery (> 45 min) Laparoscopic surgery (> 45 min) Malignancy Confined to bed (> 72 hours) Immobilizing plaster cast Central venous access Age >= 75 History of VTE Family history of VTE Factor V Leiden Prothrombin [id number] Lupus anticoagulant Anticardiolipin antibodies Elevated serum homocysteine Heparin-induced thrombocytopenia Other congenital or acquired thrombophilia Stroke (< 1 month) Elective arthroplasty Hip, pelvis, or leg fracture Acute spinal cord injury (< 1 month) Prophylaxis Regimen Total Risk Factor Score Risk Level Prophylaxis Regimen 0-1 Low Early ambulation 2 Moderate Order ONE of the following: *Sequential Compression Device (SCD) *Heparin 5000 units SQ BID 3-4 Higher Order ONE of the following medications: *Heparin 5000 units SQ TID *Enoxaparin/Lovenox 40 mg SQ daily (WT < 150 kg, CrCl > 30 mL/min) *Enoxaparin/Lovenox 30 mg SQ daily (WT < 150 kg, CrCl > 10-29 mL/min) *Enoxaparin/Lovenox 30 mg SQ BID (WT < 150 kg, CrCl > 30 mL/min) AND/OR *Sequential Compression Device (SCD) 5 or more Highest Order ONE of the following medications: *Heparin 5000 units SQ TID (Preferred with Epidurals) *Enoxaparin/Lovenox 40 mg SQ daily (WT < 150 kg, CrCl > 30 mL/min) *Enoxaparin/Lovenox 30 mg SQ daily (WT < 150 kg, CrCl > 10-29 mL/min) *Enoxaparin/Lovenox 30 mg SQ BID (WT < 150 kg, CrCl > 30 mL/min) AND *Sequential Compression Device (SCD) Assessment and Plan Assessment and Plan 57-year-old alcoholic who presented with lightheadedness and intractable emesis Pancreatitis -Lipase elevated at 600s. Secondary to alcoholism. This has been a chronic issue. -At the moment patient is asymptomatic with mild tenderness to palpation in the abdominal area. -Education given about alcoholic cessation. -Will try oral intake since patient looks very comfortable and no emesis witness today. If it patient can take oral intake can be discharged home later today. Will also give Protonix. -In the meantime supportive care with IV fluids. Lightheadedness -Secondary to alcoholism. -Labs reviewed. Most likely patient was dehydrated. -On IV fluids. -Orthostatics done and negative. Resolved quickly during his hospital course here. Alcoholism -No signs of alcohol withdrawal. Patient on CIWA protocol. 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 He is still functional. Hypokalemia -Secondary to emesis due to pancreatitis. Treatment as above. Patient was given potassium in emergency department and potassium is now normal. Discussed Condition With patient and nurse Anali. Janie Andino MD Aug 02, 2017 08:29
[2017-08-02 08:31] VITALS: BP_SYST 130; BP_SYST 140; BP_DIAS 78; BP_DIAS 80; BP_DIAS 82; PULSE 80
[2017-08-02] MEDS: D5-NS + KCL 40 MEQ INJ 1,000 ML IV SCH (08:53)
[2017-08-02] MEDS ORDERED: SODIUM CHLORIDE 0.9% FLUSH 10 ML FLUSH IV FLUSH SCH (09:00)
[2017-08-02] MEDS ORDERED: DOCUSATE SODIUM 50 MG/SENNA 8.6 MG TAB PO SCH (09:00)
[2017-08-02] MEDS ORDERED: POTASSIUM CHLORIDE 20 MEQ CONTROLLED RELEASE TAB PO SCH (09:00)
[2017-08-02 09:56] VITALS: PULSE 84
--- NOTE | 2017-08-02 11:41 | HHI.DCPOC ---
Discharge Care Plan Diagnosis: (1) intractable emesis (2) Hypokalemia (3) Dizziness (4) Alcoholism Goals to Promote Your Health * To prevent worsening of your condition and complications * To maintain your health at the optimal level Directions to Meet Your Goals Take your medications as prescribed Follow your dietary instruction Follow activity as directed Keep your appointments as scheduled Take your immunizations and boosters as scheduled If your symptoms worsen call your PCP, if no PCP go to Urgent Care Center or Emergency Room Smoking is Dangerous to Your Health. Avoid second hand smoke Call the 24-hour hour crisis hotline for domestic abuse at Janie Andino MD Aug 02, 2017 11:41
[2017-08-02 12:11] VITALS: BP 132/62; PULSE 78; RESP 18; TEMP 97.9; O2SAT 96
--- NOTE | 2017-08-02 15:20 | EKG ---
Date Performed: 08/01/2017 Time Performed: 21:02:02 PTAGE: 57 years EKG: Sinus rhythm POSSIBLE RIGHT VENTRICULAR CONDUCTION DELAY MINIMAL VOLTAGE CRITERIA FOR LVH, CONSIDER NORMAL VARIAN T BORDERLINE ECG Compared to PREVIOUS TRACING , QRS voltage is slightly more prominent in limb leads, but less promine nt in precordial leads. PREVIOUS TRACIN05/02/2017 18.35 DOCTOR: Mian Sanchez Interpretating Date/Time 08/02/2017 15:19:44
== END 2017-08-02 12:21 | disposition home or self-care (01) ==
LOC: NEPC 20:43 → NEDA 08-02 06:29 → NEPFCDU 08-02 07:56
PROVIDERS: ADMIT Family Medicine; ATTEND Family Medicine
DX: R11.10 Vomiting, unspecified (principal); E87.6 Hypokalemia; E86.0 Dehydration; F10.27 Alcohol dependence with alcohol-induced persisting dementia; R94.31 Abnormal electrocardiogram [ECG] [EKG]; I11.9 Hypertensive heart disease without heart failure; K85.90 Acute pancreatitis without necrosis or infection, unspecified; K21.9 Gastro-esophageal reflux disease without esophagitis; J44.9 Chronic obstructive pulmonary disease, unspecified; F32.9 Major depressive disorder, single episode, unspecified; F41.9 Anxiety disorder, unspecified; F17.210 Nicotine dependence, cigarettes, uncomplicated
CPT/HCPCS: 71046; 80053; 82550; 83690; 84484; 85025; 93005; 96361; 96374; 96375; 97163; 99285; G0378; G8987; G8988; J1885; J2060; J2405; J2765; J3480

== ENCOUNTER 2017-10-01 12:06 | Inpatient (IN) | payer SELFPAY ==
[~2017-10-01] VITALS: Ht 177.8 cm; Wt 66.9 kg
[2017-10-01] VITALS (9 sets, daily range): BP systolic 97–133; BP diastolic 65–82; PULSE 60–114; RESP 16–36; TEMP 97.5–98.4; O2SAT 96–100
--- NOTE | 2017-10-01 12:19 | PD ---
HPI Chief Complaint: ENT Complaint Time Seen by Provider: 12:19 Travel History International Travel<30 days: No Contact w/Intl Traveler<30days: No Traveled to known affect area: No History of Present Illness HPI 57-year-old male came to the emergency room with history of dizziness, nausea, vomiting and near syncopal episode every time he stands up. Patient says this has been going on for past 3 days. Patient was in the emergency room 1 month ago for similar symptoms. At that time there was a chest x-ray done and patient was eventually discharged home. Patient says that his symptoms then slowly started to get better and then started again 3 days ago. This time he feels like he is going to pass out every time he stands up. He has been unable to hold any food or liquid down. Patient is an alcoholic and currently is drinking 6-8 beers every day. He has been drinking for many years at this point. However he has not drank in past 3 days given his condition. He denies any withdrawal symptoms although he does look a little shaky. As patient was talking to me he was holding an emesis bag and dry heaving intermittently. Patient denies of any pain anywhere. He does describe some clock sensation in his right ear. No hearing problems or tinnitus. Patient does not have a primary care physician and does not take any prescribed medications. [facility] Past Medical History Narrative Medical List of his past medical, surgical, social and family history is reviewed from the nursing note. Arthritis: No Asthma: Yes Blood Disorders: No Anxiety: Yes Depression: Yes Heart Rhythm Problems: No Cancer: No Cardiovascular Problems: Yes (htn, chest pain,) High Cholesterol: No Chemotherapy: No Chest Pain: Yes Congestive Heart Failure: No COPD: Yes Cerebrovascular Accident: No Diabetes: No Diminished Hearing: No Endocrine: No Gastrointestinal Disorders: Yes (diarrhea) GERD: Yes Genitourinary: No Headaches: No Hepatitis: No Hiatal Hernia: No Hypertension: Yes Immune Disorder: No Musculoskeletal: Yes (tightness in chest) Neurologic: Yes Psychiatric: Yes Reproductive: No Respiratory: Yes Immunizations Current: No Migraines: No Myocardial Infarction: No Pancreatitis: Yes Radiation Therapy: No Seizures: No Sleep Apnea: No Thyroid Disease: No Ulcer: No Past Surgical History Abdominal Surgery: No Appendectomy: No Cardiac Surgery: No Cholecystectomy: No Ear Surgery: No Endocrine Surgery: No Eye Surgery: Yes (rt eye laser rema 1999) Genitourinary Surgery: No Gynecologic Surgery: No Oral Surgery: Yes (top implanted front dentures) Thoracic Surgery: No Other Surgery: Yes (eft wrist and left ankle) Social History Alcohol Use: Yes Tobacco Use: Yes (1 PPD) Substance Use: No Allergies-Medications (Allergen,Severity, Reaction): Coded Allergies: No Known Allergies (Verified Allergy, Unknown, 10/01/17) Comments No known drug allergy Reported Meds & Prescriptions Reported Meds & Active Scripts Active Gnp Vitamin B-1 (Thiamine HCl) 100 Mg Tab 100 Mg PO DAILY Folic Acid 1 Mg Tablet 1 Mg PO DAILY Potassium Chloride Microencaps 20 Meq Tab 20 Meq PO BID Narrative Medication List of his home medications reviewed from the nursing note. Review of Systems Except as stated in HPI: all other systems reviewed are Neg Gastrointestinal: Positive: Nausea, Vomiting Neurologic: Positive: Dizziness Physical Exam Narrative GENERAL: Awake, alert, anxious, significant distress SKIN: Focused skin assessment warm/dry. HEAD: Atraumatic. Normocephalic. EYES: Pupils equal and round. No scleral icterus. No injection or drainage. ENT: No nasal bleeding or discharge. Tongue is dry and coated NECK: Trachea midline. No JVD. CARDIOVASCULAR: Regular rate and rhythm. No murmur appreciated. RESPIRATORY: No accessory muscle use. Clear to auscultation. Breath sounds equal bilaterally. GASTROINTESTINAL: Abdomen soft, non-tender, nondistended. Hepatic and splenic margins not palpable. MUSCULOSKELETAL: No obvious deformities. No clubbing. No cyanosis. No edema. NEUROLOGICAL: Awake and alert. No obvious cranial nerve deficits. Motor grossly within normal limits. Normal speech. Right upper and lower extremity ataxia on finger-nose test and heel and ramos test PSYCHIATRIC: Appropriate mood and affect; insight and judgment normal. Data Data Last Documented VS Vital Signs Date Time Temp Pulse Resp B/P (MAP) Pulse Ox O2 Delivery O2 Flow Rate FiO2 10/01/17 14:20 94 18 10/01/17 12:56 97/65 (76) 99/75 (83) 10/01/17 12:49 97 Room Air 10/01/17 12:14 98.2 Orders Orders Electrocardiogram (10/01/17 12:37) Complete Blood Count With Diff (10/01/17 12:37) Basic Metabolic Panel (Bmp) (10/01/17 12:37) Troponin I (10/01/17 12:37) Urinalysis - C+S If Indicated (10/01/17 12:37) Ct Brain W/O Iv Contrast(Rout) (10/01/17 12:37) Ecg Monitoring (10/01/17 12:37) Iv Access Insert/Monitor (10/01/17 12:37) Oximetry (10/01/17 12:37) Ondansetron Inj (Zofran Inj) (10/01/17 12:45) Sodium Chloride 0.9% Flush (Ns Flush) (10/01/17 12:45) Orthostatic Vital Signs (10/01/17 12:37) Meclizine (Antivert) (10/01/17 12:45) Sodium Chlor 0.9% 1000 Ml Inj (Ns 1000 M (10/01/17 13:00) Sodium Chlor 0.9% 1000 Ml Inj (Ns 1000 M (10/01/17 13:00) Hepatic Functional Panel (10/01/17 13:00) Alcohol (Ethanol) (10/01/17 13:00) Thiamine Inj (Thiamine Inj) (10/01/17 13:15) Ct Abd/Pel W Iv Contrast(Rout) (10/01/17 ) Magnesium (Mg) (10/01/17 14:21) Potassium Chloride (Kcl) (10/01/17 14:30) Potassium Chlor 10 Meq Premix (Kcl 10 Me (10/01/17 14:30) Lactic Acid (10/01/17 14:32) Beta Hydroxybutyrate (Acetone) (10/01/17 14:32) Magnesium Sulfate 1 Gm Premix (Magnesium (10/01/17 14:45) Iohexol 350 Inj (Omnipaque 350 Inj) (10/01/17 14:57) Place In Observation (10/01/17 ) Vital Signs (Adult) Q4H (10/01/17 15:37) Neuro Checks Q4H (10/01/17 15:37) Activity Bed Rest With Brp (10/01/17 15:37) Performing Artist / Telemetry .CONTINUOUS (10/01/17 15:37) Diet Regular Basic (10/01/17 Dinner) Sodium Chlor 0.9% 1000 Ml Inj (Ns 1000 M (10/01/17 16:00) Sodium Chloride 0.9% Flush (Ns Flush) (10/01/17 15:45) Sodium Chloride 0.9% Flush (Ns Flush) (10/01/17 21:00) Ondansetron Inj (Zofran Inj) (10/01/17 16:00) Basic Metabolic Panel (Bmp) (10/02/17 06:00) Complete Blood Count With Diff (10/02/17 06:00) Naloxone Inj (Narcan Inj) (10/01/17 15:45) Magnesium Hydroxide Liq (Milk Of Magnesi (10/01/17 16:00) Promethazine (Phenergan) (10/01/17 16:00) Lipase (10/01/17 15:37) Admit Order (Ed Use Only) (10/01/17 15:38) Labs Laboratory Tests Test 10/01/17 13:10 10/01/17 14:35 10/01/17 15:11 10/01/17 15:22 White Blood Count 15.1 TH/MM3 Red Blood Count 4.37 MIL/MM3 Hemoglobin 9.4 GM/DL Hematocrit 30.8 % Mean Corpuscular Volume 70.4 FL Mean Corpuscular Hemoglobin 21.5 PG Mean Corpuscular Hemoglobin Concent 30.6 % Red Cell Distribution Width 21.3 % Platelet Count 490 TH/MM3 Mean Platelet Volume 7.2 FL Neutrophils (%) (Auto) 93.6 % Lymphocytes (%) (Auto) 3.1 % Monocytes (%) (Auto) 2.5 % Eosinophils (%) (Auto) 0.0 % Basophils (%) (Auto) 0.8 % Neutrophils # (Auto) 14.1 TH/MM3 Lymphocytes # (Auto) 0.5 TH/MM3 Monocytes # (Auto) 0.4 TH/MM3 Eosinophils # (Auto) 0.0 TH/MM3 Basophils # (Auto) 0.1 TH/MM3 CBC Comment AUTO DIFF Differential Comment AUTO DIFF CONFIRMED Target Cells 1+ Ovalocytes 1+ Keratocytes OCC Blood Urea Nitrogen 6 MG/DL Creatinine 1.20 MG/DL Random Glucose 124 MG/DL Calcium Level 8.2 MG/DL Sodium Level 126 MEQ/L Potassium Level 2.2 MEQ/L Chloride Level 81 MEQ/L Carbon Dioxide Level 27.6 MEQ/L Anion Gap 17 MEQ/L Estimat Glomerular Filtration Rate 62 ML/MIN Magnesium Level 1.0 MG/DL Total Bilirubin 2.2 MG/DL Direct Bilirubin 0.8 MG/DL Indirect Bilirubin 1.4 MG/DL Aspartate Amino Transf (AST/SGOT) 85 U/L Alanine Aminotransferase (ALT/SGPT) 50 U/L Alkaline Phosphatase 134 U/L Troponin I LESS THAN 0.02 NG/ML Total Protein 7.4 GM/DL Albumin 3.0 GM/DL Ethyl Alcohol Level LESS THAN 3 MG/DL Urine Collection Type CATH Urine Color YELLOW Urine Turbidity CLEAR Urine pH 6.5 Urine Specific [place] 1.015 Urine Protein TRACE mg/dL Urine Glucose (UA) NEG mg/dL Urine Ketones NEG mg/dL Urine Occult Blood NEG Urine Nitrite NEG Urine Bilirubin NEG Urine Urobilinogen 1.0 MG/DL Urine Leukocyte Esterase NEG Urine RBC 0-3 /hpf Urine WBC 0-2 /hpf Urine Squamous Epithelial Cells 0-5 /hpf Urine Renal Epithelial Cells 0-5 /hpf Urine Hyaline Casts 15-19 /lpf Microscopic Urinalysis Comment CATH-CULT NOT IND Urine Collection Time 14:35 Lipase 376 U/L B-Hydroxybutyrate 0.10 MMOL/L Lactic Acid Level 7.8 mmol/L [facility] Medical Decision Making Medical Screen Exam Complete: Yes Emergency Medical Condition: Yes Medical Record Reviewed: Yes Interpretation(s) Twelve-lead EKG was reviewed by me. Normal sinus rhythm, normal axis, right bundle branch block, frequent polymorphic PVCs. Heart rate of 94 bpm. Differential Diagnosis Dehydration, electrolyte abnormality, orthostatic hypotension, intracranial mass , intra-abdominal tumor, alcohol withdrawal syndrome Narrative Course 2:29 PM blood test results are back. Patient has some leukocytosis with left shift. Chemistry is remarkable for severe hypokalemia and hyponatremia. He has increased anion gap metabolic acidosis. Liver function tests are abnormally high. Currently waiting for head CT and CT abdomen and pelvis. Patient was significantly positive orthostatic. I have ordered 2 L of IV fluid bolus. I have ordered for potassium replacement both p.o. and IV. Patient will need to be admitted. Once the CAT scan is done the hospitalist will be called. 4:23 PM patient's lactic acid level just came back and is significantly elevated. I will order 1/3 L of IV fluid bolus and antibiotics as per the protocol. I am unsure of the origin of the lactic acidosis at this point. Critical Care Narrative Aggregate critical care time was 45 minutes. Time to perform other separately billable procedures was not included in the critical care time. My time did not include minutes spent treating any other patients simultaneously or on activities that did not directly contribute to the patient's treatment. The services I provided to this patient were to treat and/or prevent clinically significant deterioration that could result in: Severe dehydration, severe hypokalemia, hypomagnesemia, hyponatremia I provided critical care services requiring my management, as noted below: Chart data review, documentation time, medication orders and management, vital sign assessments/reviewing monitor data, ordering and reviewing lab tests, ordering and interpreting/reviewing x-rays and diagnostic studies, care of the patient and discussion of the patient with the admitting physicians. Procedures EKG Prior to Arrival: No Diagnosis Primary Impression: Intractable vomiting Qualified Codes: R11.2 - Nausea with vomiting, unspecified Additional Impressions: Hypokalemia Dehydration Hypomagnesemia Hyponatremia Possible alcohol withdrawal Lactic acidosis Admitting Information Admitting Physician Requests: Admit Emmie Bianchi MD Oct 01, 2017 12:19
[2017-10-01] MEDS ORDERED: ONDANSETRON HCL 4 MG/2 ML VIAL IVP ONE (12:45)
[2017-10-01] MEDS ORDERED: MECLIZINE HCL 25 MG TAB PO ONE (12:45)
[2017-10-01] MEDS ORDERED: SODIUM CHLORIDE 0.9% FLUSH 10 ML FLUSH IVF PRN (12:45)
[2017-10-01] MEDS ORDERED: SODIUM CHLOR 0.9% 1000 ML INJ 1,000 ML IV ONE ×3 (13:00→23:00)
[2017-10-01] MEDS ORDERED: THIAMINE HCL 200 MG/2 ML VIAL IM ONE (13:15)
[2017-10-01 13:23] LABS: AUTOMATED NEUTROPHIL # 14.1 TH/MM3 (1.8-7.7); BASOPHIL # 0.1 TH/MM3 (0-0.2); BASOPHIL % 0.8 % (0.0-2.0); HEMATOCRIT 30.8 % (39.0-51.0); HEMOGLOBIN 9.4 GM/DL (13.0-17.0); LYMPH % 3.1 % (9.0-44.0); LYMPHOCYTE # 0.5 TH/MM3 (1.0-4.8); MEAN CELL VOLUME 70.4 FL (80.0-100.0); MEAN CORPUSCULAR HEMOGLOBIN 21.5 PG (27.0-34.0); MEAN CORPUSCULAR HGB CONC 30.6 % (32.0-36.0); MEAN PLATELET VOLUME 7.2 FL (7.0-11.0); MONO % 2.5 % (0.0-8.0); MONOCYTE # 0.4 TH/MM3 (0-0.9); NEUT % 93.6 % (16.0-70.0); PLATELET COUNT 490 TH/MM3 (150-450); RED BLOOD COUNT 4.37 MIL/MM3 (4.50-5.90); RED CELL DISTRIBUTION WIDTH 21.3 % (11.6-17.2); WHITE BLOOD COUNT 15.1 TH/MM3 (4.0-11.0)
[2017-10-01 13:38] LABS: KERATOCYTES OCC (NORMAL); OVALOCYTES 1+ (NORMAL); TARGET CELLS 1+ (NORMAL)
[2017-10-01 13:50] LABS: DIRECT BILIRUBIN ADULT 0.8 MG/DL (0.0-0.2)
[2017-10-01 13:51] LABS: ALT (GPT) 50 U/L (12-78); AST (GOT) 85 U/L (15-37)
[2017-10-01 13:52] LABS: INDIRECT BILIRUBIN 1.4 MG/DL (0.0-0.8); TOTAL BILIRUBIN ADULT 2.2 MG/DL (0.2-1.0)
[2017-10-01 13:53] LABS: TOTAL PROTEIN 7.4 GM/DL (6.4-8.2)
[2017-10-01 13:54] LABS: ALKALINE PHOSPHATASE 134 U/L (45-117)
[2017-10-01 14:01] LABS: BICARBONATE 27.6 MEQ/L (21.0-32.0); BLOOD UREA NITROGEN 6 MG/DL (7-18); CALCIUM 8.2 MG/DL (8.5-10.1); CHLORIDE 81 MEQ/L (98-107); GLOMERULAR FILTRATION RATE 62 ML/MIN (>89); GLUCOSE,RANDOM 124 MG/DL (74-106); SODIUM (NA) 126 MEQ/L (136-145); TROPONIN I LESS THAN 0.02 NG/ML (0.02-0.05)
[2017-10-01] MEDS ORDERED: POTASSIUM CHLORIDE 20 MEQ CONTROLLED RELEASE TAB PO ONE (14:30)
[2017-10-01 14:43] LABS: BILIRUBIN, URINE NEG (NEG); BLOOD, URINE NEG (NEG); GLUCOSE,URINE NEG (NEG); KETONE, URINE NEG (NEG); NITRITE,URINE NEG (NEG); PH, URINE 6.5 (5.0-8.5); URINE COLOR YELLOW (YELLW/STRAW); URINE LEUKOCYTE ESTERASE NEG (NEG)
[2017-10-01 14:57] LABS: HYALINE CAST, URINE 15-19 /lpf (RARE); WBC, URINE 0-2 /hpf (0-5)
[2017-10-01] MEDS ORDERED: IOHEXOL 350 MG/ML 10 ML VIAL (for RAD DIAG) IVCONTRAST ONE (14:57)
[2017-10-01 14:58] LABS: RBC, URINE 0-3 /hpf (0-3); RENAL EPITHELIAL CELLS 0-5 /hpf; SQUAMOUS EPITHELIAL CELL URINE 0-5 /hpf (0-5)
--- NOTE | 2017-10-01 15:04 | RADRPT ---
EXAM DATE/TIME: 10/01/2017 14:40 [facility] COMPARISON: CT BRAIN W/O CONTRAST, May 02, 2017, 19:48. INDICATIONS : Dizziness and weakness. Evaluate for cerebrovascular disease. RADIATION DOSE: 62.90 CTDIvol (mGy) MEDICAL HISTORY : Chronic obstructive pulmonary disease. Gastroesophageal reflux disease. Hypertension.Asthma. SURGICAL HISTORY : None. ENCOUNTER: Initial ACUITY: 1 day PAIN SCALE: 0/10 LOCATION: cranial TECHNIQUE: Multiple contiguous axial images were obtained of the head. Using automated exposure control and adj ustment of the mA and/or kV according to patient size, radiation dose was kept as low as reasonably a chievable to obtain optimal diagnostic quality images. DICOM format image data is available electro nically for review and comparison. FINDINGS: CEREBRUM: The ventricles are normal for age. No evidence of midline shift, mass lesion, hemorrhage or acute in farction. No extra-axial fluid collections are seen. POSTERIOR FOSSA: The cerebellum and brainstem are intact. The 4th ventricle is midline. The cerebellopontine angle i s unremarkable. Stable punctate calcification in the right paracentral carmen. EXTRACRANIAL: The visualized portion of the orbits is intact. SKULL: The calvaria is intact. No evidence of skull fracture. CONCLUSION: 1. Negative noncontrast CT brain. Dennys Rivas MD on October 01, 2017 at 15:01 Board Certified Radiologist. This report was verified electronically.
[2017-10-01] MEDS: POTASSIUM CHLOR 10 MEQ PREMIX 100 ML IV SCH ×3 (15:39→18:30)
[2017-10-01] MEDS ORDERED: SODIUM CHLORIDE 0.9% FLUSH 10 ML FLUSH IV FLUSH PRN (15:45)
[2017-10-01] MEDS ORDERED: NALOXONE HCL 0.4 MG/ML AMP IV PUSH PRN (15:45)
[2017-10-01] MEDS ORDERED: PROMETHAZINE HCL 25 MG TAB PO PRN (16:00)
[2017-10-01] MEDS ORDERED: MAGNESIUM HYDROXIDE SUSP 30 ML CUP PO PRN (16:00)
[2017-10-01] MEDS ORDERED: ONDANSETRON HCL 4 MG/2 ML VIAL IVP PRN (16:00)
[2017-10-01] MEDS ORDERED: LORazepam 1 MG TAB PO PRN (16:15)
[2017-10-01] MEDS ORDERED: LORazepam 2 MG/ML VIAL IV PUSH PRN ×4 (16:15)
--- NOTE | 2017-10-01 16:18 | HHI.HP ---
[facility] Service [facility] Primary Care Physician No Primary Care Physician Admission Diagnosis Severe dehydration, severe hypokalemia, vomiting Diagnoses: (1) Intractable vomiting (2) Hyponatremia (3) Hypomagnesemia (4) Dehydration (5) Hypokalemia (6) Alcoholism Chief Complaint: Dizziness, nausea and vomiting and syncopal episode Travel History International Travel<30 Days: No Contact w/Intl Traveler <30 Da: No Traveled to Known Affected Are: No History of Present Illness This is a 57-year-old male patient with a known medical history of alcoholism, hypertension, COPD and pancreatitis who presented to the ED with complaints of worsening dizziness, nausea and vomiting, generalized weakness and near syncopal episode at home. Patient states for the last 3 days he has been feeling increasingly worse with subjective fever and chills, nausea and vomiting , and inability to tolerate anything by mouth. Patient also states that every time he stands up he feels dizzy and "like he is going to pass out". Denies any loss of consciousness or hitting his head. He does admit to drinking 6-8 beers every day since his teen years. Last drink was 3 days ago due to inability to tolerate anything by mouth. Patient did complain of right ear pain which has not resolved since presentation. Denies any tendinitis or lack of hearing. Patient does not have a PCP. Does not take any prescribed medications. Patient presented with white blood cell 15.1, potassium 2.2, sodium 126, magnesium 1.0 and total bilirubin 2.2. Anemia was noted with hemoglobin 9.4/hematocrit 30.8. Patient denies any hematozemia or black stools. Denies any recent diarrhea. Head CT negative. Abdominal CT performed in ED with pending results. Review of Systems Constitutional: COMPLAINS OF: Diaphoretic episodes, Fatigue, Fever, Chills Eyes: DENIES: Blurred vision, Diplopia Respiratory: DENIES: Cough, Sputum production, Shortness of breath Cardiovascular: DENIES: Chest pain Gastrointestinal: COMPLAINS OF: Abdominal pain, Nausea, Vomiting, DENIES: Black stools, Bloody stools, Constipation, Diarrhea Musculoskeletal: DENIES: Joint pain, Muscle aches Hematologic/lymphatic: DENIES: Bruising Psychiatric: DENIES: Anxiety Except as stated in HPI: all other systems reviewed are Neg Past Family Social History Past Medical History Chronic alcoholism Anxiety Chronic affective pulmonary disease Gastroesophageal reflux History of pancreatitis History of hypertension Past Surgical History Left wrist surgery Right eye laser surgery Oral surgery for implanted dentures Reported Medications Active Gnp Vitamin B-1 (Thiamine HCl) 100 Mg Tab 100 Mg PO DAILY Folic Acid 1 Mg Tablet 1 Mg PO DAILY Potassium Chloride Microencaps 20 Meq Tab 20 Meq PO BID Allergies: Coded Allergies: No Known Allergies (Verified Allergy, Unknown, 10/01/17) Active Ordered Medications Current Medications Medications (Trade) Dose Ordered Sig/Tiffanie Route Start Time Stop Time Status Last Admin (NS Flush) 2 ml UNSCH PRN IVF 10/01/17 12:45 Potassium Chloride 100 ml @ 100 mls/hr Q1H IV 10/01/17 14:30 10/01/17 17:29 10/01/17 15:39 Magnesium Sulfate/ Dextrose 100 ml @ 100 mls/hr Q1H IV 10/01/17 14:45 10/01/17 16:44 Sodium Chloride 1,000 ml @ 100 mls/hr Q10H IV 10/01/17 16:00 (NS Flush) 2 ml UNSCH PRN IV FLUSH 10/01/17 15:45 (NS Flush) 2 ml BID IV FLUSH 10/01/17 21:00 (Zofran Inj) 4 mg Q6H PRN IVP 10/01/17 16:00 (Narcan Inj) 0.4 mg UNSCH PRN IV PUSH 10/01/17 15:45 (Milk Of Magnesia Liq) 30 ml Q12H PRN PO 10/01/17 16:00 (Phenergan) 25 mg Q6H PRN PO 10/01/17 16:00 Family History Reviewed is significant for father having myocardial infarction at age 59. Social History Patient smokes 1 pack a cigarettes a day since he was 15 years old. He drinks 5 -6 beers a day. He does have withdrawal symptoms if he does not drink. Denies any illicit drugs. Physical Exam Vital Signs Vital Signs Date Time Temp Pulse Resp B/P (MAP) Pulse Ox O2 Delivery O2 Flow Rate FiO2 10/01/17 15:49 88 16 104/66 (79) 100 Room Air 10/01/17 14:20 94 18 10/01/17 12:56 82 18 97/65 (76) 110 18 99/75 (83) 10/01/17 12:49 114 18 99/75 (83) 97 Room Air 10/01/17 12:30 102 18 10/01/17 12:14 98.2 60 18 114/76 (89) 100 Physical Exam GENERAL: Well-developed, thin appearing male patient in NAD. SKIN: Warm and dry. No rash. HEAD: Normocephalic. Atraumatic. EYES: Pupils equal and round. No scleral icterus. No injection or drainage. ENT: No nasal bleeding or discharge. Mucous membranes pink and moist. NECK: Supple. Trachea midline. CARDIOVASCULAR: Regular rate and rhythm. S1, S2 noted. No murmur appreciated. RESPIRATORY: No accessory muscle use. Clear to auscultation. Breath sounds equal bilaterally. GASTROINTESTINAL: Abdomen soft, non-tender, nondistended. Normoactive bowel sounds x4. MUSCULOSKELETAL: No obvious deformities. Extremities without clubbing, cyanosis , or edema. NEUROLOGICAL: Awake and alert. No obvious cranial nerve deficits. Motor grossly within normal limits. 5/5 muscle strength in bilateral upper and lower extremities. Normal speech. PSYCHIATRIC: Appropriate mood and affect; insight and judgment normal. Laboratory Laboratory Tests Test 10/01/17 13:10 10/01/17 14:35 10/01/17 15:11 10/01/17 15:22 White Blood Count 15.1 Red Blood Count 4.37 Hemoglobin 9.4 Hematocrit 30.8 Mean Corpuscular Volume 70.4 Mean Corpuscular Hemoglobin 21.5 Mean Corpuscular Hemoglobin Concent 30.6 Red Cell Distribution Width 21.3 Platelet Count 490 Mean Platelet Volume 7.2 Neutrophils (%) (Auto) 93.6 Lymphocytes (%) (Auto) 3.1 Monocytes (%) (Auto) 2.5 Eosinophils (%) (Auto) 0.0 Basophils (%) (Auto) 0.8 Neutrophils # (Auto) 14.1 Lymphocytes # (Auto) 0.5 Monocytes # (Auto) 0.4 Eosinophils # (Auto) 0.0 Basophils # (Auto) 0.1 CBC Comment AUTO DIFF Differential Comment AUTO DIFF CONFIRMED Target Cells 1+ Ovalocytes 1+ Keratocytes OCC Blood Urea Nitrogen 6 Creatinine 1.20 Random Glucose 124 Calcium Level 8.2 Sodium Level 126 Potassium Level 2.2 Chloride Level 81 Carbon Dioxide Level 27.6 Anion Gap 17 Estimat Glomerular Filtration Rate 62 Magnesium Level 1.0 Total Bilirubin 2.2 Direct Bilirubin 0.8 Indirect Bilirubin 1.4 Aspartate Amino Transf (AST/SGOT) 85 Alanine Aminotransferase (ALT/SGPT) 50 Alkaline Phosphatase 134 Troponin I LESS THAN 0.02 Total Protein 7.4 Albumin 3.0 Ethyl Alcohol Level LESS THAN 3 Urine Collection Type CATH Urine Color YELLOW Urine Turbidity CLEAR Urine pH 6.5 Urine Specific Wendel 1.015 Urine Protein TRACE Urine Glucose (UA) NEG Urine Ketones NEG Urine Occult Blood NEG Urine Nitrite NEG Urine Bilirubin NEG Urine Urobilinogen 1.0 Urine Leukocyte Esterase NEG Urine RBC 0-3 Urine WBC 0-2 Urine Squamous Epithelial Cells 0-5 Urine Renal Epithelial Cells 0-5 Urine Hyaline Casts 15-19 Microscopic Urinalysis Comment CATH-CULT NOT IND Urine Collection Time 14:35 B-Hydroxybutyrate 0.10 Result Diagram: 10/01/17 1310 10/01/17 1310 Imaging Last Impressions Head CT 10/01/17 1237 Signed Impressions: Service Date/Time: Sunday, October 01, 2017 14:40 - CONCLUSION: 1. Negative noncontrast CT brain. Dennys Rivas MD Septic Shock Reassessment Septic shock perfusion: reassessment completed Caprini VTE Risk Assessment Caprini VTE Risk Assessment: No/Low Risk (score <= 1) Caprini Risk Assessment Model Point Value = 1 Point Value = 2 Point Value = 3 Point Value = 5 Age 41-60 Minor surgery BMI > 25 kg/m2 Swollen legs Varicose veins or History of unexplained or recurrent spontaneous Oral contraceptives or hormone replacement Sepsis (< 1 month) Serious lung disease, including pneumonia (< 1 month) Abnormal pulmonary function Acute myocardial infarction Congestive heart failure (< 1 month) History of inflammatory bowel disease Medical patient at bed rest Age 61-74 Arthroscopic surgery Major open surgery (> 45 min) Laparoscopic surgery (> 45 min) Malignancy Confined to bed (> 72 hours) Immobilizing plaster cast Central venous access Age >= 75 History of VTE Family history of VTE Factor V Leiden Prothrombin [id number] Lupus anticoagulant Anticardiolipin antibodies Elevated serum homocysteine Heparin-induced thrombocytopenia Other congenital or acquired thrombophilia Stroke (< 1 month) Elective arthroplasty Hip, pelvis, or leg fracture Acute spinal cord injury (< 1 month) Prophylaxis Regimen Total Risk Factor Score Risk Level Prophylaxis Regimen 0-1 Low Early ambulation 2 Moderate Order ONE of the following: *Sequential Compression Device (SCD) *Heparin 5000 units SQ BID 3-4 Higher Order ONE of the following medications: *Heparin 5000 units SQ TID *Enoxaparin/Lovenox 40 mg SQ daily (WT < 150 kg, CrCl > 30 mL/min) *Enoxaparin/Lovenox 30 mg SQ daily (WT < 150 kg, CrCl > 10-29 mL/min) *Enoxaparin/Lovenox 30 mg SQ BID (WT < 150 kg, CrCl > 30 mL/min) AND/OR *Sequential Compression Device (SCD) 5 or more Highest Order ONE of the following medications: *Heparin 5000 units SQ TID (Preferred with Epidurals) *Enoxaparin/Lovenox 40 mg SQ daily (WT < 150 kg, CrCl > 30 mL/min) *Enoxaparin/Lovenox 30 mg SQ daily (WT < 150 kg, CrCl > 10-29 mL/min) *Enoxaparin/Lovenox 30 mg SQ BID (WT < 150 kg, CrCl > 30 mL/min) AND *Sequential Compression Device (SCD) Assessment and Plan Problem List: (1) Intractable vomiting ICD Code: R11.10 - Vomiting, unspecified Status: Acute (2) Hyponatremia ICD Code: E87.1 - Hypo-osmolality and hyponatremia Status: Acute (3) Hypomagnesemia ICD Code: E83.42 - Hypomagnesemia Status: Acute (4) Hypokalemia ICD Code: E87.6 - Hypokalemia (5) Dehydration ICD Code: E86.0 - Dehydration Status: Acute (6) Alcoholism ICD Code: F10.20 - Alcohol dependence, uncomplicated Assessment and Plan 57-year-old alcoholic who presented with intractable emesis, subjective fever and chills, dizziness and near syncopal episode at home. Intractable emesis, lightheadedness and dizziness suspect secondary to chronic alcoholism versus dehydration - Head CT reviewed, negative. - Continue IV fluids. Will check orthostatics. Transaminase Chronic alcoholism History of acute pancreatitis - Lipase level 376, no acute pancreatitis. - Abdominal CT showing steatosis of the liver. Possible wall thickening and a 6 cm segment of mid sigmoid colon without bowel distention. Cannot exclude colonic lesion. - GI consulted for CT findings and possible colonoscopy. Appreciate further input and recommendations. - Continue IV fluids, ensure hydration. Hypokalemia Hypomagnesium Hyponatremia - All suspect secondary to nausea and vomiting versus alcoholism versus poor p.o. intake - Patient given 2 L NS bolus in ED. Continue maintenance IV fluid. - Will replace electrolytes. Continue to follow BMP. Alcoholism - No signs of alcohol withdrawal. Patient on CIWA protocol. Placed on multivitamin, folic acid and thiamine. Seizure precautions. - Education given about alcoholic cessation. DVT prophylaxis: SCDs. Problem Qualifiers (1) Intractable vomiting: Qualified Codes: R11.2 - Nausea with vomiting, unspecified Maria Alejandra Forman Oct 01, 2017 16:18
--- NOTE | 2017-10-01 16:18 | RADRPT ---
EXAM DATE/TIME: 10/01/2017 14:44 [place] COMPARISON: No previous studies available for comparison. INDICATIONS : Lower abdominal pain. Vomiting. Weakness. IV CONTRAST: 85 cc Omnipaque 350 (iohexol) IV ORAL CONTRAST: No oral contrast ingested. RADIATION DOSE: 6.31 CTDIvol (mGy) MEDICAL HISTORY : Chronic obstructive pulmonary disease. Gastroesophageal reflux disease. Hypertension.Asthma. SURGICAL HISTORY : None. ENCOUNTER: Initial ACUITY: 1 day PAIN SCALE: 5/10 LOCATION: Bilateral lower quadrant TECHNIQUE: Volumetric scanning of the abdomen and pelvis was performed. Using automated exposure control and ad justment of the mA and/or kV according to patient size, radiation dose was kept as low as reasonably achievable to obtain optimal diagnostic quality images. DICOM format image data is available electro nically for review and comparison. FINDINGS: LOWER LUNGS: The visualized lower lungs are clear. LIVER: Prominent decreased attenuation throughout the liver characteristic of diffuse fatty change.. There is no dilation of the biliary tree. No calcified gallstones. SPLEEN: Normal size without lesion. PANCREAS: Within normal limits. KIDNEYS: Normal in size and shape. There is no mass, stone or hydronephrosis. ADRENAL GLANDS: Within normal limits. VASCULAR: There is no aortic aneurysm. BOWEL/MESENTERY: No dilated loops of small or large bowel. No evidence of free fluid in the pelvis. The examination is performed without oral contrast; there is a change in the luminal dimension of the mid sigmoid col on which is of uncertain significance given the lack of distention. Cannot exclude an intraluminal l esion in segment measuring 6 cm in length. ABDOMINAL WALL: Within normal limits. RETROPERITONEUM: There is no lymphadenopathy. BLADDER: No wall thickening or mass. REPRODUCTIVE: Within normal limits. INGUINAL: There is no lymphadenopathy or hernia. MUSCULOSKELETAL: Within normal limits for patient age. CONCLUSION: 1. Steatosis the liver. 2. Possible wall thickening and a 6 cm segment of mid sigmoid colon without bowel distention; this is incompletely evaluated. Cannot exclude colonic lesion. If the patient has had not had a recent col onoscopy, may consider such. Dennys Rivas MD on October 01, 2017 at 16:12 Board Certified Radiologist. This report was verified electronically.
[2017-10-01] MEDS: MAGNESIUM SULFATE 1 GM PREMIX 100 ML IV SCH ×2 (16:57→18:30)
[2017-10-01] MEDS ORDERED: FLUMAZENIL 0.5 MG/5 ML VIAL IV PUSH PRN (17:00)
[2017-10-01] MEDS: SODIUM CHLOR 0.9% 1000 ML INJ 1,000 ML IV SCH (17:07)
[2017-10-01 18:49] LABS: LACTIC ACID SEPSIS PROTOCOL 3.8 mmol/L (0.4-2.0)
[2017-10-01] MEDS: MULTIVITAMIN INJ 10 ML, FOLIC ACID INJ 1 MG in SODIUM CHLORID 0.9% 500 ML INJ 500 ML IV SCH (20:17)
[2017-10-01] MEDS: THIAMINE INJ 100 MG in SODIUM CHLORIDE 0.9% INJ 100 ML IV SCH (20:17)
[2017-10-01] MEDS: SODIUM CHLORIDE 0.9% FLUSH 10 ML FLUSH IV FLUSH SCH (21:00)
[2017-10-01] MEDS ORDERED: MORPHINE SULFATE 4 MG/ML INJ IV PUSH ONE (23:00)
[2017-10-02] VITALS (17 sets, daily range): BP systolic 87–125; BP diastolic 59–81; PULSE 70–114; RESP 12–34; TEMP 95.5–98.5; O2SAT 95–100
[2017-10-02] MEDS: SODIUM CHLOR 0.9% 1000 ML INJ 1,000 ML IV SCH ×3 (02:00→22:35)
[2017-10-02 04:51] LABS: AUTOMATED NEUTROPHIL # 8.6 TH/MM3 (1.8-7.7); BASOPHIL # 0.2 TH/MM3 (0-0.2); BASOPHIL % 1.7 % (0.0-2.0); EOSINOPHIL # 0.2 TH/MM3 (0-0.4); EOSINOPHIL % 1.5 % (0.0-4.0); HEMATOCRIT 23.1 % (39.0-51.0); LYMPH % 13.1 % (9.0-44.0); LYMPHOCYTE # 1.5 TH/MM3 (1.0-4.8); MEAN CORPUSCULAR HEMOGLOBIN 21.6 PG (27.0-34.0); MEAN CORPUSCULAR HGB CONC 30.5 % (32.0-36.0); MEAN PLATELET VOLUME 7.1 FL (7.0-11.0); MONO % 6.2 % (0.0-8.0); MONOCYTE # 0.7 TH/MM3 (0-0.9); NEUT % 77.5 % (16.0-70.0); PLATELET COUNT 350 TH/MM3 (150-450); RED BLOOD COUNT 3.25 MIL/MM3 (4.50-5.90); RED CELL DISTRIBUTION WIDTH 21.5 % (11.6-17.2); WHITE BLOOD COUNT 11.3 TH/MM3 (4.0-11.0)
[2017-10-02 05:08] LABS: BICARBONATE 29.9 MEQ/L (21.0-32.0)
[2017-10-02 05:11] LABS: CREATININE 0.65 MG/DL (0.60-1.30)
[2017-10-02 05:12] LABS: CALCIUM 6.5 MG/DL (8.5-10.1)
[2017-10-02 05:27] LABS: TOTAL PROTEIN 5.3 GM/DL (6.4-8.2)
[2017-10-02 05:29] LABS: CALCIUM-PROTEIN CORRECTED 7.4 MG/DL (8.5-10.1)
[2017-10-02] MEDS ORDERED: POTASSIUM CHLORIDE 25 MEQ EFFERVESCENT TAB PO ONE (05:45)
[2017-10-02] MEDS: POTASSIUM CHLOR 20 MEQ PREMIX 100 ML IV SCH ×3 (05:59→12:12)
[2017-10-02] MEDS ORDERED: CALCIUM GLUCONATE INJ 1 GM in DEXTROSE 5% IN WATER 100ML INJ 100 ML IV ONE ×2 (06:00)
[2017-10-02] MEDS ORDERED: POTASSIUM CHLORIDE 25 MEQ EFFERVESCENT TAB PO PRN (08:00)
[2017-10-02] MEDS ORDERED: ICU - POTASSIUM PHOSPHATE MONOBASIC 500 MG TAB PO PRN (08:00)
[2017-10-02] MEDS ORDERED: ICU - MAGNESIUM OXIDE 400 MG TAB PO PRN (08:00)
[2017-10-02] MEDS ORDERED: ICU - POTASSIUM PHOSPHATE 30 MMOL/NS 250 ML IV PRN ×2 (08:00)
[2017-10-02] MEDS ORDERED: ICU - MAGNESIUM SULFATE 4 GM/NS 100 ML IV PRN ×2 (08:00)
[2017-10-02] MEDS ORDERED: ICU - POTASSIUM CHLORIDE/AQUEOUS SOLN 40 MEQ/100 ML IVPB IV PRN (08:00)
[2017-10-02] MEDS ORDERED: ICU - SODIUM PHOSPHATE 30 MMOL/NS 250 ML IV PRN ×2 (08:00)
[2017-10-02] MEDS ORDERED: ICU - MAGNESIUM SULFATE 2 GM/NS 100 ML IV PRN ×2 (08:00)
[2017-10-02] MEDS ORDERED: ICU - D/C ICU ELECTROLYTE ORDERS PRN (08:00)
[2017-10-02] MEDS ORDERED: ICU - CALL ORDERING PHYSICIAN PRN (08:00)
[2017-10-02] MEDS: SODIUM CHLORIDE 0.9% FLUSH 10 ML FLUSH IV FLUSH SCH ×2 (09:00→19:38)
--- NOTE | 2017-10-02 09:12 | PD.CONS ---
HPI History of Present Illness This is a 57 year old male who was admitted to the hospital on 10/01/17. Patient has been in his usual state of health up until approximately a week ago when he noted 2 days of congestion in his chest with pressure in his right ear. He thought it was secondary to pollen and that it would get better. Patient then noted uncontrolled nausea, vomiting and generalized myalgias for the past 4 days. He states he also was very dizzy and lightheaded and felt like he was going to pass out when standing. Patient also notes some right upper quadrant tenderness for the past month but thought it was just muscle soreness. Patient currently is alert, awake, and a fairly good historian. He does note EGD and colonoscopy back in 2000 which showed some gastritis. Patient is positive for three quarters of a pack a day tobacco use, positive for daily alcohol use 6-8 beers since his teenage years, but denies any illicit drug use. She denies any melena, no diarrhea, no constipation. He is noting some clear serous drainage from his right eye probable secondary to his nasal congestion. CT scan has been performed since his admission which shows steatosis of the liver. Patient does have some possible wall thickening and a 6 cm segment of the mid sigmoid colon without distention this has been incompletely evaluated. But cannot exclude colonic lesion. Initial hemoglobin 9.4 on admission now after IV hydration is 7. Patient complains of no diarrhea or constipation, does occasionally note loose stools. (Krys Chapman) PFSH Past Medical History Chronic alcoholism Anxiety Chronic affective pulmonary disease Gastroesophageal reflux, takes an occasional Tums History of pancreatitis History of hypertension Past Surgical History Left wrist surgery Right eye laser surgery Oral surgery for implanted dentures Left ankle surgery with pins (Krys Chapman) Coded Allergies: No Known Allergies (Verified Allergy, Unknown, 10/01/17) Medications Administered Medications Medications (Trade) Dose Ordered Sig/Tiffanie Route PRN Reason Start Time Stop Time Status Last Admin Dose Admin Sodium Chloride 1,000 ml @ 100 mls/hr Q10H IV 10/01/17 16:00 10/02/17 02:00 Sodium Chloride (NS Flush) 2 ml BID IV FLUSH 10/01/17 21:00 10/02/17 09:00 Ondansetron HCl (Zofran Inj) 4 mg Q6H PRN IVP NAUSEA OR VOMITING 10/01/17 16:00 10/01/17 18:28 Multivitamins 10 ml/Folic Acid 1 mg/Sodium Chloride 510.2 ml @ 125 mls/hr Q24H IV 10/01/17 17:00 10/06/17 16:59 10/01/17 20:17 Thiamine HCl 100 mg/Sodium Chloride 101 ml @ 100 mls/hr Q24H IV 10/01/17 17:00 10/04/17 16:59 10/01/17 20:17 Potassium Chloride 100 ml @ 50 mls/hr Q2H IV 10/02/17 05:45 10/02/17 11:44 10/02/17 09:06 Family History Reviewed is significant for father having myocardial infarction at age 59. Social History Patient smokes three quarters pack a cigarettes a day since he was 15 years old. He drinks 5-6-8 beers a day. He does have withdrawal symptoms if he does not drink. Denies any illicit drugs. and lives alone. (Krys Chapman) Review of Systems Constitutional: COMPLAINS OF: Fatigue, Dizziness Ears, nose, mouth, throat: COMPLAINS OF: Vertigo Respiratory: COMPLAINS OF: Cough Gastrointestinal: COMPLAINS OF: Abdominal pain (right upper quadrant), Nausea, Vomiting (Krys Chapman) GI Exam Vitals I&O Vital Signs Date Time Temp Pulse Resp B/P (MAP) Pulse Ox O2 Delivery O2 Flow Rate FiO2 10/02/17 04:00 95.5 70 12 112/62 (79) 95 10/02/17 00:00 98.1 70 19 112/60 (77) 99 10/01/17 20:00 97.5 84 24 119/74 (89) 99 10/01/17 18:08 84 36 126/74 (91) 100 10/01/17 18:00 96 30 100 10/01/17 17:57 10/01/17 17:57 10/01/17 17:53 98.4 133/82 (99) 10/01/17 17:24 88 16 104/66 (79) 96 Room Air 10/01/17 16:25 88 16 10/01/17 15:49 88 16 104/66 (79) 100 Room Air 10/01/17 14:20 94 18 10/01/17 12:56 82 18 97/65 (76) 110 18 99/75 (83) 10/01/17 12:49 114 18 99/75 (83) 97 Room Air 10/01/17 12:30 102 18 10/01/17 12:14 98.2 60 18 114/76 (89) 100 I/O 10/01/17 10/01/17 10/01/17 10/02/17 10/02/17 10/02/17 07:00 15:00 23:00 07:00 15:00 23:00 Intake Total 329 ml 1120 ml Output Total 125 ml 600 ml Balance 204 ml 520 ml Intake Oral 120 ml IV Total 329 ml 1000 ml Output Urine Total 125 ml 600 ml # Bowel Movements 7 Imaging Last Impressions Head CT 10/01/17 1237 Signed Impressions: Service Date/Time: Sunday, October 01, 2017 14:40 - CONCLUSION: 1. Negative noncontrast CT brain. Dennys Rivas MD Abdomen/Pelvis CT 10/01/17 0000 Signed Impressions: Service Date/Time: Sunday, October 01, 2017 14:44 - CONCLUSION: 1. Steatosis the liver. 2. Possible wall thickening and a 6 cm segment of mid sigmoid colon without bowel distention; this is incompletely evaluated. Cannot exclude colonic lesion. If the patient has had not had a recent colonoscopy, may consider such. Dennys Rivas MD Laboratory Test 10/01/17 13:10 10/01/17 14:35 10/01/17 15:11 10/01/17 15:22 White Blood Count 15.1 TH/MM3 Red Blood Count 4.37 MIL/MM3 Hemoglobin 9.4 GM/DL Hematocrit 30.8 % Mean Corpuscular Volume 70.4 FL Mean Corpuscular Hemoglobin 21.5 PG Mean Corpuscular Hemoglobin Concent 30.6 % Red Cell Distribution Width 21.3 % Platelet Count 490 TH/MM3 Mean Platelet Volume 7.2 FL Neutrophils (%) (Auto) 93.6 % Lymphocytes (%) (Auto) 3.1 % Monocytes (%) (Auto) 2.5 % Eosinophils (%) (Auto) 0.0 % Basophils (%) (Auto) 0.8 % Neutrophils # (Auto) 14.1 TH/MM3 Lymphocytes # (Auto) 0.5 TH/MM3 Monocytes # (Auto) 0.4 TH/MM3 Eosinophils # (Auto) 0.0 TH/MM3 Basophils # (Auto) 0.1 TH/MM3 CBC Comment AUTO DIFF Differential Comment AUTO DIFF CONFIRMED Target Cells 1+ Ovalocytes 1+ Keratocytes OCC Blood Urea Nitrogen 6 MG/DL Creatinine 1.20 MG/DL Random Glucose 124 MG/DL Calcium Level 8.2 MG/DL Sodium Level 126 MEQ/L Potassium Level 2.2 MEQ/L Chloride Level 81 MEQ/L Carbon Dioxide Level 27.6 MEQ/L Anion Gap 17 MEQ/L Estimat Glomerular Filtration Rate 62 ML/MIN Magnesium Level 1.0 MG/DL Total Bilirubin 2.2 MG/DL Direct Bilirubin 0.8 MG/DL Indirect Bilirubin 1.4 MG/DL Aspartate Amino Transf (AST/SGOT) 85 U/L Alanine Aminotransferase (ALT/SGPT) 50 U/L Alkaline Phosphatase 134 U/L Troponin I LESS THAN 0.02 NG/ML Total Protein 7.4 GM/DL Albumin 3.0 GM/DL Ethyl Alcohol Level LESS THAN 3 MG/DL Urine Collection Type CATH Urine Color YELLOW Urine Turbidity CLEAR Urine pH 6.5 Urine Specific [place] 1.015 Urine Protein TRACE mg/dL Urine Glucose (UA) NEG mg/dL Urine Ketones NEG mg/dL Urine Occult Blood NEG Urine Nitrite NEG Urine Bilirubin NEG Urine Urobilinogen 1.0 MG/DL Urine Leukocyte Esterase NEG Urine RBC 0-3 /hpf Urine WBC 0-2 /hpf Urine Squamous Epithelial Cells 0-5 /hpf Urine Renal Epithelial Cells 0-5 /hpf Urine Hyaline Casts 15-19 /lpf Microscopic Urinalysis Comment CATH-CULT NOT IND Urine Collection Time 14:35 Lipase 376 U/L B-Hydroxybutyrate 0.10 MMOL/L Lactic Acid Level 7.8 mmol/L Test 10/01/17 18:25 10/01/17 19:07 10/01/17 20:49 10/02/17 04:30 Lactic Acid Level 3.8 mmol/L 4.6 mmol/L Nasal Screen MRSA (PCR) MRSA NOT DETECTED White Blood Count 11.3 TH/MM3 Red Blood Count 3.25 MIL/MM3 Hemoglobin 7.0 GM/DL Hematocrit 23.1 % Mean Corpuscular Volume 71.0 FL Mean Corpuscular Hemoglobin 21.6 PG Mean Corpuscular Hemoglobin Concent 30.5 % Red Cell Distribution Width 21.5 % Platelet Count 350 TH/MM3 Mean Platelet Volume 7.1 FL Neutrophils (%) (Auto) 77.5 % Lymphocytes (%) (Auto) 13.1 % Monocytes (%) (Auto) 6.2 % Eosinophils (%) (Auto) 1.5 % Basophils (%) (Auto) 1.7 % Neutrophils # (Auto) 8.6 TH/MM3 Lymphocytes # (Auto) 1.5 TH/MM3 Monocytes # (Auto) 0.7 TH/MM3 Eosinophils # (Auto) 0.2 TH/MM3 Basophils # (Auto) 0.2 TH/MM3 CBC Comment AUTO DIFF Differential Comment AUTO DIFF CONFIRMED Platelet Estimate NORMAL Platelet Morphology Comment NORMAL Blood Urea Nitrogen 3 MG/DL Creatinine 0.65 MG/DL Random Glucose 84 MG/DL Total Protein 5.3 GM/DL Calcium Level 6.5 MG/DL Sodium Level 138 MEQ/L Potassium Level 2.4 MEQ/L Chloride Level 102 MEQ/L Carbon Dioxide Level 29.9 MEQ/L Anion Gap 6 MEQ/L Estimat Glomerular Filtration Rate 126 ML/MIN Protein Corrected Calcium 7.4 MG/DL Test 10/02/17 06:58 Date/Time Source Procedure Growth Status 10/01/17 15:45 Blood Peripheral Aerobic Blood Culture Pending Received 10/01/17 15:45 Blood Peripheral Anaerobic Blood Culture Pending Received 10/02/17 06:58 Stool Stool Stool Occult Blood (KALI) Pending Received Physical Examination HEENT: Pupils round and reactive to light; normocephalic; atraumatic; obvious jaundice. Oral cavity clean NECK: Neck is supple, CHEST: Diminished breath sounds but no obvious audible wheezing or rhonchi. CARDIAC: Regular rate and rhythm ABDOMEN: taut, nondistended, mild tenderness right upper quadrant; no palpable liver; bowel sounds are present in all four quadrants. EXTREMITIES: No clubbing, cyanosis, or edema. SKIN: Normal; no rash; no jaundice., Oren FLAT CUTTER: No focal deficits; alert and oriented times three. (Krys Chapman) Assessment and Plan Assessment: (1) Nausea & vomiting ICD Codes: R11.2 - Nausea with vomiting, unspecified Status: Resolved (2) Alcoholism ICD Codes: F10.20 - Alcohol dependence, uncomplicated (3) Intractable vomiting ICD Codes: R11.10 - Vomiting, unspecified Status: Acute Plan Symptomatic anemia, initial hemoglobin 9.4 on admission now 7. With IV hydration. Patient has nausea, vomiting, and dizzy spells as if he is going to pass out but has not to his knowledge. Patient is a daily alcohol consumer as well as daily tobacco use note CT of the head was negative. Abdominal CT noted. Nausea and vomiting has subsided since IV hydration. Patient was attempting a small amount of food this a.m. but has not eaten and had very minimal strength for the past 4 days.. No recent EGD or colonoscopy since 2000 which was possibly done at the [facility] [place]. Patient states history of gastritis, but doesn't remember any other problems Right upper quadrant pain possible secondary to steatosis of the liver, possible alcohol related issues as well as lesion cannot be excluded. Symptoms 1 month Abnormal chemistry profile probable secondary to his dehydration and alcohol dependence. Hemoccult and C. difficile pending Plan Clear liquids today Consent for EGD colonoscopy in a.m., discussed prep and plan a care with patient. Plan for mag citrate 3 bottles, Consider transfusion Consider strict monitoring of any alcohol withdrawal. Anti-emetics PPI IV Patient has been seen per myself as well as Dr. Lucero, this note was written on his behalf (Krys Chapman) Physician Comments Patient seen and examined Agree with above Continue with current supportive care Monitor labs Patient appears to have C. difficile at this point patient was started on Flagyl we will need to convert this to oral once he is done with his colon prep Plan for an EGD with colonoscopy to further evaluate nausea vomiting with abnormal findings on CT suggestive of thickened colon (Indra Luceor MD) Problem Qualifiers (1) Intractable vomiting: Qualified Codes: R11.2 - Nausea with vomiting, unspecified Krys Chapman Oct 02, 2017 09:12 Indra Lucero MD Oct 02, 2017 20:19
[2017-10-02] MEDS: CIPROFLOXACIN 400 MG PREMIX 200 ML IV SCH ×2 (10:02→22:35)
--- NOTE | 2017-10-02 10:20 | RADRPT ---
EXAM DATE/TIME: 10/02/2017 09:46 [facility] COMPARISON: CHEST SINGLE AP, May 02, 2017, 19:33. INDICATIONS : Short of breath. MEDICAL HISTORY : Chronic obstructive pulmonary disease. Gastroesophageal reflux disease. Hypertension.Asthma. SURGICAL HISTORY : None. ENCOUNTER: Subsequent ACUITY: 2 days PAIN SCORE: 0/10 LOCATION: chest FINDINGS: A single view of the chest demonstrates the lungs to be symmetrically aerated without evidence of mas s, infiltrate or effusion. The cardiomediastinal contours are unremarkable. Osseous structures are intact. CONCLUSION: The lungs are clear. Dennys Rivas MD on October 02, 2017 at 10:17 Board Certified Radiologist. This report was verified electronically.
[2017-10-02 11:36] LABS: % SATURATION IRON PROFILE 9.8 % (20-50); IRON (FE) 34 MCG/DL (65-175); TOTAL IRON BINDING CAPACITY 349 MCG/DL (250-450)
--- NOTE | 2017-10-02 11:55 | HHI.PR ---
Subjective Remarks Follow up intractable vomiting and electrolyte imbalance. Patient seen and examined, lying in recliner chair comfortably. States he still feels "under the weather" today. Vital signs are stable. Labs reviewed today. GI in to see patient today. Plan for colonoscopy tomorrow morning. Prep today. H&H low. Anemia studies pending. Hemoccult ordered. No bleeding. Objective Vitals Vital Signs Date Time Temp Pulse Resp B/P (MAP) Pulse Ox O2 Delivery O2 Flow Rate FiO2 10/02/17 04:00 95.5 70 12 112/62 (79) 95 10/02/17 00:00 98.1 70 19 112/60 (77) 99 10/01/17 20:00 97.5 84 24 119/74 (89) 99 10/01/17 18:08 84 36 126/74 (91) 100 10/01/17 18:00 96 30 100 10/01/17 17:57 10/01/17 17:57 10/01/17 17:53 98.4 133/82 (99) 10/01/17 17:24 88 16 104/66 (79) 96 Room Air 10/01/17 16:25 88 16 10/01/17 15:49 88 16 104/66 (79) 100 Room Air 10/01/17 14:20 94 18 10/01/17 12:56 82 18 97/65 (76) 110 18 99/75 (83) 10/01/17 12:49 114 18 99/75 (83) 97 Room Air 10/01/17 12:30 102 18 10/01/17 12:14 98.2 60 18 114/76 (89) 100 I/O 10/01/17 10/01/17 10/01/17 10/02/17 10/02/17 10/02/17 07:00 15:00 23:00 07:00 15:00 23:00 Intake Total 329 ml 1120 ml 210 ml Output Total 125 ml 600 ml Balance 204 ml 520 ml 210 ml Intake Oral 120 ml IV Total 329 ml 1000 ml 210 ml Output Urine Total 125 ml 600 ml # Bowel Movements 7 Result Diagram: 10/02/17 0430 10/02/17 0430 Imaging Last Impressions Chest X-Ray 10/02/17 0000 Signed Impressions: Service Date/Time: September 09:46 - CONCLUSION: The lungs are clear. Dennys Rivas MD Head CT 10/01/17 1237 Signed Impressions: Service Date/Time: Sunday, October 01, 2017 14:40 - CONCLUSION: 1. Negative noncontrast CT brain. Dennys Rivas MD Abdomen/Pelvis CT 10/01/17 0000 Signed Impressions: Service Date/Time: Sunday, October 01, 2017 14:44 - CONCLUSION: 1. Steatosis the liver. 2. Possible wall thickening and a 6 cm segment of mid sigmoid colon without bowel distention; this is incompletely evaluated. Cannot exclude colonic lesion. If the patient has had not had a recent colonoscopy, may consider such. Dennys Rivas MD Objective Remarks GENERAL: Well-developed, thin appearing male patient in NAD. SKIN: Warm and dry. No rash. HEAD: Normocephalic. Atraumatic. EYES: Pupils equal and round. No scleral icterus. No injection or drainage. ENT: No nasal bleeding or discharge. Mucous membranes pink and moist. NECK: Supple. Trachea midline. CARDIOVASCULAR: Regular rate and rhythm. S1, S2 noted. No murmur appreciated. RESPIRATORY: No accessory muscle use. Clear to auscultation. Breath sounds equal bilaterally. GASTROINTESTINAL: Abdomen soft, non-tender, nondistended. Normoactive bowel sounds x4. MUSCULOSKELETAL: No obvious deformities. Extremities without clubbing, cyanosis , or edema. NEUROLOGICAL: Awake and alert. No obvious cranial nerve deficits. Motor grossly within normal limits. 5/5 muscle strength in bilateral upper and lower extremities. Normal speech. PSYCHIATRIC: Appropriate mood and affect; insight and judgment normal. A/P Problem List: (1) Intractable vomiting ICD Code: R11.10 - Vomiting, unspecified Status: Acute (2) Hyponatremia ICD Code: E87.1 - Hypo-osmolality and hyponatremia Status: Acute (3) Hypomagnesemia ICD Code: E83.42 - Hypomagnesemia Status: Acute (4) Hypokalemia ICD Code: E87.6 - Hypokalemia (5) Dehydration ICD Code: E86.0 - Dehydration Status: Acute (6) Alcoholism ICD Code: F10.20 - Alcohol dependence, uncomplicated Assessment and Plan This is a 57-year-old alcoholic who presented with intractable emesis, subjective fever and chills, dizziness and near syncopal episode at home. Intractable emesis, lightheadedness and dizziness suspect secondary to chronic alcoholism versus dehydration - Head CT reviewed, negative. - Continue IV fluids. Will check orthostatics. - Has not vomited >24 hours. Zofran available PRN. Transaminase Chronic alcoholism History of acute pancreatitis Microcytic, hypochromic anemia suspect secondary to iron deficiency versus blood loss versus dilutional Possible colitis - Lipase level 376, no acute pancreatitis. - Abdominal CT showing steatosis of the liver. Possible wall thickening and a 6 cm segment of mid sigmoid colon without bowel distention. Cannot exclude colonic lesion. - GI consulted for CT findings and possible colonoscopy. Appreciate further input and recommendations. Colonoscopy tomorrow. - Continue IV fluids, ensure hydration. Will add Cipro. - Hemoglobin 7.0 this morning from 9.4. No signs of bleeding. Anemia studies pending. Hemoccult pending. Will transfuse 1 PRBC today. - Iron low. Will add iron sucralose IV. Follow clinically. Add TSH. Hypokalemia Hypomagnesium Hyponatremia - All suspect secondary to nausea and vomiting versus alcoholism versus poor p.o. intake - Patient given 2 L NS bolus in ED. Continue maintenance IV fluid. - Will replace electrolytes. Continue to follow BMP. Alcoholism - No signs of alcohol withdrawal. Patient on CIWA protocol. Placed on multivitamin, folic acid and thiamine. Seizure precautions. - Education given about alcoholic cessation. DVT prophylaxis: SCDs. Problem Qualifiers (1) Intractable vomiting: Qualified Codes: R11.2 - Nausea with vomiting, unspecified Maria Alejandra Forman Oct 02, 2017 11:55
[2017-10-02] MEDS: metroNIDAZOLE 500 MG INJ 100 ML IV SCH ×2 (12:11→19:38)
[2017-10-02] MEDS: PANTOPRAZOLE SODIUM 40 MG VIAL IV PUSH SCH ×2 (12:11→22:35)
[2017-10-02] MEDS: MAGNESIUM CITRATE SOLN 300 ML BTL PO SCH ×2 (12:15→18:03)
[2017-10-02 15:11] LABS: FOLATE GREATER THAN 20.0 NG/ML (3.1-17.5)
[2017-10-02] MEDS: IRON SUCROSE INJ 100 MG in SODIUM CHLORIDE 0.9% INJ 100 ML IV SCH (15:18)
[2017-10-02] MEDS: MULTIVITAMIN INJ 10 ML, FOLIC ACID INJ 1 MG in SODIUM CHLORID 0.9% 500 ML INJ 500 ML IV SCH (16:22)
[2017-10-02] MEDS: THIAMINE INJ 100 MG in SODIUM CHLORIDE 0.9% INJ 100 ML IV SCH (16:23)
[2017-10-02] MEDS ORDERED: SODIUM CHLOR 0.9% 250 ML INJ 250 ML IV ONE (16:30)
[2017-10-02] MEDS: VANCOMYCIN 25 MG/ML SOLN 100 ML BOTTLE PO SCH ×2 (18:03→22:29)
[2017-10-02] MEDS: LORazepam 2 MG TAB PO PRN ×2 (20:18→22:01)
[2017-10-03] VITALS (23 sets, daily range): BP systolic 94–149; BP diastolic 59–96; PULSE 52–146; RESP 18–39; TEMP 97.3–98.8; O2SAT 83–100
[2017-10-03] MEDS: ICU - POTASSIUM CHLORIDE/AQUEOUS SOLN 20 MEQ/100 ML IVPB IV PRN ×6 (00:55→20:22)
[2017-10-03] MEDS ORDERED: HALOPERIDOL LACTATE 5 MG/ML AMP IM PRN (01:00)
[2017-10-03] MEDS: metroNIDAZOLE 500 MG INJ 100 ML IV SCH (03:11)
[2017-10-03] MEDS ORDERED: MAGNESIUM CITRATE SOLN 300 ML BTL PO ONE (04:00)
[2017-10-03 05:24] LABS: AUTOMATED NEUTROPHIL # 10.9 TH/MM3 (1.8-7.7); BASOPHIL # 0.1 TH/MM3 (0-0.2); BASOPHIL % 0.5 % (0.0-2.0); EOSINOPHIL # 0.3 TH/MM3 (0-0.4); EOSINOPHIL % 2.1 % (0.0-4.0); HEMATOCRIT 26.5 % (39.0-51.0); HEMOGLOBIN 8.1 GM/DL (13.0-17.0); LYMPH % 7.3 % (9.0-44.0); MEAN CELL VOLUME 73.9 FL (80.0-100.0); MEAN CORPUSCULAR HEMOGLOBIN 22.6 PG (27.0-34.0); MEAN CORPUSCULAR HGB CONC 30.6 % (32.0-36.0); MEAN PLATELET VOLUME 7.5 FL (7.0-11.0); MONO % 5.3 % (0.0-8.0); MONOCYTE # 0.7 TH/MM3 (0-0.9); NEUT % 84.8 % (16.0-70.0); PLATELET COUNT 293 TH/MM3 (150-450); RED BLOOD COUNT 3.58 MIL/MM3 (4.50-5.90)
[2017-10-03 05:40] LABS: OVALOCYTES 1+ (NORMAL)
[2017-10-03 05:44] LABS: ALBUMIN 2.4 GM/DL (3.4-5.0); ALT (GPT) 34 U/L (12-78); AST (GOT) 60 U/L (15-37); BICARBONATE 27.6 MEQ/L (21.0-32.0); BLOOD UREA NITROGEN LESS THAN 1 MG/DL (7-18); CALCIUM 7.1 MG/DL (8.5-10.1); CALCIUM-PROTEIN CORRECTED 7.9 MG/DL (8.5-10.1); CHLORIDE 104 MEQ/L (98-107); CREATININE 0.65 MG/DL (0.60-1.30); GLOMERULAR FILTRATION RATE 126 ML/MIN (>89); GLUCOSE,RANDOM 84 MG/DL (74-106); SODIUM (NA) 139 MEQ/L (136-145); TOTAL BILIRUBIN ADULT 1.5 MG/DL (0.2-1.0); TOTAL PROTEIN 5.6 GM/DL (6.4-8.2)
[2017-10-03] MEDS ORDERED: POTASSIUM CHLOR 20 MEQ PREMIX 100 ML IV SCH (05:45)
[2017-10-03] MEDS ORDERED: METOPROLOL TARTRATE 5 MG/5 ML VIAL IV PUSH ONE (05:45)
[2017-10-03 05:47] LABS: ALKALINE PHOSPHATASE 100 U/L (45-117)
[2017-10-03] MEDS ORDERED: DEXMEDETOMIDINE HCL 200 MCG/2 ML VIAL IV PUSH ONE (06:45)
--- NOTE | 2017-10-03 07:01 | PD.CONS ---
HPI Service Critical Care Medicine Consult Requested By [facility] Reason for Consult Encephalopathy, delirium tremens Primary Care Physician No Primary Care Physician History of Present Illness I have been asked to see this 57-year-old gentleman who is now about 2-1/2 days following his last drink. He is a long-standing alcoholic with the usual ravages including bouts of pancreatitis and hepatic changes. He initially presented to the emergency department with dizziness upon standing, probably exacerbated by severe electrolyte disturbances. He has been undergoing a GI workup associated with a mild anemia but at this juncture is clearly in full- blown alcoholic withdrawal. He has been on CIWA protocol and received all the appropriate prophylactic measures for someone with a long-standing alcohol history. But at this juncture he will require a Precedex sedation protocol to induce a calm state and prevent seizures. Review of Systems Respiratory: DENIES: Apneas, Cough, Snoring, Wheezing, Hemoptysis, Sputum production, Shortness of breath Cardiovascular: DENIES: Chest pain, Palpitations, Syncope, Dyspnea on Exertion , PND, Lower Extremity Edema, Orthopnea, Claudication Psychiatric: COMPLAINS OF: Confusion, Agitation, Delusions Past Family Social History Allergies: Coded Allergies: No Known Allergies (Verified Allergy, Unknown, 10/01/17) Past Medical History Past Medical History Narrative Medical List of his past medical, surgical, social and family history is reviewed from the nursing note. Arthritis: No Asthma: Yes Blood Disorders: No Anxiety: Yes Depression: Yes Heart Rhythm Problems: No Cancer: No Cardiovascular Problems: Yes (htn, chest pain,) High Cholesterol: No Chemotherapy: No Chest Pain: Yes Congestive Heart Failure: No COPD: Yes Cerebrovascular Accident: No Diabetes: No Diminished Hearing: No Endocrine: No Gastrointestinal Disorders: Yes (diarrhea) GERD: Yes Hypertension: Yes Immune Disorder: No Musculoskeletal: Yes (tightness in chest) Neurologic: Yes Psychiatric: Yes Reproductive: No Respiratory: Yes Pancreatitis: Yes Past Surgical History Eye Surgery: Yes (rt eye laser sugery 1999) Oral Surgery: Yes (top implanted front dentures) Thoracic Surgery: No Other Surgery: Yes (eft wrist and left ankle) Social History Alcohol Use: Yes Tobacco Use: Yes (1 PPD) Substance Use: No Allergies-Medications Allergies-Medications (Allergen,Severity, Reaction): Coded Allergies: No Known Allergies (Verified Allergy, Unknown, 10/01/17) Comments No known drug allergy Reported Meds & Prescriptions Reported Meds & Active Scripts Active Gnp Vitamin B-1 (Thiamine HCl) 100 Mg Tab 100 Mg PO DAILY Folic Acid 1 Mg Tablet 1 Mg PO DAILY Potassium Chloride Microencaps 20 Meq Tab 20 Meq PO BID Narrative Medication List of his home medications reviewed from the nursing note. Physical Exam Vital Signs Vital Signs Date Time Temp Pulse Resp B/P (MAP) Pulse Ox O2 Delivery O2 Flow Rate FiO2 10/03/17 04:31 98.8 94 24 141/78 (99) 100 10/03/17 03:31 116 38 134/68 (90) 100 10/03/17 02:22 102 22 118/69 (85) 100 10/03/17 00:01 97.6 106 25 116/77 (90) 100 10/02/17 23:11 92 25 101/67 (78) 100 10/02/17 21:40 98.0 88 26 100/60 100 10/02/17 20:23 86 23 125/72 (89) 100 10/02/17 20:02 98.1 80 23 105/64 100 10/02/17 19:52 98.1 110 29 113/59 (77) 100 10/02/17 19:47 98.2 95 30 113/59 100 10/02/17 16:19 72 21 102/66 (78) 10/02/17 15:21 101/61 (74) 10/02/17 14:21 88 25 101/62 (75) 10/02/17 13:55 96 21 97/69 (78) 10/02/17 13:34 106 30 87/66 (73) 10/02/17 12:00 98.4 80 23 115/81 (92) 10/02/17 12:00 80 23 115/81 (92) 10/02/17 11:00 114 34 97/72 (80) 10/02/17 10:56 88 18 100/63 (75) 10/02/17 09:07 98.5 76 24 100/73 (82) 99 Physical Exam General: Severely agitated and confused. Confabulation. He thinks he is in a bar in [place], Head: Flushed, red, atraumatic Neck: Supple: Airway widely patent, no obstruction Lungs: Generally clear bilaterally with good air movement. Mild exertional expiratory wheezes Heart: Tachycardia at 145, regular rhythm. Neck veins are flat. Too much noise to hear any murmurs. Abdomen: Voluntary muscle contraction but no peritoneal irritation. No guarding. Bowel sounds present. Extremities: Warm, well-perfused Neuro: Disoriented and confused. Moves 4 extremities with 6/5 strength. Tracks with eyes. Pupils 3 mm but do react. Unable to test cranial nerves but at least extraocular movements are intact. Facial muscles appear symmetrical. Severely agitated. No seizures. Conversant. Laboratory Laboratory Tests Test 10/02/17 06:58 10/02/17 23:09 10/03/17 04:45 Stool C. difficile Toxin (PCR) POSITIVE Stl C. difficile Toxin Epiderm 027 PRESUMPTIVE NEGATIVE Potassium Level 2.9 2.8 White Blood Count 13.0 Red Blood Count 3.58 Hemoglobin 8.1 Hematocrit 26.5 Mean Corpuscular Volume 73.9 Mean Corpuscular Hemoglobin 22.6 Mean Corpuscular Hemoglobin Concent 30.6 Red Cell Distribution Width 21.0 Platelet Count 293 Mean Platelet Volume 7.5 Neutrophils (%) (Auto) 84.8 Lymphocytes (%) (Auto) 7.3 Monocytes (%) (Auto) 5.3 Eosinophils (%) (Auto) 2.1 Basophils (%) (Auto) 0.5 Neutrophils # (Auto) 10.9 Lymphocytes # (Auto) 1.0 Monocytes # (Auto) 0.7 Eosinophils # (Auto) 0.3 Basophils # (Auto) 0.1 CBC Comment AUTO DIFF Differential Comment AUTO DIFF CONFIRMED Platelet Estimate NORMAL Platelet Morphology Comment NORMAL Ovalocytes 1+ Blood Urea Nitrogen LESS THAN 1 Creatinine 0.65 Random Glucose 84 Total Protein 5.6 Albumin 2.4 Calcium Level 7.1 Alkaline Phosphatase 100 Aspartate Amino Transf (AST/SGOT) 60 Alanine Aminotransferase (ALT/SGPT) 34 Total Bilirubin 1.5 Sodium Level 139 Chloride Level 104 Carbon Dioxide Level 27.6 Anion Gap 7 Estimat Glomerular Filtration Rate 126 Protein Corrected Calcium 7.9 Date/Time Source Procedure Growth Status 10/01/17 15:45 Blood Peripheral Aerobic Blood Culture - Preliminary NO GROWTH IN 1 DAY Resulted 10/01/17 15:45 Blood Peripheral Anaerobic Blood Culture - Preliminary NO GROWTH IN 1 DAY Resulted 10/02/17 06:58 Stool Stool Stool Occult Blood (KALI) - Final HEMOCCULT NEGATIVE Complete Result Diagram: 10/03/1744410/03/175 Assessment and Plan Assessment and Plan Assessment: 1. Alcohol withdrawal, acute 2. Electrolyte disturbance. 3. Possible colon mass. 4. Anemia of unknown cause, probably chronic disease 5. Protein calorie malnutrition with obvious temporal and peripheral muscle wasting. Plan: 1. Aggressive IV hydration 2. Electrolyte replacement protocol 3. Particular attention to phosphorus and magnesium to raise seizure threshold 4. Continue aggressive GI ulcer prophylaxis 5. Hold chemical DVT prophylaxis until endoscopies performed 6. SCDs for DVT prophylaxis 7. Continue vitamin replacement protocol 8. Place Ng to monitor hourly urinary output 9. Precedex bolus and drip infusion. 10. D/C iv antibiotics. Continue PO vancomycin Overall impression: Despite excellent prophylactic measures for the prevention of alcohol withdrawal this gentleman has progressed to full-blown delirium tremens. He is critically ill at this point and at high risk for alcohol withdrawal seizures. He requires a Precedex bolus and drip infusion to control severe agitation and reduce the likelihood of seizures. Endoscopy should be put on hold until his metabolic status is improved. Critical care time 40 minutes aside from procedures Shaheed Guevara MD Oct 03, 2017 07:01
[2017-10-03] MEDS: DEXMEDETOMIDINE INJ 200 MCG in SODIUM CHLORIDE 0.9% INJ 50 ML IV PRN ×2 (07:15→08:57)
[2017-10-03 07:35] LABS: MAGNESIUM 1.4 MG/DL (1.5-2.5)
[2017-10-03 07:38] LABS: PHOSPHORUS 0.3 MG/DL (2.5-4.9)
--- NOTE | 2017-10-03 07:41 | HHI.GIFU ---
Subjective Remarks Patient confused agitated going through acute alcohol withdrawal Objective Vitals I&O Vital Signs Date Time Temp Pulse Resp B/P (MAP) Pulse Ox O2 Delivery O2 Flow Rate FiO2 10/03/17 04:31 98.8 94 24 141/78 (99) 100 10/03/17 03:31 116 38 134/68 (90) 100 10/03/17 02:22 102 22 118/69 (85) 100 10/03/17 00:01 97.6 106 25 116/77 (90) 100 10/02/17 23:11 92 25 101/67 (78) 100 10/02/17 21:40 98.0 88 26 100/60 100 10/02/17 20:23 86 23 125/72 (89) 100 10/02/17 20:02 98.1 80 23 105/64 100 10/02/17 19:52 98.1 110 29 113/59 (77) 100 10/02/17 19:47 98.2 95 30 113/59 100 10/02/17 16:19 72 21 102/66 (78) 10/02/17 15:21 101/61 (74) 10/02/17 14:21 88 25 101/62 (75) 10/02/17 13:55 96 21 97/69 (78) 10/02/17 13:34 106 30 87/66 (73) 10/02/17 12:00 98.4 80 23 115/81 (92) 10/02/17 12:00 80 23 115/81 (92) 10/02/17 11:00 114 34 97/72 (80) 10/02/17 10:56 88 18 100/63 (75) 10/02/17 09:07 98.5 76 24 100/73 (82) 99 I/O 10/02/17 10/02/17 10/02/17 10/03/17 10/03/17 10/03/17 07:00 15:00 23:00 07:00 15:00 23:00 Intake Total 1120 ml 610 ml 1371 ml 1100 ml Output Total 600 ml 7 ml 750 ml Balance 520 ml 610 ml 1364 ml 350 ml Intake Oral 120 ml IV Total 1000 ml 610 ml 971 ml 1100 ml Packed Cells 400 ml Output Urine Total 600 ml 750 ml Stool Total 7 ml # Bowel Movements 7 4 Laboratory Laboratory Tests Test 10/02/17 23:09 10/03/17 04:45 Potassium Level 2.9 2.8 White Blood Count 13.0 Red Blood Count 3.58 Hemoglobin 8.1 Hematocrit 26.5 Mean Corpuscular Volume 73.9 Mean Corpuscular Hemoglobin 22.6 Mean Corpuscular Hemoglobin Concent 30.6 Red Cell Distribution Width 21.0 Platelet Count 293 Mean Platelet Volume 7.5 Neutrophils (%) (Auto) 84.8 Lymphocytes (%) (Auto) 7.3 Monocytes (%) (Auto) 5.3 Eosinophils (%) (Auto) 2.1 Basophils (%) (Auto) 0.5 Neutrophils # (Auto) 10.9 Lymphocytes # (Auto) 1.0 Monocytes # (Auto) 0.7 Eosinophils # (Auto) 0.3 Basophils # (Auto) 0.1 CBC Comment AUTO DIFF Differential Comment AUTO DIFF CONFIRMED Platelet Estimate NORMAL Platelet Morphology Comment NORMAL Ovalocytes 1+ Blood Urea Nitrogen LESS THAN 1 Creatinine 0.65 Random Glucose 84 Total Protein 5.6 Albumin 2.4 Calcium Level 7.1 Alkaline Phosphatase 100 Aspartate Amino Transf (AST/SGOT) 60 Alanine Aminotransferase (ALT/SGPT) 34 Total Bilirubin 1.5 Sodium Level 139 Chloride Level 104 Carbon Dioxide Level 27.6 Anion Gap 7 Estimat Glomerular Filtration Rate 126 Protein Corrected Calcium 7.9 Magnesium Level 1.4 Lipase 270 Date/Time Source Procedure Growth Status 10/01/17 15:45 Blood Peripheral Aerobic Blood Culture - Preliminary NO GROWTH IN 1 DAY Resulted 10/01/17 15:45 Blood Peripheral Anaerobic Blood Culture - Preliminary NO GROWTH IN 1 DAY Resulted 10/02/17 06:58 Stool Stool Stool Occult Blood (KALI) - Final HEMOCCULT NEGATIVE Complete Imaging Last 48 hours Impressions Chest X-Ray 10/02/17 0000 Signed Impressions: Service Date/Time: September 09:46 - CONCLUSION: The lungs are clear. Dennys Rivas MD Head CT 10/01/17 1237 Signed Impressions: Service Date/Time: Sunday, October 01, 2017 14:40 - CONCLUSION: 1. Negative noncontrast CT brain. Dennys Rivas MD Physical Exam HEENT: normocephalic; atraumatic; no jaundice. Throat is clear. NECK: Neck is supple, no JVD, CHEST: Chest is clear to auscultation and percussion. CARDIAC: Regular rate and rhythm with no murmur gallop or rubs. ABDOMEN: Soft, nondistended, nontender; no hepatosplenomegaly; bowel sounds are present in all four quadrants. EXTREMITIES: No clubbing, cyanosis, or edema. SKIN: Normal; no rash; no jaundice. DEVELOPMENTAL SERVICES WORKER: Confused and agitated Assessment and Plan Assessment: (1) Nausea & vomiting ICD Codes: R11.2 - Nausea with vomiting, unspecified Status: Resolved (2) Alcoholism ICD Codes: F10.20 - Alcohol dependence, uncomplicated (3) Intractable vomiting ICD Codes: R11.10 - Vomiting, unspecified Status: Acute Plan Symptomatic anemia, initial hemoglobin 9.4 on admission now 7. With IV hydration. Patient has nausea, vomiting, and dizzy spells as if he is going to pass out but has not to his knowledge. Patient is a daily alcohol consumer as well as daily tobacco use note CT of the head was negative. Abdominal CT noted. Nausea and vomiting has subsided since IV hydration. Patient was attempting a small amount of food this a.m. but has not eaten and had very minimal strength for the past 4 days.. No recent EGD or colonoscopy since 2000 which was possibly done at the [facility]. Patient states history of gastritis, but doesn't remember any other problems Right upper quadrant pain possible secondary to steatosis of the liver, possible alcohol related issues as well as lesion cannot be excluded. Symptoms 1 month Abnormal chemistry profile probable secondary to his dehydration and alcohol dependence. Hemoccult and C. difficile pending Plan Clear liquids today Patient not stable for endoscopy today we will proceed once patient is deemed to be stable Anti-emetics PPI IV Continue with current supportive care Further recommendations will depend on his hospital course Problem Qualifiers (1) Intractable vomiting: Qualified Codes: R11.2 - Nausea with vomiting, unspecified Indra Lucero MD Oct 03, 2017 07:41
[2017-10-03] MEDS: POTASSIUM CHLORIDE INJ 10 MEQ in DEXT 5%-NACL 0.9% 1000 ML INJ 1,000 ML IV SCH ×2 (08:46→21:20)
[2017-10-03] MEDS: MAGNESIUM SULFATE 1 GM PREMIX 100 ML IV SCH ×2 (08:57→10:52)
[2017-10-03] MEDS: SODIUM CHLORIDE 0.9% FLUSH 10 ML FLUSH IV FLUSH SCH ×2 (08:57→21:19)
--- NOTE | 2017-10-03 10:40 | EKG ---
Date Performed: 10/01/2017 Time Performed: 12:45:57 PTAGE: 57 years EKG: Sinus rhythm WITH FREQUENT VENTRICULAR PREMATURE COMPLEXES INCOMPLETE RIGHT BUNDLE BRANCH BLOCK NONSPECIFIC ST & T-WAVE ABNORMALITY ABNORMAL RHYTHM ECG PREVIOUS TRACING : 08/01/2017 21.02 Possible left ventricular hypertrophy. Since the prior trac ing, the frequent PVCs are new. There has been an increase in ventricular voltage with some associate d ST segment changes, suggesting possible left ventricular hypertrophy. Myocardial ischemia should al so be excluded clinically. DOCTOR: Unique Obregon Interpretating Date/Time 10/03/2017 10:39:40
[2017-10-03] MEDS: VANCOMYCIN 25 MG/ML SOLN 100 ML BOTTLE PO SCH ×4 (11:13→21:19)
[2017-10-03] MEDS: PANTOPRAZOLE SODIUM 40 MG VIAL IV PUSH SCH ×2 (11:13→21:20)
[2017-10-03] MEDS ORDERED: DEXMEDETOMIDINE INJ 400 MCG in SODIUM CHLORIDE 0.9% INJ 100 ML IV PRN (11:30)
[2017-10-03] MEDS: IRON SUCROSE INJ 100 MG in SODIUM CHLORIDE 0.9% INJ 100 ML IV SCH (15:22)
[2017-10-03 16:27] LABS: CHLORIDE 106 MEQ/L (98-107); SODIUM (NA) 142 MEQ/L (136-145)
[2017-10-03 16:34] LABS: BICARBONATE 28.4 MEQ/L (21.0-32.0); BLOOD UREA NITROGEN LESS THAN 1 MG/DL (7-18); CALCIUM 7.3 MG/DL (8.5-10.1); CREATININE 0.78 MG/DL (0.60-1.30); GLOMERULAR FILTRATION RATE 102 ML/MIN (>89); GLUCOSE,RANDOM 136 MG/DL (74-106)
[2017-10-03] MEDS: THIAMINE INJ 100 MG in SODIUM CHLORIDE 0.9% INJ 100 ML IV SCH (16:38)
[2017-10-03] MEDS: MULTIVITAMIN INJ 10 ML, FOLIC ACID INJ 1 MG in SODIUM CHLORID 0.9% 500 ML INJ 500 ML IV SCH (16:38)
[2017-10-03 16:49] LABS: TOTAL PROTEIN 5.8 GM/DL (6.4-8.2)
[2017-10-04] VITALS (19 sets, daily range): BP systolic 94–141; BP diastolic 50–101; PULSE 64–150; RESP 18–42; TEMP 97.6–98.4; O2SAT 95–100
[2017-10-04 05:10] LABS: AUTOMATED NEUTROPHIL # 10.8 TH/MM3 (1.8-7.7); BASOPHIL # 0.1 TH/MM3 (0-0.2); BASOPHIL % 0.4 % (0.0-2.0); EOSINOPHIL # 0.4 TH/MM3 (0-0.4); EOSINOPHIL % 3.1 % (0.0-4.0); HEMATOCRIT 26.6 % (39.0-51.0); LYMPH % 9.7 % (9.0-44.0); LYMPHOCYTE # 1.3 TH/MM3 (1.0-4.8); MEAN CELL VOLUME 74.1 FL (80.0-100.0); MEAN CORPUSCULAR HEMOGLOBIN 22.4 PG (27.0-34.0); MEAN CORPUSCULAR HGB CONC 30.2 % (32.0-36.0); MEAN PLATELET VOLUME 7.2 FL (7.0-11.0); MONO % 3.3 % (0.0-8.0); MONOCYTE # 0.4 TH/MM3 (0-0.9); NEUT % 83.5 % (16.0-70.0); PLATELET COUNT 285 TH/MM3 (150-450); RED BLOOD COUNT 3.59 MIL/MM3 (4.50-5.90); RED CELL DISTRIBUTION WIDTH 21.4 % (11.6-17.2)
[2017-10-04 05:25] LABS: OVALOCYTES 1+ (NORMAL)
[2017-10-04 05:29] LABS: BICARBONATE 26.9 MEQ/L (21.0-32.0); BLOOD UREA NITROGEN LESS THAN 1 MG/DL (7-18); CALCIUM 7.1 MG/DL (8.5-10.1); CHLORIDE 103 MEQ/L (98-107); GLUCOSE,RANDOM 84 MG/DL (74-106); MAGNESIUM 1.5 MG/DL (1.5-2.5); SODIUM (NA) 139 MEQ/L (136-145)
[2017-10-04] MEDS: POTASSIUM CHLORIDE INJ 10 MEQ in DEXT 5%-NACL 0.9% 1000 ML INJ 1,000 ML IV SCH ×2 (05:29→14:34)
[2017-10-04 05:32] LABS: CREATININE 0.57 MG/DL (0.60-1.30); GLOMERULAR FILTRATION RATE 147 ML/MIN (>89); PHOSPHORUS 1.8 MG/DL (2.5-4.9)
[2017-10-04 05:48] LABS: CALCIUM-PROTEIN CORRECTED 7.9 MG/DL (8.5-10.1); TOTAL PROTEIN 5.6 GM/DL (6.4-8.2)
--- NOTE | 2017-10-04 06:22 | HHI.CCPN ---
Subjective Remarks/Hospital Course I have been asked to see this 57-year-old gentleman who is now about 2-1/2 days following his last drink. He is a long-standing alcoholic with the usual ravages including bouts of pancreatitis and hepatic changes. He initially presented to the emergency department with dizziness upon standing, probably exacerbated by severe electrolyte disturbances. He has been undergoing a GI workup associated with a mild anemia but at this juncture is clearly in full- blown alcoholic withdrawal. He has been on CIWA protocol and received all the appropriate prophylactic measures for someone with a long-standing alcohol history. But at this juncture he will require a Precedex sedation protocol to induce a calm state and prevent seizures. 10/04: Calm and weaned off precedex. Continue some bid librium. Objective Vital Signs Date Time Temp Pulse Resp B/P (MAP) Pulse Ox O2 Delivery O2 Flow Rate FiO2 10/04/17 06:00 110 10/04/17 05:00 22 94/50 (65) 95 10/04/17 04:43 98.4 10/03/17 20:11 Nasal Cannula 2.00 Intake and Output 10/04/17 10/04/17 10/05/17 08:00 16:00 00:00 Output Total 2300 ml Balance -2300 ml Result Diagram: 10/04/17 0440 10/04/17 0440 Other Results Microbiology Date/Time Source Procedure Growth Status 10/02/17 06:58 Stool Stool Stool Occult Blood (KALI) - Final HEMOCCULT NEGATIVE Complete Objective Remarks General: Calm. Head: Flushed, red, atraumatic Neck: Supple: Airway widely patent, no obstruction Lungs: Generally clear bilaterally with good air movement. Nonlabored. Heart: Tachycardia resolved, regular rhythm. Neck veins are flat. Abdomen: Soft. No guarding. Bowel sounds present. Extremities: Warm, well-perfused Neuro: O X 3, alert. Moves 4 extremities with 5/5 strength. Tracks with eyes. Pupils 3 mm but do react. Conversant. A/P Assessment and Plan Assessment: 1. Alcohol withdrawal, acute 2. Electrolyte disturbance. 3. Possible colon mass. 4. Anemia of unknown cause, probably chronic disease 5. Protein calorie malnutrition with obvious temporal and peripheral muscle wasting. Plan: 1. D/C aggressive IV hydration 2. Electrolyte replacement protocol 3. Particular attention to phosphorus and magnesium to raise seizure threshold 4. Continue aggressive GI ulcer prophylaxis 5. Hold chemical DVT prophylaxis until endoscopies performed 6. SCDs for DVT prophylaxis 7. Continue vitamin replacement protocol 8. Place Ng to monitor hourly urinary output 9. D/C Precedex bolus and drip infusion. 10. D/C iv antibiotics. Continue PO vancomycin Overall impression: Despite excellent prophylactic measures for the prevention of alcohol withdrawal this gentleman progressed to full-blown delirium tremens He required a Precedex bolus and drip infusion to control severe agitation. Endoscopy could be performed any time. Shaheed Guevara MD Oct 04, 2017 06:22
[2017-10-04] MEDS: chlordiazePOXIDE 25 MG CAP PO SCH ×3 (08:42→21:29)
[2017-10-04] MEDS: VANCOMYCIN 25 MG/ML SOLN 100 ML BOTTLE PO SCH ×4 (08:42→20:03)
[2017-10-04] MEDS: SODIUM CHLORIDE 0.9% FLUSH 10 ML FLUSH IV FLUSH SCH ×2 (09:00→20:34)
[2017-10-04] MEDS: PANTOPRAZOLE SODIUM 40 MG VIAL IV PUSH SCH ×2 (11:10→21:29)
--- NOTE | 2017-10-04 11:40 | HHI.GIFU ---
Subjective Remarks Pt is sitting up in bed, doing good today, having loose stools, they are slightly dark, he did the prep for the colonoscopy last night, having some nausea, not much pain. (Berna Tinajero CESAR) Objective Vitals I&O Vital Signs Date Time Temp Pulse Resp B/P (MAP) Pulse Ox O2 Delivery O2 Flow Rate FiO2 10/04/17 06:00 110 10/04/17 05:00 86 22 94/50 (65) 95 10/04/17 04:43 98.4 96 23 99/51 (67) 96 10/04/17 04:00 74 10/04/17 02:00 64 10/04/17 01:04 126 38 140/73 (95) 97 10/04/17 00:00 110 10/04/17 00:00 98.3 110 28 124/83 (97) 97 10/03/17 23:00 104 26 132/83 (99) 99 10/03/17 22:00 88 23 123/80 (94) 99 10/03/17 22:00 88 10/03/17 21:34 98.6 96 26 123/79 (94) 100 10/03/17 20:11 95 Nasal Cannula 2.00 10/03/17 20:00 80 10/03/17 18:00 98 10/03/17 16:00 97.3 92 20 128/73 (91) 99 10/03/17 16:00 92 10/03/17 15:00 64 10/03/17 14:00 52 10/03/17 13:00 54 10/03/17 13:00 54 18 94/63 (73) 94 10/03/17 12:00 74 10/03/17 12:00 98.0 74 23 96/59 (71) 93 I/O 10/03/17 10/03/17 10/03/17 10/04/17 10/04/17 10/04/17 07:00 15:00 23:00 07:00 15:00 23:00 Intake Total 1100 ml 600 ml 3649 ml 900 ml Output Total 750 ml 1750 ml 2300 ml Balance 350 ml 600 ml 1899 ml -1400 ml Intake Oral 500 ml IV Total 1100 ml 600 ml 3149 ml 900 ml Output Urine Total 750 ml 1750 ml 2300 ml # Bowel Movements 4 1 Laboratory Laboratory Tests Test 10/03/17 15:50 10/04/17 04:40 Blood Urea Nitrogen LESS THAN 1 LESS THAN 1 Creatinine 0.78 0.57 Random Glucose 136 84 Total Protein 5.8 5.6 Calcium Level 7.3 7.1 Sodium Level 142 139 Potassium Level 3.3 2.6 Chloride Level 106 103 Carbon Dioxide Level 28.4 26.9 Anion Gap 8 9 Estimat Glomerular Filtration Rate 102 147 Protein Corrected Calcium 8.0 7.9 White Blood Count 13.0 Red Blood Count 3.59 Hemoglobin 8.0 Hematocrit 26.6 Mean Corpuscular Volume 74.1 Mean Corpuscular Hemoglobin 22.4 Mean Corpuscular Hemoglobin Concent 30.2 Red Cell Distribution Width 21.4 Platelet Count 285 Mean Platelet Volume 7.2 Neutrophils (%) (Auto) 83.5 Lymphocytes (%) (Auto) 9.7 Monocytes (%) (Auto) 3.3 Eosinophils (%) (Auto) 3.1 Basophils (%) (Auto) 0.4 Neutrophils # (Auto) 10.8 Lymphocytes # (Auto) 1.3 Monocytes # (Auto) 0.4 Eosinophils # (Auto) 0.4 Basophils # (Auto) 0.1 CBC Comment AUTO DIFF Differential Comment AUTO DIFF CONFIRMED Platelet Estimate NORMAL Platelet Morphology Comment NORMAL Ovalocytes 1+ Phosphorus Level 1.8 Magnesium Level 1.5 Date/Time Source Procedure Growth Status 10/01/17 15:45 Blood Peripheral Aerobic Blood Culture - Preliminary NO GROWTH IN 3 DAYS Resulted 10/01/17 15:45 Blood Peripheral Anaerobic Blood Culture - Preliminary NO GROWTH IN 3 DAYS Resulted 10/02/17 06:58 Stool Stool Stool Occult Blood (KALI) - Final HEMOCCULT NEGATIVE Complete Imaging Last Impressions Chest X-Ray 10/02/17 0000 Signed Impressions: Service Date/Time: September 09:46 - CONCLUSION: The lungs are clear. Dennys Rivas MD Head CT 10/01/17 1237 Signed Impressions: Service Date/Time: Sunday, October 01, 2017 14:40 - CONCLUSION: 1. Negative noncontrast CT brain. Dennys Rivas MD Abdomen/Pelvis CT 10/01/17 0000 Signed Impressions: Service Date/Time: Sunday, October 01, 2017 14:44 - CONCLUSION: 1. Steatosis the liver. 2. Possible wall thickening and a 6 cm segment of mid sigmoid colon without bowel distention; this is incompletely evaluated. Cannot exclude colonic lesion. If the patient has had not had a recent colonoscopy, may consider such. Dennys Rivas MD Physical Exam HEENT: normocephalic; atraumatic; no jaundice. Throat is clear. NECK: Neck is supple, no JVD, CHEST: Chest is clear to auscultation and percussion. CARDIAC: Regular rate and rhythm with no murmur gallop or rubs. ABDOMEN: Soft, nondistended, nontender; no hepatosplenomegaly; bowel sounds are present in all four quadrants. EXTREMITIES: No clubbing, cyanosis, or edema. SKIN: Normal; no rash; no jaundice. HUMIDIFIER MAINTENANCE WORKER: alert and oriented (Berna Tinajero) Assessment and Plan Assessment: (1) Nausea & vomiting ICD Codes: R11.2 - Nausea with vomiting, unspecified Status: Resolved (2) Alcoholism ICD Codes: F10.20 - Alcohol dependence, uncomplicated (3) Intractable vomiting ICD Codes: R11.10 - Vomiting, unspecified Status: Acute Plan Symptomatic anemia, initial hemoglobin 9.4 on admission now 7. With IV hydration. Patient has nausea, vomiting, and dizzy spells as if he is going to pass out but has not to his knowledge. Patient is a daily alcohol consumer as well as daily tobacco use note CT of the head was negative. Abdominal CT noted. Nausea and vomiting has subsided since IV hydration. Patient was attempting a small amount of food this a.m. but has not eaten and had very minimal strength for the past 4 days.. No recent EGD or colonoscopy since 2000 which was possibly done at the [facility]. Patient states history of gastritis, but doesn't remember any other problems Right upper quadrant pain possible secondary to steatosis of the liver, possible alcohol related issues as well as lesion cannot be excluded. Symptoms 1 month Abnormal chemistry profile probable secondary to his dehydration and alcohol dependence. Hemoccult and C. difficile pending 10/04/17 (+) for c-diff, on Vancomycin, no more bleeding reported,hgb stable today 8.0 Ct showed possible wall thickening and 6 cm segment of mid sigmoid colon , cannot exclude colon lesion Plan Full liquid diet EGD/colonoscopy on Friday Obtain consents clear tomorrow Npo mn tomorrow golytely tomorrow Monitor hh transfuse as needed Anti-emetics PPI IV Continue with current supportive care Pt seen and examined by Dr. Borja and myself and this note is written on his behalf. (Berna Tinajero) Physician Comments Seen and exmined with CESAR, doing well. On treatment for C. Diff. Egd/ colonoscopy on friday. Liquid diet. (Michelle Borja MD) Problem Qualifiers (1) Intractable vomiting: Qualified Codes: R11.2 - Nausea with vomiting, unspecified Berna Tinajero Oct 04, 2017 11:40 Michelle Borja MD Oct 04, 2017 17:45
[2017-10-04] MEDS: IRON SUCROSE INJ 100 MG in SODIUM CHLORIDE 0.9% INJ 100 ML IV SCH (14:34)
[2017-10-04 15:55] LABS: CHLORIDE 103 MEQ/L (98-107); SODIUM (NA) 136 MEQ/L (136-145)
[2017-10-04 17:43] LABS: BICARBONATE 23.2 MEQ/L (21.0-32.0); BLOOD UREA NITROGEN LESS THAN 1 MG/DL (7-18); CALCIUM 7.3 MG/DL (8.5-10.1); GLOMERULAR FILTRATION RATE 99 ML/MIN (>89); GLUCOSE,RANDOM 115 MG/DL (74-106); PHOSPHORUS 2.9 MG/DL (2.5-4.9)
[2017-10-04] MEDS: MULTIVITAMIN INJ 10 ML, FOLIC ACID INJ 1 MG in SODIUM CHLORID 0.9% 500 ML INJ 500 ML IV SCH (17:54)
[2017-10-04 18:35] LABS: CALCIUM-PROTEIN CORRECTED 7.6 MG/DL (8.5-10.1); TOTAL PROTEIN 6.6 GM/DL (6.4-8.2)
[2017-10-04] MEDS: ICU - POTASSIUM CHLORIDE/AQUEOUS SOLN 20 MEQ/100 ML IVPB IV PRN (22:05)
[2017-10-05] VITALS (19 sets, daily range): BP systolic 114–140; BP diastolic 66–96; PULSE 62–108; RESP 18–36; TEMP 98.2–98.7; O2SAT 96–100
[2017-10-05] MEDS: ICU - POTASSIUM CHLORIDE/AQUEOUS SOLN 20 MEQ/100 ML IVPB IV PRN (00:18)
[2017-10-05] MEDS: POTASSIUM CHLORIDE INJ 10 MEQ in DEXT 5%-NACL 0.9% 1000 ML INJ 1,000 ML IV SCH ×3 (04:54→21:18)
[2017-10-05] MEDS: chlordiazePOXIDE 25 MG CAP PO SCH ×3 (06:25→21:15)
[2017-10-05 07:19] LABS: BICARBONATE 26.2 MEQ/L (21.0-32.0); CALCIUM 7.3 MG/DL (8.5-10.1); CREATININE 0.58 MG/DL (0.60-1.30); MAGNESIUM 1.4 MG/DL (1.5-2.5); PHOSPHORUS 2.9 MG/DL (2.5-4.9)
[2017-10-05 08:41] LABS: CALCIUM-PROTEIN CORRECTED 8.2 MG/DL (8.5-10.1); TOTAL PROTEIN 5.4 GM/DL (6.4-8.2)
[2017-10-05] MEDS: THIAMINE HCL 100 MG TAB PO SCH (10:10)
[2017-10-05] MEDS: VANCOMYCIN 25 MG/ML SOLN 100 ML BOTTLE PO SCH ×4 (10:10→21:22)
[2017-10-05] MEDS: PANTOPRAZOLE SODIUM 40 MG VIAL IV PUSH SCH ×2 (10:10→21:16)
[2017-10-05] MEDS: SODIUM CHLORIDE 0.9% FLUSH 10 ML FLUSH IV FLUSH SCH ×2 (10:10→21:16)
[2017-10-05 15:51] LABS: CHLORIDE 105 MEQ/L (98-107); SODIUM (NA) 137 MEQ/L (136-145)
[2017-10-05 15:54] LABS: BICARBONATE 24.8 MEQ/L (21.0-32.0); BLOOD UREA NITROGEN LESS THAN 1 MG/DL (7-18); GLUCOSE,RANDOM 89 MG/DL (74-106)
[2017-10-05 15:58] LABS: CREATININE 0.64 MG/DL (0.60-1.30); GLOMERULAR FILTRATION RATE 128 ML/MIN (>89)
[2017-10-05] MEDS ORDERED: PEG (High)/E-LYTE SOLN 4000 ML BTL PO ONE (16:00)
--- NOTE | 2017-10-05 16:36 | HHI.PR ---
Subjective Remarks Pt states he feels "alright". scheduled for EGD /coloscopy in AM States he had 4-5 BMs, very loose stools today. some abdominal right lower quadrant after eating food 3-10/07 but currently no pain. has romano had get discomfort w it. no nausea or vomiting. no CP/SOB Objective Vitals Vital Signs Date Time Temp Pulse Resp B/P (MAP) Pulse Ox O2 Delivery O2 Flow Rate FiO2 10/05/17 15:00 78 22 116/73 (87) 100 10/05/17 14:00 94 24 140/91 (107) 100 10/05/17 13:00 72 22 120/72 (88) 100 10/05/17 12:00 98.3 64 20 123/85 (98) 98 10/05/17 11:00 68 21 114/82 (93) 99 10/05/17 10:00 88 36 123/83 (96) 100 10/05/17 08:00 98.3 72 26 119/92 (101) 99 10/05/17 06:00 80 10/05/17 06:00 80 19 118/75 (89) 98 10/05/17 05:00 98.7 74 21 115/79 (91) 97 10/05/17 04:00 99 10/05/17 04:00 74 19 116/75 (89) 97 10/05/17 03:00 62 19 116/75 (89) 99 10/05/17 02:10 98 22 139/81 (100) 96 10/05/17 02:00 100 10/05/17 01:00 96 25 132/82 (99) 100 10/05/17 00:00 98 10/05/17 00:00 72 22 116/66 (83) 98 10/05/17 00:00 98.7 72 22 116/66 (83) 98 10/04/17 23:12 84 25 132/98 (109) 100 10/04/17 22:00 96 10/04/17 20:00 84 10/04/17 20:00 98.3 128 42 140/89 (106) 98 10/04/17 18:00 98.1 126 34 140/89 (106) 100 10/04/17 18:00 96 I/O 10/04/17 10/04/17 10/04/17 10/05/178/18 4/8/18 07:00 15:00 23:00 07:00 15:00 23:00 Intake Total 900 ml 260 ml 825 ml 2654 ml Output Total 2300 ml 1250 ml 2400 ml Balance -1400 ml 260 ml -425 ml 254 ml Intake Oral 720 ml 800 ml IV Total 900 ml 260 ml 105 ml 1854 ml Output Urine Total 2300 ml 1250 ml 2400 ml # Bowel Movements 12 12 Result Diagram: 10/04/17 0440 10/05/17 1530 Imaging Last Impressions Chest X-Ray 10/02/17 0000 Signed Impressions: Service Date/Time: September 09:46 - CONCLUSION: The lungs are clear. Dennys Rivas MD Head CT 10/01/17 1237 Signed Impressions: Service Date/Time: Sunday, October 01, 2017 14:40 - CONCLUSION: 1. Negative noncontrast CT brain. Dennys Rivas MD Abdomen/Pelvis CT 10/01/17 0000 Signed Impressions: Service Date/Time: Sunday, October 01, 2017 14:44 - CONCLUSION: 1. Steatosis the liver. 2. Possible wall thickening and a 6 cm segment of mid sigmoid colon without bowel distention; this is incompletely evaluated. Cannot exclude colonic lesion. If the patient has had not had a recent colonoscopy, may consider such. Dennys Rivas MD Objective Remarks GENERAL: thin appearing male patient, appears comfortable CARDIOVASCULAR: Regular rate and rhythm. RESPIRATORY: No accessory muscle use. Clear to auscultation. Breath sounds equal bilaterally. GASTROINTESTINAL: Abdomen soft, some discomfort w deep palpation on the right lower quadrant. MUSCULOSKELETAL: moves extremities NEUROLOGICAL: Awake and alert. Normal speech. A/P Problem List: (1) Intractable vomiting ICD Code: R11.10 - Vomiting, unspecified Status: Acute (2) Hyponatremia ICD Code: E87.1 - Hypo-osmolality and hyponatremia Status: Acute (3) Hypomagnesemia ICD Code: E83.42 - Hypomagnesemia Status: Acute (4) Hypokalemia ICD Code: E87.6 - Hypokalemia (5) Dehydration ICD Code: E86.0 - Dehydration Status: Acute (6) Alcoholism ICD Code: F10.20 - Alcohol dependence, uncomplicated Assessment and Plan This is a 57-year-old alcoholic who presented with intractable emesis, subjective fever and chills, dizziness and near syncopal episode at home. Pt w hx of EtOH abuse, went into full blown DT requiring transfer to ICU and precedex gtt. Now pt is off gtt and doing much better. Intractable emesis, lightheadedness and dizziness suspect secondary to chronic alcoholism versus dehydration - Head CT reviewed, negative. - Continue IV fluids. Pt is + for C. Diff and continues to have diarrhea - no n/v today. Zofran available PRN. Transaminase Chronic alcoholism History of acute pancreatitis Microcytic, hypochromic anemia suspect secondary to iron deficiency versus blood loss versus dilutional ? c. Diff colitis - Lipase level 376, no acute pancreatitis. - Abdominal CT showing steatosis of the liver. Possible wall thickening and a 6 cm segment of mid sigmoid colon without bowel distention. Cannot exclude colonic lesion. - GI following and plans for EGD/colonoscopy in AM. - Continue IV fluids, ensure hydration. on po vanco. If diarrhea worsening, consult ID. - s/p 1 unit PRBC. Hb was 8.0 yesterday - Iron low. s/p iron sucralose IV. Follow clinically. TSH wnl Hypokalemia Hypomagnesium Hyponatremia - All suspect secondary to nausea and vomiting versus alcoholism versus poor p.o. intake - on electrolyte protocol. Mg today 1.4 Replace. K and phos back to normal. Continue to monitor closely. Alcoholism - on CIWA protocol. on multivitamin, folic acid and thiamine. Seizure precautions. - Education given about alcoholic cessation. s/p precedex gtt and ICU transfer. DVT prophylaxis: SCDs. Discharge Planning EGD/colonoscopy in AM transfer to med/surg later today post Mg replacement Problem Qualifiers (1) Intractable vomiting: Qualified Codes: R11.2 - Nausea with vomiting, unspecified Radha Maurer MD Oct 05, 2017 16:36
[2017-10-05] MEDS: MULTIVITAMIN INJ 10 ML, FOLIC ACID INJ 1 MG in SODIUM CHLORID 0.9% 500 ML INJ 500 ML IV SCH (16:59)
[2017-10-06] VITALS: BP 119/80; PULSE 78; RESP 16; TEMP 98.7; O2SAT 95
[2017-10-06 04:00] VITALS: BP 121/78; PULSE 81; RESP 16; TEMP 98.4; O2SAT 94
[2017-10-06] MEDS: chlordiazePOXIDE 25 MG CAP PO SCH ×3 (05:44→21:34)
[2017-10-06] MEDS: POTASSIUM CHLORIDE INJ 10 MEQ in DEXT 5%-NACL 0.9% 1000 ML INJ 1,000 ML IV SCH (06:04)
--- NOTE | 2017-10-06 08:13 | GIPROC ---
[facility] [address] [place] [address], [id number] EGD PROCEDURE REPORT EXAM DATE: 10/06/2017 PATIENT NAME: Shawn Steven MR #: [id number] BIRTHDATE: 1960 ATTENDING: Rena Redmond MD ORDER #: [id number] CHIEF INTERNAL AUDITOR: Shelly Durham and Tali Monson STATUS: inpatient INDICATIONS: The patient is a 57 yr old male here for an EGD due to anemai, gi bleeding, diarrhea PROCEDURE PERFORMED: EGD w/ biopsy MEDICATIONS: None and Per Anesthesia. TOPICAL ANESTHETIC: none CONSENT: The patient understands the risks and benefits of the procedure and understands that these risks include, but are not limited to: sedation, allergic reaction, infection, perforation and/or bleeding. Alternative means of evaluation and treatment include, among others: physical exam, x-rays, and/or surgical intervention. The patient elects to proceed with this endoscopic procedure. medical equipment was checked for proper function. Hand hygiene and appropriate measures for infection prevention was taken. After the risks, benefits and alternatives of the procedure were thoroughly explained, Informed consent was verified, confirmed and timeout was successfully executed by the treatment team. The patient was anesthetized with topical anesthesia and the EC-[id number] (Pedi C) endoscope was introduced through the mouth and advanced to the second portion of the duodenum. Retroflexed views revealed a hiatal hernia The gastroscope was then slowly withdrawn and removed. Duodenitis second portion-biopsy gastritis antrum-biopsy Schatzki's ring-biopsy. ADVERSE EVENTS: There were no complications. IMPRESSIONS: 1. Duodenitis second portion-biopsy gastritis antrum-biopsy Schatzki's ring-biopsy 2. Retroflexed views revealed a hiatal hernia RECOMMENDATIONS: 1. Await biopsy results. Biopsy results will not be ready for 7-10 days. If you don't hear from us in two weeks, call our office for biopsy results. 2. Anti-reflux regimen 3. Continue PPI 4. Avoid NSAIDS PATIENT CONDITION: stable DISPOSITION: Inpatient REPEAT EXAM: Return 1 year EGD Rena Redmond MD eSigned: Rena Redmond MD 10/06/2017 8:13 AM cc:
--- NOTE | 2017-10-06 08:15 | GIPROC ---
[facility] [address] [place] [address], [id number] COLONOSCOPY PROCEDURE REPORT EXAM DATE: 10/06/2017 PATIENT NAME: Shawn Steven MR #: [id number] BIRTHDATE: 1960 ENDOSCOPIST: Rena Redmond MD ORDER #: [id number] SILL WORKER: Shelly Durham and Tali Monson STATUS: inpatient INDICATIONS: The patient is a 57 yr old male here for a colonoscopy due to anemia, gi bleeding, diarrhea PROCEDURE PERFORMED: Colonoscopy with biopsy MEDICATIONS: None and Per Anesthesia. PREP QUALITY: fair PREP TYPE:Other: ESTIMATED BLOOD LOSS: None CONSENT: The patient understands the risks and benefits of the procedure and understands that these risks include, but are not limited to: sedation, allergic reaction, infection, perforation and/or bleeding. Alternative means of evaluation and treatment include, among others: physical exam, x-rays, and/or surgical intervention. The patient elects to proceed with this endoscopic procedure. medical equipment was checked for proper function. Hand hygiene and appropriate measures for infection prevention was taken. After the risks, benefits and alternatives of the procedure were thoroughly explained, Informed consent was verified, confirmed and timeout was successfully executed by the treatment team. A digital exam revealed external hemorrhoids The Pentax EC-[id number] endoscope was introduced through the anus and advanced to the cecum, which was identified by both the appendix and ileocecal valve. The instrument was then slowly withdrawn as the colon was fully examined. COLON FINDINGS: Diverticulosis sigmoid,descending random biopsy from ascending and descending lipoma descending -biopsy -pillow sign present. Retroflexed views revealed internal hemorrhoids and Retroflexed views revealed medium internal hemorrhoids The scope was then completely withdrawn from the patient and the procedure terminated. PROCEDURE WITHDRAWAL TIME:6minutes ADVERSE EVENTS: There were no complications. IMPRESSIONS: 1. Diverticulosis sigmoid,descending random biopsy from ascending and descending lipoma descending -biopsy -pillow sign present 2. Retroflexed views revealed internal hemorrhoids 3. Retroflexed views revealed medium internal hemorrhoids 4. Revealed external hemorrhoids RECOMMENDATIONS: 1. Await biopsy results. Biopsy results will not be ready for 7-10 days. If you don't hear from us in two weeks, call our office for results. 2. Benefiber 2 tsp daily 3. Probiotics from any [facility] or health food store RECALL: Return 10 years Colonoscopy Rena Redmond MD eSigned: Rena Redmond MD 10/06/2017 8:15 AM cc: PATIENT NAME: Shawn Steven MR#: [id number]
[2017-10-06] MEDS: SODIUM CHLORIDE 0.9% FLUSH 10 ML FLUSH IV FLUSH SCH ×2 (08:36→21:34)
[2017-10-06] MEDS: VANCOMYCIN 25 MG/ML SOLN 100 ML BOTTLE PO SCH ×4 (08:36→21:30)
[2017-10-06] MEDS: PANTOPRAZOLE SODIUM 40 MG VIAL IV PUSH SCH ×2 (08:54→21:34)
[2017-10-06] MEDS: THIAMINE HCL 100 MG TAB PO SCH (08:55)
[2017-10-06 11:18] LABS: AUTOMATED NEUTROPHIL # 7.8 TH/MM3 (1.8-7.7); BASOPHIL # 0.2 TH/MM3 (0-0.2); EOSINOPHIL # 0.4 TH/MM3 (0-0.4); EOSINOPHIL % 4.2 % (0.0-4.0); HEMATOCRIT 29.5 % (39.0-51.0); HEMOGLOBIN 8.8 GM/DL (13.0-17.0); LYMPH % 8.2 % (9.0-44.0); LYMPHOCYTE # 0.8 TH/MM3 (1.0-4.8); MEAN CELL VOLUME 76.5 FL (80.0-100.0); MEAN CORPUSCULAR HEMOGLOBIN 22.9 PG (27.0-34.0); MEAN PLATELET VOLUME 7.6 FL (7.0-11.0); MONO % 7.2 % (0.0-8.0); MONOCYTE # 0.7 TH/MM3 (0-0.9); NEUT % 78.4 % (16.0-70.0); PLATELET COUNT 244 TH/MM3 (150-450); RED BLOOD COUNT 3.86 MIL/MM3 (4.50-5.90); RED CELL DISTRIBUTION WIDTH 24.3 % (11.6-17.2); WHITE BLOOD COUNT 9.9 TH/MM3 (4.0-11.0)
[2017-10-06 11:27] LABS: MEAN CORPUSCULAR HGB CONC 29.9 % (32.0-36.0)
[2017-10-06 11:32] LABS: CHLORIDE 108 MEQ/L (98-107); SODIUM (NA) 140 MEQ/L (136-145)
[2017-10-06 11:35] LABS: BLOOD UREA NITROGEN LESS THAN 1 MG/DL (7-18); CALCIUM 8.4 MG/DL (8.5-10.1); GLUCOSE,RANDOM 100 MG/DL (74-106)
[2017-10-06 11:38] LABS: CREATININE 0.65 MG/DL (0.60-1.30); GLOMERULAR FILTRATION RATE 126 ML/MIN (>89)
[2017-10-06 11:54] LABS: OVALOCYTES 1+ (NORMAL)
[2017-10-06 12:58] VITALS: BP 124/80; PULSE 82; RESP 15; TEMP 97.1; O2SAT 100
[2017-10-06 13:42] LABS: MAGNESIUM 1.7 MG/DL (1.5-2.5)
[2017-10-06 13:46] LABS: PHOSPHORUS 3.2 MG/DL (2.5-4.9)
[2017-10-06 17:41] VITALS: BP 121/82; PULSE 76; RESP 18; TEMP 97.3; O2SAT 95
--- NOTE | 2017-10-06 18:12 | HHI.PR ---
Subjective Remarks Pt states that he had 3 BMs today, 2 of them were very watery and the third one seems to be a little formed. he said in the loose stools he noted to pink color. No bright red blood. No nausea or vomiting Objective Vitals Vital Signs Date Time Temp Pulse Resp B/P (MAP) Pulse Ox O2 Delivery O2 Flow Rate FiO2 10/06/17 17:41 97.3 76 18 121/82 (95) 95 10/06/17 12:58 97.1 82 15 124/80 (95) 100 10/06/17 08:48 69 16 132/69 (90) 95 10/06/17 08:35 68 16 138/72 (94) 95 10/06/17 08:20 97.3 72 16 142/73 (96) 97 10/06/17 04:00 98.4 81 16 121/78 (92) 94 10/06/17 00:00 98.7 78 16 119/80 (93) 95 10/06/17 00:00 98.7 78 16 119/80 (93) 95 I/O 10/05/17 10/05/17 10/05/17 10/06/17 10/06/17 10/06/17 07:00 15:00 23:00 07:00 15:00 23:00 Intake Total 2654 ml 1580 ml 4483 ml 200 ml 1000 ml Output Total 2400 ml 1900 ml Balance 254 ml -320 ml 4483 ml 200 ml 1000 ml Intake Oral 800 ml 1580 ml 2500 ml 1000 ml IV Total 1854 ml 1983 ml Other 200 ml Output Urine Total 2400 ml 1900 ml # Voids 5 4 # Bowel Movements 12 10 8 6 Result Diagram: 10/06/17 1050 10/06/17 1050 Imaging Last Impressions Chest X-Ray 10/02/17 0000 Signed Impressions: Service Date/Time: September 09:46 - CONCLUSION: The lungs are clear. Dennys Rivas MD Head CT 10/01/17 1237 Signed Impressions: Service Date/Time: Sunday, October 01, 2017 14:40 - CONCLUSION: 1. Negative noncontrast CT brain. Dennys Rivas MD Abdomen/Pelvis CT 10/01/17 0000 Signed Impressions: Service Date/Time: Sunday, October 01, 2017 14:44 - CONCLUSION: 1. Steatosis the liver. 2. Possible wall thickening and a 6 cm segment of mid sigmoid colon without bowel distention; this is incompletely evaluated. Cannot exclude colonic lesion. If the patient has had not had a recent colonoscopy, may consider such. Dennys Rivas MD Objective Remarks GENERAL: thin appearing male patient, appears comfortable CARDIOVASCULAR: Regular rate and rhythm. RESPIRATORY: No accessory muscle use. Clear to auscultation. Breath sounds equal bilaterally. GASTROINTESTINAL: Abdomen soft, some discomfort w deep palpation on the right lower quadrant. MUSCULOSKELETAL: moves extremities NEUROLOGICAL: Awake and alert. Normal speech. A/P Problem List: (1) Intractable vomiting ICD Code: R11.10 - Vomiting, unspecified Status: Acute (2) Hyponatremia ICD Code: E87.1 - Hypo-osmolality and hyponatremia Status: Acute (3) Hypomagnesemia ICD Code: E83.42 - Hypomagnesemia Status: Acute (4) Hypokalemia ICD Code: E87.6 - Hypokalemia (5) Dehydration ICD Code: E86.0 - Dehydration Status: Acute (6) Alcoholism ICD Code: F10.20 - Alcohol dependence, uncomplicated Assessment and Plan This is a 57-year-old alcoholic who presented with intractable emesis, subjective fever and chills, dizziness and near syncopal episode at home. Pt w hx of EtOH abuse, went into full blown DT requiring transfer to ICU and precedex gtt. Now pt is off gtt and doing much better. Intractable emesis, lightheadedness and dizziness suspect secondary to chronic alcoholism versus dehydration - Head CT reviewed, negative. - Continue IV fluids. Pt is + for C. Diff and continues to have diarrhea but it seems that he might be improving. continue to monitor BM and hopefully by tomorrow they start forming. - no n/v today. Zofran available PRN. Transaminase Chronic alcoholism History of acute pancreatitis Microcytic, hypochromic anemia suspect secondary to iron deficiency versus blood loss versus dilutional c. Diff colitis - Lipase level 376, no acute pancreatitis. - Abdominal CT showing steatosis of the liver. Possible wall thickening and a 6 cm segment of mid sigmoid colon without bowel distention. Cannot exclude colonic lesion. - GI following s/p EGD/colonoscopy. EGD shows duodenitis, schatzki ring, hiatal hernia. Colonoscopy showed diverticulosis. - Continue IV fluids, ensure hydration. on po vanco. If diarrhea worsening, consult ID. - s/p 1 unit PRBC. Hb was 8.8 - Iron low. s/p iron sucralose IV. Follow clinically. TSH wnl Hypokalemia Hypomagnesium Hyponatremia - All suspect secondary to nausea and vomiting versus alcoholism versus poor p.o. intake replace as needed. Alcoholism - on CIWA protocol. on multivitamin, folic acid and thiamine. Seizure precautions. - Education given about alcoholic cessation. s/p precedex gtt DVT prophylaxis: SCDs. Discharge Planning If stools frequency continue to decrease and are forming, anticipate d/c in AM if ok w GI Problem Qualifiers (1) Intractable vomiting: Qualified Codes: R11.2 - Nausea with vomiting, unspecified Radha Maurer MD Oct 06, 2017 18:12
[2017-10-06] MEDS ORDERED: POTASSIUM CHLORIDE 20 MEQ CONTROLLED RELEASE TAB PO ONE (19:00)
[2017-10-06 20:00] VITALS: BP 119/71; PULSE 88; RESP 18; TEMP 96.9; O2SAT 98
[2017-10-07] VITALS: BP 111/59; PULSE 87; RESP 18; TEMP 97.8; O2SAT 99
[2017-10-07] MEDS: chlordiazePOXIDE 25 MG CAP PO SCH ×2 (06:13→13:29)
[2017-10-07 07:43] LABS: HEMATOCRIT 28.5 % (39.0-51.0); HEMOGLOBIN 8.7 GM/DL (13.0-17.0)
[2017-10-07 07:54] LABS: CHLORIDE 108 MEQ/L (98-107); SODIUM (NA) 141 MEQ/L (136-145)
[2017-10-07 08:00] VITALS: BP 103/67; PULSE 73; RESP 16; TEMP 98.5; O2SAT 98
[2017-10-07 08:02] LABS: CALCIUM 8.2 MG/DL (8.5-10.1)
[2017-10-07 08:03] LABS: ALBUMIN 2.3 GM/DL (3.4-5.0); BICARBONATE 25.5 MEQ/L (21.0-32.0); BLOOD UREA NITROGEN 3 MG/DL (7-18); GLUCOSE,RANDOM 82 MG/DL (74-106)
[2017-10-07 08:06] LABS: ALT (GPT) 17 U/L (12-78); AST (GOT) 21 U/L (15-37); CREATININE 0.68 MG/DL (0.60-1.30); GLOMERULAR FILTRATION RATE 120 ML/MIN (>89)
[2017-10-07 08:07] LABS: TOTAL BILIRUBIN ADULT 0.9 MG/DL (0.2-1.0)
[2017-10-07 08:08] LABS: TOTAL PROTEIN 5.5 GM/DL (6.4-8.2)
[2017-10-07 08:09] LABS: ALKALINE PHOSPHATASE 80 U/L (45-117)
[2017-10-07] MEDS: SODIUM CHLORIDE 0.9% FLUSH 10 ML FLUSH IV FLUSH SCH (09:02)
[2017-10-07] MEDS: VANCOMYCIN 25 MG/ML SOLN 100 ML BOTTLE PO SCH ×2 (09:02→13:29)
[2017-10-07] MEDS: PANTOPRAZOLE SODIUM 40 MG VIAL IV PUSH SCH (09:03)
[2017-10-07] MEDS: THIAMINE HCL 100 MG TAB PO SCH (09:03)
[2017-10-07 12:00] VITALS: BP 132/80; PULSE 65; RESP 15; TEMP 95.8; O2SAT 91
--- NOTE | 2017-10-07 12:32 | HHI.DCPOC ---
Discharge Care Plan Diagnosis: (1) C. difficile diarrhea (2) Dehydration (3) intractable emesis (4) Alcoholism (5) Duodenitis (6) Gastritis (7) Schatzki's ring Goals to Promote Your Health * To prevent worsening of your condition and complications * To maintain your health at the optimal level Directions to Meet Your Goals Take your medications as prescribed Follow your dietary instruction Follow activity as directed Keep your appointments as scheduled Take your immunizations and boosters as scheduled If your symptoms worsen call your PCP, if no PCP go to Urgent Care Center or Emergency Room Smoking is Dangerous to Your Health. Avoid second hand smoke Call the 24-hour hour crisis hotline for domestic abuse at Maciej Escalante MD Oct 07, 2017 12:32
[2017-10-07] MEDS ORDERED: METR1TAB76 PO (13:18)
[2017-10-07] MEDS ORDERED: OFFICE MEDICATION PO (13:23)
--- NOTE | 2017-10-07 13:28 | HHI.DS ---
Discharge Summary Admission Date Oct 02, 2017 at 10:46 Discharge Date: Oct 07, 2017 Admitting Diagnosis Severe dehydration, severe hypokalemia, vomiting (1) Hyponatremia ICD Code: E87.1 - Hypo-osmolality and hyponatremia Status: Acute (2) Hypomagnesemia ICD Code: E83.42 - Hypomagnesemia Status: Acute (3) Hypokalemia ICD Code: E87.6 - Hypokalemia (4) Dehydration ICD Code: E86.0 - Dehydration Status: Acute (5) Alcoholism ICD Code: F10.20 - Alcohol dependence, uncomplicated Procedures Colonoscopy Brief History - From Admission This is a 57-year-old male patient with a known medical history of alcoholism, hypertension, COPD and pancreatitis who presented to the ED with complaints of worsening dizziness, nausea and vomiting, generalized weakness and near syncopal episode at home. Patient states for the last 3 days he has been feeling increasingly worse with subjective fever and chills, nausea and vomiting , and inability to tolerate anything by mouth. Patient also states that every time he stands up he feels dizzy and "like he is going to pass out". Denies any loss of consciousness or hitting his head. He does admit to drinking 6-8 beers every day since his teen years. Last drink was 3 days ago due to inability to tolerate anything by mouth. Patient did complain of right ear pain which has not resolved since presentation. Denies any tendinitis or lack of hearing. Patient does not have a PCP. Does not take any prescribed medications. Patient presented with white blood cell 15.1, potassium 2.2, sodium 126, magnesium 1.0 and total bilirubin 2.2. Anemia was noted with hemoglobin 9.4/hematocrit 30.8. Patient denies any hematozemia or black stools. Denies any recent diarrhea. Head CT negative. Abdominal CT performed in ED with pending results. CBC/BMP: 10/07/17 0710 10/07/17 0710 Significant Findings Laboratory Tests Test 10/04/17 15:33 10/05/17 06:00 10/05/17 15:30 10/06/17 10:50 Blood Urea Nitrogen LESS THAN 1 MG/DL (7-18) 1 MG/DL (7-18) LESS THAN 1 MG/DL (7-18) LESS THAN 1 MG/DL (7-18) Random Glucose 115 MG/DL (74-106) Calcium Level 7.3 MG/DL (8.5-10.1) 7.3 MG/DL (8.5-10.1) 8.0 MG/DL (8.5-10.1) 8.4 MG/DL (8.5-10.1) Potassium Level 3.3 MEQ/L (3.5-5.1) 3.4 MEQ/L (3.5-5.1) Protein Corrected Calcium 7.6 MG/DL (8.5-10.1) 8.2 MG/DL (8.5-10.1) Creatinine 0.58 MG/DL (0.60-1.30) Total Protein 5.4 GM/DL (6.4-8.2) Magnesium Level 1.4 MG/DL (1.5-2.5) Chloride Level 108 MEQ/L (98-107) 108 MEQ/L (98-107) Red Blood Count 3.86 MIL/MM3 (4.50-5.90) Hemoglobin 8.8 GM/DL (13.0-17.0) Hematocrit 29.5 % (39.0-51.0) Mean Corpuscular Volume 76.5 FL (80.0-100.0) Mean Corpuscular Hemoglobin 22.9 PG (27.0-34.0) Mean Corpuscular Hemoglobin Concent 29.9 % (32.0-36.0) Red Cell Distribution Width 24.3 % (11.6-17.2) Neutrophils (%) (Auto) 78.4 % (16.0-70.0) Lymphocytes (%) (Auto) 8.2 % (9.0-44.0) Eosinophils (%) (Auto) 4.2 % (0.0-4.0) Neutrophils # (Auto) 7.8 TH/MM3 (1.8-7.7) Lymphocytes # (Auto) 0.8 TH/MM3 (1.0-4.8) Ovalocytes 1+ (NORMAL) Test 10/07/17 07:10 Hemoglobin 8.7 GM/DL (13.0-17.0) Hematocrit 28.5 % (39.0-51.0) Blood Urea Nitrogen 3 MG/DL (7-18) Total Protein 5.5 GM/DL (6.4-8.2) Albumin 2.3 GM/DL (3.4-5.0) Calcium Level 8.2 MG/DL (8.5-10.1) Chloride Level 108 MEQ/L (98-107) PE at Discharge Middle-aged white male, lying in bed, no acute distress, abdomen soft, nontender , nondistended Hospital Course Patient was admitted, started on IV fluids. He eventually needed a Precedex infusion for his alcohol withdrawal and was successfully transitioned to p.o. chlordiazepoxide. GI was consulted, performed colonoscopy which showed diverticulosis and hemorrhoids. EGD was performed which showed duodenitis and gastritis as well as a Schatzki ring. Patient turned up to be C. difficile positive, will start vancomycin with significant improvement. Patient has met maximal benefit from hospitalization is clinically stable for discharge from primary and GI standpoint. Pt Condition on Discharge: Stable Discharge Disposition: Discharge Home Discharge Time: > 30 minutes Discharge Instructions DIET: Follow Instructions for: Liver Disease Diet Activities you can perform: Weight Bearing as Pierce Follow up Referrals: PCP Follow-up - 1 Week New Medications: Metronidazole (Metronidazole) 500 Mg Tab 500 MG PO TID for Infection, #30 TAB 0 Refills Miscellaneous (Office Medication) Misc 5 MG PO DIRECTED for Alcohol Detox, #15 CAP chlordiazepoxide 5 mg cap 1 cap po TID for 2 days, then 1 cap BID for 2 days, then 1 cap daily afterwards Continued Medications: Folic Acid (Folic Acid) 1 Mg Tablet 1 MG PO DAILY for Vitamin, #30 TAB Potassium Chloride Microencaps (Potassium Chloride Microencaps) 20 Meq Tab 20 MEQ PO BID for Hypokalemia, #10 TAB Thiamine HCl (Gnp Vitamin B-1) 100 Mg Tab 100 MG PO DAILY for Vitamin, #30 TAB Maciej Escalante MD Oct 07, 2017 13:28
[2017-10-07] MEDS ORDERED: PANT40TA3 PO (13:31)
== END 2017-10-07 14:30 | disposition home or self-care (01) | DRG 641 ==
LOC: PHED 12:06 → PHEDA 15:39 → PHICU 18:19 → OBSVTOIN 10-02 10:46 → PH3A 10-05 19:45
PROVIDERS: ADMIT Hospitalist; ATTEND Hospitalist
PROC: 30233N1 Transfusion of Nonautologous Red Blood Cells into Peripheral Vein, Percutaneous Approach (ICD-10-PCS; 2017-10-02)
PROC: 3E033GC Introduction of Other Therapeutic Substance into Peripheral Vein, Percutaneous Approach (ICD-10-PCS; 2017-10-02)
PROC: 0DB58ZX Excision of Esophagus, Via Natural or Artificial Opening Endoscopic, Diagnostic (ICD-10-PCS; 2017-10-06)
PROC: 0DBK8ZX Excision of Ascending Colon, Via Natural or Artificial Opening Endoscopic, Diagnostic (ICD-10-PCS; 2017-10-06)
PROC: 0DBM8ZX Excision of Descending Colon, Via Natural or Artificial Opening Endoscopic, Diagnostic (ICD-10-PCS; 2017-10-06)
PROC: 0DB98ZX Excision of Duodenum, Via Natural or Artificial Opening Endoscopic, Diagnostic (ICD-10-PCS; principal; 2017-10-06 07:49)
PROC: 0DB68ZX Excision of Stomach, Via Natural or Artificial Opening Endoscopic, Diagnostic (ICD-10-PCS; 2017-10-06 07:49)
DX: E86.0 Dehydration (principal); A04.72 Enterocolitis due to Clostridium difficile, not specified as recurrent; F10.231 Alcohol dependence with withdrawal delirium; E46 Unspecified protein-calorie malnutrition; E87.1 Hypo-osmolality and hyponatremia; E83.42 Hypomagnesemia; K22.2 Esophageal obstruction; E87.6 Hypokalemia; R11.10 Vomiting, unspecified; D63.8 Anemia in other chronic diseases classified elsewhere; F17.210 Nicotine dependence, cigarettes, uncomplicated; K29.80 Duodenitis without bleeding; K29.70 Gastritis, unspecified, without bleeding; K44.9 Diaphragmatic hernia without obstruction or gangrene; K57.30 Diverticulosis of large intestine without perforation or abscess without bleeding; K64.8 Other hemorrhoids; K64.4 Residual hemorrhoidal skin tags; D12.4 Benign neoplasm of descending colon; K21.9 Gastro-esophageal reflux disease without esophagitis; I10 Essential (primary) hypertension; Z68.21 Body mass index [BMI] 21.0-21.9, adult
CPT/HCPCS: 36430; 70450; 71045; 74177; 76937; 80048; 80053; 80076; 80307; 81001; 82010; 82272; 82550; 82607; 82746; 83540; 83550; 83605; 83690; 83735; 84100; 84132; 84155; 84443; 84484; 85014; 85018; 85025; 86850; 86900; 86901; 86920; 87040; 87493; 87641; 88305; 88312; 93005; 94664; 96361; 96365; 96366; 96368; 96372; 96375; C9113; G0378; J0610; J0744; J1630; J1756; J2060; J2270; J2405; J3411; J3475; J3480; J7030; J7040; J7042; J7050; P9016; Q0169; Q9967

== ENCOUNTER 2017-10-12 19:36 | Emergency (ER) | payer SELFPAY ==
[~2017-10-12] VITALS: Ht 177.8 cm; Wt 64.5 kg
[~2017-10-12 19:36] MED LIST changes: +METR1TAB76 PO; +OFFICE MEDICATION PO; +PANT40TA3 PO
[2017-10-12 19:50] VITALS: BP 119/70; PULSE 97; RESP 18; TEMP 98.4; O2SAT 98
[2017-10-12] MEDS ORDERED: SODIUM CHLORIDE 0.9% FLUSH 10 ML FLUSH IVF PRN (22:00)
--- NOTE | 2017-10-12 22:50 | RADRPT ---
EXAM DATE/TIME: 10/12/2017 22:08 [place] COMPARISON: CHEST PA & LAT, August 01, 2017, 21:11. INDICATIONS : Shortness of breath. MEDICAL HISTORY : Chronic obstructive pulmonary disease. Gastroesophageal reflux disease. Hypertension. Asthma SURGICAL HISTORY : None. ENCOUNTER: Subsequent ACUITY: 1 week PAIN SCORE: 0/10 LOCATION: Bilateral chest FINDINGS: PA and lateral views of the chest demonstrate the lungs to be symmetrically aerated without evidence of mass, infiltrate or effusion. The cardiomediastinal contours are unremarkable. Osseous structure s are intact. CONCLUSION: No acute disease. Tamir Jerry MD on October 12, 2017 at 22:48 Board Certified Radiologist. This report was verified electronically.
[2017-10-12 23:08] VITALS: BP 136/88; PULSE 86; RESP 18; O2SAT 98
--- NOTE | 2017-10-12 23:20 | PD ---
HPI . Peripheral edema Chief Complaint: Edema Time Seen by Provider: 21:41 Travel History International Travel<30 days: No Contact w/Intl Traveler<30days: No Traveled to known affect area: No History of Present Illness HPI This patient presents with chief complaint of bilateral lower extremity edema. He states that the onset was today. He reports associated shortness of breath but states that the shortness of breath has been going on for years. He gets short of breath when he rides his bicycle. His symptoms are moderate and he is unaware of any exacerbating or relieving factors. This patient was admitted to the hospital 10/01-10/07 to the ICU for dehydration, electrolyte disorder, C. difficile. There was no edema reported that admission. He did have low protein and low albumin. Other medical problems include hypertension, COPD and alcohol abuse. PFSH Past Medical History Medical History: Denies Significant Hx Arthritis: No Asthma: Yes Blood Disorders: No Anxiety: Yes Depression: Yes Heart Rhythm Problems: No Cancer: No Cardiovascular Problems: Yes (htn, chest pain,) High Cholesterol: No Chemotherapy: No Chest Pain: Yes Congestive Heart Failure: No COPD: Yes Cerebrovascular Accident: No Diabetes: No Diminished Hearing: Yes (R EAR DIMINISHED ) Endocrine: No GERD: Yes Genitourinary: No Headaches: No Hepatitis: No Hiatal Hernia: No Hypertension: Yes Immune Disorder: No Musculoskeletal: Yes (tightness in chest) Neurologic: Yes Psychiatric: Yes Reproductive: No Respiratory: Yes Immunizations Current: Yes Migraines: No Myocardial Infarction: No Pancreatitis: Yes Radiation Therapy: No Seizures: No Sleep Apnea: No Thyroid Disease: No Ulcer: No Tetanus Vaccination: > 5 Years Influenza Vaccination: Yes Past Surgical History Abdominal Surgery: No Appendectomy: No Cardiac Surgery: No Cholecystectomy: No Ear Surgery: No Endocrine Surgery: No Eye Surgery: Yes (rt eye laser sugery 1999) Genitourinary Surgery: No Gynecologic Surgery: No Oral Surgery: Yes (top implanted front dentures) Thoracic Surgery: No Other Surgery: Yes (eft wrist and left ankle) Social History Alcohol Use: Yes (DRANK BEER 6 WEEKS AGO) Tobacco Use: Yes (JUST BEFORE COMING IN TO [facility]D.) Substance Use: No Allergies-Medications (Allergen,Severity, Reaction): Coded Allergies: No Known Allergies (Verified Allergy, Unknown, 10/12/17) Reported Meds & Prescriptions Reported Meds & Active Scripts Active Pantoprazole (Pantoprazole Sodium) 40 Mg Tab 40 Mg PO DAILY Office Medication (Miscellaneous Medication) Misc 5 Mg PO DIRECTED chlordiazepoxide 5 mg cap 1 cap po TID for 2 days, then 1 cap BID for 2 days, then 1 cap daily afterwards Metronidazole 500 Mg Tab 500 Mg PO TID Gnp Vitamin B-1 (Thiamine HCl) 100 Mg Tab 100 Mg PO DAILY Folic Acid 1 Mg Tablet 1 Mg PO DAILY Potassium Chloride Microencaps 20 Meq Tab 20 Meq PO BID Review of Systems Except as stated in HPI: all other systems reviewed are Neg General / Constitutional: Positive: Other (Frequent falls), No: Fever, Chills Cardiovascular: No: Chest Pain or Discomfort Respiratory: Positive: Shortness of Breath Musculoskeletal: Positive: Edema Physical Exam Narrative GENERAL: Awake and alert. SKIN: warm/dry. HEAD: Normocephalic. Atraumatic. No evidence of recent trauma to his head. EYES: Pupils equal and round. No scleral icterus. No injection or drainage. ENT: No nasal bleeding or discharge. Mucous membranes pink and moist. NECK: Trachea midline. Full range of motion without pain.. CARDIOVASCULAR: Regular rate and rhythm. Heart sounds are normal. RESPIRATORY: No accessory muscle use. Clear to auscultation. Breath sounds equal bilaterally. GASTROINTESTINAL: Abdomen soft. Nontender. Bowel sounds present. Nondistended. MUSCULOSKELETAL: No obvious deformities. 2+ pretibial pitting edema. NEUROLOGICAL: Awake and alert. No obvious cranial nerve deficits. Motor grossly within normal limits. Normal speech. PSYCHIATRIC: Appropriate mood and affect; insight and judgment normal. Data Data Last Documented VS Vital Signs Date Time Temp Pulse Resp B/P (MAP) Pulse Ox O2 Delivery O2 Flow Rate FiO2 10/12/17 23:08 86 18 136/88 (104) 98 Room Air 10/12/17 19:50 98.4 Orders Orders Complete Blood Count With Diff (10/12/17 21:52) Comprehensive Metabolic Panel (10/12/17 21:52) B-Type Natriuretic Peptide (10/12/17 21:52) Magnesium (Mg) (10/12/17 21:52) Troponin I (10/12/17 21:52) Iv Access Insert/Monitor (10/12/17 21:52) Chest, Pa & Lat (10/12/17 21:52) Sodium Chloride 0.9% Flush (Ns Flush) (10/12/17 22:00) Labs Laboratory Tests Test 10/12/17 23:00 10/13/17 00:18 Blood Urea Nitrogen 4 MG/DL Creatinine 0.62 MG/DL Random Glucose 82 MG/DL Total Protein 6.6 GM/DL Albumin 2.5 GM/DL Calcium Level 8.6 MG/DL Magnesium Level 1.5 MG/DL Alkaline Phosphatase 83 U/L Aspartate Amino Transf (AST/SGOT) 36 U/L Alanine Aminotransferase (ALT/SGPT) 17 U/L Total Bilirubin 0.5 MG/DL Sodium Level 142 MEQ/L Potassium Level 3.6 MEQ/L Chloride Level 109 MEQ/L Carbon Dioxide Level 25.4 MEQ/L Anion Gap 8 MEQ/L Estimat Glomerular Filtration Rate 133 ML/MIN Troponin I LESS THAN 0.02 NG/ML B-Type Natriuretic Peptide 75 PG/ML White Blood Count 9.5 TH/MM3 Red Blood Count 3.96 MIL/MM3 Hemoglobin 9.5 GM/DL Hematocrit 31.1 % Mean Corpuscular Volume 78.5 FL Mean Corpuscular Hemoglobin 24.0 PG Mean Corpuscular Hemoglobin Concent 30.5 % Red Cell Distribution Width 27.0 % Platelet Count 306 TH/MM3 Mean Platelet Volume 8.0 FL Neutrophils (%) (Auto) 70.8 % Lymphocytes (%) (Auto) 15.7 % Monocytes (%) (Auto) 7.5 % Eosinophils (%) (Auto) 5.3 % Basophils (%) (Auto) 0.7 % Neutrophils # (Auto) 6.7 TH/MM3 Lymphocytes # (Auto) 1.5 TH/MM3 Monocytes # (Auto) 0.7 TH/MM3 Eosinophils # (Auto) 0.5 TH/MM3 Basophils # (Auto) 0.1 TH/MM3 CBC Comment AUTO DIFF MDM Medical Decision Making Medical Screen Exam Complete: Yes Emergency Medical Condition: Yes Differential Diagnosis Differential diagnosis includes but is not limited to CHF, malnutrition with low protein and low albumin Narrative Course This patient presents with chief complaint of edema of both legs. His lungs are clear. He does have 2+ pretibial pitting edema. Last Impressions Chest X-Ray 10/12/17 2167 Signed Impressions: Service Date/Time: Thursday, October 12, 2017 22:08 - CONCLUSION: No acute disease. Tamir Jerry MD The chest x-ray was independently reviewed by me. BMP Diagram 10/12/17 23:00 Total Protein 6.6 #, Albumin 2.5 L, Calcium Level 8.6, Magnesium Level 1.5, Alkaline Phosphatase 83, Aspartate Amino Transf (AST/SGOT) 36, Alanine Aminotransferase (ALT/SGPT) 17, Total Bilirubin 0.5 BNP 75 This patient has edema of his legs but no evidence of pulmonary edema. CBC Diagram 10/13/17 00:18 He is stable for discharge to home. Diagnosis Primary Impression: Leg edema Patient Instructions: General Instructions, Leg Edema (ED) Additional Instructions: Keep legs elevated as much as possible. Consider the use of compressive stockings. Disposition: 01 DISCHARGE HOME Condition: Stable Candy Campa MD Oct 12, 2017 23:20
[2017-10-12 23:48] LABS: ALBUMIN 2.5 GM/DL (3.4-5.0); AST (GOT) 36 U/L (15-37); BICARBONATE 25.4 MEQ/L (21.0-32.0); BLOOD UREA NITROGEN 4 MG/DL (7-18); CALCIUM 8.6 MG/DL (8.5-10.1); CHLORIDE 109 MEQ/L (98-107); CREATININE 0.62 MG/DL (0.60-1.30); GLOMERULAR FILTRATION RATE 133 ML/MIN (>89); GLUCOSE,RANDOM 82 MG/DL (74-106); MAGNESIUM 1.5 MG/DL (1.5-2.5); SODIUM (NA) 142 MEQ/L (136-145)
[2017-10-12 23:53] LABS: ALKALINE PHOSPHATASE 83 U/L (45-117); ALT (GPT) 17 U/L (12-78); TOTAL BILIRUBIN ADULT 0.5 MG/DL (0.2-1.0); TOTAL PROTEIN 6.6 GM/DL (6.4-8.2); TROPONIN I LESS THAN 0.02 NG/ML (0.02-0.05)
[2017-10-13 00:45] LABS: AUTOMATED NEUTROPHIL # 6.7 TH/MM3 (1.8-7.7); BASOPHIL # 0.1 TH/MM3 (0-0.2); BASOPHIL % 0.7 % (0.0-2.0); EOSINOPHIL # 0.5 TH/MM3 (0-0.4); EOSINOPHIL % 5.3 % (0.0-4.0); HEMATOCRIT 31.1 % (39.0-51.0); HEMOGLOBIN 9.5 GM/DL (13.0-17.0); LYMPH % 15.7 % (9.0-44.0); LYMPHOCYTE # 1.5 TH/MM3 (1.0-4.8); MEAN CELL VOLUME 78.5 FL (80.0-100.0); MEAN CORPUSCULAR HGB CONC 30.5 % (32.0-36.0); MONO % 7.5 % (0.0-8.0); MONOCYTE # 0.7 TH/MM3 (0-0.9); NEUT % 70.8 % (16.0-70.0); PLATELET COUNT 306 TH/MM3 (150-450); RED BLOOD COUNT 3.96 MIL/MM3 (4.50-5.90); WHITE BLOOD COUNT 9.5 TH/MM3 (4.0-11.0)
[2017-10-13 01:10] LABS: OVALOCYTES 1+ (NORMAL)
== END 2017-10-13 01:34 | disposition home or self-care (01) ==
LOC: NEPE 19:36
DX: R60.0 Localized edema (principal); R06.02 Shortness of breath; I10 Essential (primary) hypertension; J44.9 Chronic obstructive pulmonary disease, unspecified; F41.9 Anxiety disorder, unspecified; F32.9 Major depressive disorder, single episode, unspecified; K21.9 Gastro-esophageal reflux disease without esophagitis; Z72.0 Tobacco use
CPT/HCPCS: 71046; 80053; 83735; 83880; 84484; 85025; 99284

== ENCOUNTER 2017-10-23 14:34 | Emergency (ER) | payer SELFPAY ==
[~2017-10-23] VITALS: Ht 175.3 cm; Wt 67.0 kg
[2017-10-23 14:47] VITALS: BP 113/91; PULSE 112; RESP 16; TEMP 98.3; O2SAT 97
[2017-10-23] MEDS ORDERED: SODIUM CHLOR 0.9% 1000 ML INJ 1,000 ML IV ONE ×2 (15:15)
[2017-10-23] MEDS ORDERED: IBUPROFEN 600 MG TAB PO ONE (15:15)
[2017-10-23] MEDS ORDERED: SODIUM CHLORIDE 0.9% FLUSH 10 ML FLUSH IV FLUSH PRN (15:15)
--- NOTE | 2017-10-23 15:16 | PD ---
HPI Chief Complaint: Alcohol/Drug Intoxication Time Seen by Provider: 15:06 Travel History International Travel<30 days: No Contact w/Intl Traveler<30days: No Traveled to known affect area: No History of Present Illness HPI The patient's 57 years old and arrives to the ER complaining of right otalgia. The patient reported to RN that he had chest pain for years. The patient does not mention chest pain to me. He states when he lays on the right side there is some tearing in the right thigh as well as discharge from the right ear. He states his symptoms are slightly worse today. He also notes decreased appetite for the past 3-4 days because after eating or drinking anything he vomits. Patient was discharged from here approximately approximately 2 weeks prior following a one-week stay for which the admission was based upon the complaints of nausea vomiting and chest pain. Workup revealed duodenitis and gastritis. Patient that time was complaining of right ear pain which evidently resolved during the 6 day hospital course. Patient has history of alcohol abuse. PFSH Past Medical History Arthritis: No Asthma: Yes Blood Disorders: No Anxiety: Yes Depression: Yes Heart Rhythm Problems: No Cancer: No Cardiovascular Problems: Yes (htn, chest pain,) High Cholesterol: No Chemotherapy: No Chest Pain: Yes Congestive Heart Failure: No COPD: Yes Cerebrovascular Accident: No Diabetes: No Diminished Hearing: Yes (R EAR DIMINISHED ) Endocrine: No Gastrointestinal Disorders: Yes (diarrhea) GERD: Yes Genitourinary: No Headaches: No Hepatitis: No Hiatal Hernia: No Hypertension: Yes Immune Disorder: No Musculoskeletal: Yes (tightness in chest) Neurologic: Yes Psychiatric: Yes Reproductive: No Respiratory: Yes Immunizations Current: Yes Migraines: No Myocardial Infarction: No Pancreatitis: Yes Radiation Therapy: No Seizures: No Sleep Apnea: No Thyroid Disease: No Ulcer: No Influenza Vaccination: Yes Past Surgical History Abdominal Surgery: No Appendectomy: No Cardiac Surgery: No Cholecystectomy: No Ear Surgery: No Endocrine Surgery: No Eye Surgery: Yes (rt eye laser rema 1999) Genitourinary Surgery: No Gynecologic Surgery: No Oral Surgery: Yes (top implanted front dentures) Thoracic Surgery: No Other Surgery: Yes (eft wrist and left ankle) Social History Alcohol Use: Yes (STATES 'ALCHOHOLIC') Tobacco Use: Yes (3/4 PPD) Substance Use: Yes (ALCOHOL) Allergies-Medications (Allergen,Severity, Reaction): Coded Allergies: No Known Allergies (Verified Allergy, Unknown, 10/23/17) Reported Meds & Prescriptions Reported Meds & Active Scripts Active Pantoprazole (Pantoprazole Sodium) 40 Mg Tab 40 Mg PO DAILY Office Medication (Miscellaneous Medication) Misc 5 Mg PO DIRECTED chlordiazepoxide 5 mg cap 1 cap po TID for 2 days, then 1 cap BID for 2 days, then 1 cap daily afterwards Metronidazole 500 Mg Tab 500 Mg PO TID Gnp Vitamin B-1 (Thiamine HCl) 100 Mg Tab 100 Mg PO DAILY Folic Acid 1 Mg Tablet 1 Mg PO DAILY Potassium Chloride Microencaps 20 Meq Tab 20 Meq PO BID Review of Systems Except as stated in HPI: all other systems reviewed are Neg General / Constitutional: No: Fever HENT: Positive: Rhinitis, Ear Discharge, Earache, No: Headaches, Vertigo, Lightheadedness, Sore Throat, Congestion, Nosebleed, Neck Stiffness Physical Exam Narrative GENERAL: 57-year-old male well-nourished well-developed pleasant no acute distress Vital Signs Date Time Temp Pulse Resp B/P (MAP) Pulse Ox O2 Delivery O2 Flow Rate FiO2 10/23/17 14:50 112 16 10/23/17 14:50 112 10/23/17 14:47 98.3 112 16 113/91 (98) 97 SKIN: Warm and dry. HEAD: Atraumatic. Normocephalic. EYES: Pupils equal and round. No scleral icterus. No injection or drainage. ENT: No nasal bleeding or discharge. Mucous membranes pink and moist. The right tympanic membrane is clear with clear visualization of bony landmarks. The left tympanic membrane is similar in appearance. The right and left external ears are normal in appearance. There is no mastoid tenderness on either side. The patient points to pain in the region of the ramus of the mandible on the right side which is also tender. There is no tenderness about the temporal artery either side. NECK: Trachea midline. No JVD. CARDIOVASCULAR: Mild tachycardia. Regular rhythm. RESPIRATORY: No accessory muscle use. Clear to auscultation. Breath sounds equal bilaterally. GASTROINTESTINAL: Abdomen soft, non-tender, nondistended. Hepatic and splenic margins not palpable. MUSCULOSKELETAL: Extremities without clubbing, cyanosis, or edema. No obvious deformities. NEUROLOGICAL: Awake and alert. No obvious cranial nerve deficits. Motor grossly within normal limits. Five out of 5 muscle strength in the arms and legs. Normal speech. PSYCHIATRIC: Appropriate mood and affect; insight and judgment normal. Data Data Last Documented VS Vital Signs Date Time Temp Pulse Resp B/P (MAP) Pulse Ox O2 Delivery O2 Flow Rate FiO2 10/23/17 15:20 18 98 Room Air 10/23/17 14:50 112 10/23/17 14:47 98.3 113/91 (98) Orders Orders Electrocardiogram (10/23/17 14:42) Ct Facial Bones W/O Iv Cont (10/23/17 ) Ammonia (10/23/17 15:10) Complete Blood Count With Diff (10/23/17 15:10) Comprehensive Metabolic Panel (10/23/17 15:10) Creatine Kinase (Cpk) (10/23/17 15:10) Troponin I (10/23/17 15:10) Chest, Single Ap (10/23/17 15:10) Blood Glucose (10/23/17 15:10) Ecg Monitoring (10/23/17 15:10) Iv Access Insert/Monitor (10/23/17 15:10) Oximetry (10/23/17 15:10) Sodium Chloride 0.9% Flush (Ns Flush) (10/23/17 15:15) Drug Screen, Random Urine (10/23/17 15:10) Alcohol (Ethanol) (10/23/17 15:10) Sodium Chlor 0.9% 1000 Ml Inj (Ns 1000 M (10/23/17 15:15) Sodium Chlor 0.9% 1000 Ml Inj (Ns 1000 M (10/23/17 15:15) Ibuprofen (Motrin) (10/23/17 15:15) Al-Mag Hy-Si 40-40-4 Mg/Ml Liq (Mag-Al P (10/23/17 15:45) Lidocaine 2% Viscous (Xylocaine 2% Visco (10/23/17 15:45) Potassium Chloride (Kcl) (10/23/17 16:00) Mandatory Outpatient Referral (10/23/17 16:25) Ed Discharge Order (10/23/17 16:42) Labs Laboratory Tests Test 10/23/17 15:00 White Blood Count 8.4 TH/MM3 Red Blood Count 4.41 MIL/MM3 Hemoglobin 10.4 GM/DL Hematocrit 33.2 % Mean Corpuscular Volume 75.3 FL Mean Corpuscular Hemoglobin 23.7 PG Mean Corpuscular Hemoglobin Concent 31.5 % Red Cell Distribution Width 24.1 % Platelet Count 422 TH/MM3 Mean Platelet Volume 6.6 FL Neutrophils (%) (Auto) 67.8 % Lymphocytes (%) (Auto) 22.2 % Monocytes (%) (Auto) 5.5 % Eosinophils (%) (Auto) 3.6 % Basophils (%) (Auto) 0.9 % Neutrophils # (Auto) 5.6 TH/MM3 Lymphocytes # (Auto) 1.9 TH/MM3 Monocytes # (Auto) 0.5 TH/MM3 Eosinophils # (Auto) 0.3 TH/MM3 Basophils # (Auto) 0.1 TH/MM3 CBC Comment AUTO DIFF Blood Urea Nitrogen 3 MG/DL Creatinine 0.83 MG/DL Random Glucose 92 MG/DL Total Protein 7.5 GM/DL Albumin 2.7 GM/DL Calcium Level 8.0 MG/DL Alkaline Phosphatase 188 U/L Aspartate Amino Transf (AST/SGOT) 81 U/L Alanine Aminotransferase (ALT/SGPT) 23 U/L Total Bilirubin 0.4 MG/DL Sodium Level 144 MEQ/L Potassium Level 3.2 MEQ/L Chloride Level 110 MEQ/L Carbon Dioxide Level 24.4 MEQ/L Anion Gap 10 MEQ/L Estimat Glomerular Filtration Rate 95 ML/MIN Ammonia 41 MCMOL/L Total Creatine Kinase 76 U/L Troponin I LESS THAN 0.02 NG/ML Ethyl Alcohol Level 297 MG/DL [facility] Medical Decision Making Medical Screen Exam Complete: Yes Emergency Medical Condition: Yes Medical Record Reviewed: Yes Differential Diagnosis TMJ, alcoholism, dehydration Narrative Course CBC & BMP Diagram 10/23/17 15:00 Total Protein 7.5, Albumin 2.7 L, Calcium Level 8.0 L, Alkaline Phosphatase 188 H, Aspartate Amino Transf (AST/SGOT) 81 H, Alanine Aminotransferase (ALT/SGPT) 23, Total Bilirubin 0.4 Ammonia 41 Tn < 0.02 EtOH 297 EKG: sinus, rate 110, normal axis/intervals Last Impressions Chest X-Ray 10/23/17 1510 Signed Impressions: Service Date/Time: September 15:30 - CONCLUSION: Mild diffuse interstitial prominence. Aleksandr Davidson MD Maxillofacial CT 10/23/17 0000 Signed Impressions: Service Date/Time: September 15:47 - CONCLUSION: Healed fracture and anterior displacement of the right mandibular condyle. It is deformed, almost twice the size as the contralateral normal condyle. Aleksandr Davidson MD Plain film is similar to multiple priors. Pt received IVF and Motrin. He has an old healed R mandibular ramus fracture which is the area of tenderness which he states is the area of pain. He reports the fracture occurred more than 30 years ago. A referral to cranial/ facial Dr Toney was provided, mandatory outpatient referral, which may hopefully be helpful. The workup here is unremarkable. Of note the patient did not mention to me that he has chest pain. Various times during various reassessments he introduced new complaints including dizziness and nausea all of which are chief complaints that precipitated ED visits and have been evaluated previously. She asked for food a couple times and was given some. He had no problems tolerating it. He is ready for discharge home. Diagnosis Primary Impression: Alcoholism Additional Impressions: Duodenitis Dizziness Hypokalemia Fracture of right ramus of mandible with delayed healing Qualified Codes: S02.641G - Fracture of ramus of right mandible, subsequent encounter for fracture with delayed healing Referrals: Alvarez Deleon MD call for appointment Med/Other Pt SpecificInfo: No Change to Meds Disposition: 01 DISCHARGE HOME Condition: Stable Minh Orozco MD Oct 23, 2017 15:16
[2017-10-23 15:20] VITALS: RESP 18; O2SAT 98
[2017-10-23 15:23] LABS: AUTOMATED NEUTROPHIL # 5.6 TH/MM3 (1.8-7.7); BASOPHIL # 0.1 TH/MM3 (0-0.2); BASOPHIL % 0.9 % (0.0-2.0); EOSINOPHIL # 0.3 TH/MM3 (0-0.4); EOSINOPHIL % 3.6 % (0.0-4.0); HEMATOCRIT 33.2 % (39.0-51.0); HEMOGLOBIN 10.4 GM/DL (13.0-17.0); LYMPH % 22.2 % (9.0-44.0); LYMPHOCYTE # 1.9 TH/MM3 (1.0-4.8); MEAN CELL VOLUME 75.3 FL (80.0-100.0); MEAN CORPUSCULAR HEMOGLOBIN 23.7 PG (27.0-34.0); MEAN CORPUSCULAR HGB CONC 31.5 % (32.0-36.0); MEAN PLATELET VOLUME 6.6 FL (7.0-11.0); MONO % 5.5 % (0.0-8.0); MONOCYTE # 0.5 TH/MM3 (0-0.9); NEUT % 67.8 % (16.0-70.0); PLATELET COUNT 422 TH/MM3 (150-450); RED BLOOD COUNT 4.41 MIL/MM3 (4.50-5.90); RED CELL DISTRIBUTION WIDTH 24.1 % (11.6-17.2); WHITE BLOOD COUNT 8.4 TH/MM3 (4.0-11.0)
[2017-10-23 15:34] LABS: CHLORIDE 110 MEQ/L (98-107); SODIUM (NA) 144 MEQ/L (136-145)
[2017-10-23 15:38] LABS: ALBUMIN 2.7 GM/DL (3.4-5.0); BICARBONATE 24.4 MEQ/L (21.0-32.0); BLOOD UREA NITROGEN 3 MG/DL (7-18); GLUCOSE,RANDOM 92 MG/DL (74-106)
[2017-10-23 15:41] LABS: ALT (GPT) 23 U/L (12-78); AST (GOT) 81 U/L (15-37); CREATININE 0.83 MG/DL (0.60-1.30); GLOMERULAR FILTRATION RATE 95 ML/MIN (>89)
[2017-10-23 15:43] LABS: TOTAL BILIRUBIN ADULT 0.4 MG/DL (0.2-1.0); TOTAL PROTEIN 7.5 GM/DL (6.4-8.2)
[2017-10-23 15:44] LABS: ALKALINE PHOSPHATASE 188 U/L (45-117)
[2017-10-23] MEDS ORDERED: LIDOCAINE VISCOUS 2% SOLN 15 ML UDC PO ONE (15:45)
[2017-10-23] MEDS ORDERED: ALUMINUM/MAGNESIUM/SIMETH 30 ML CUP PO ONE (15:45)
[2017-10-23 15:46] LABS: TROPONIN I LESS THAN 0.02 NG/ML (0.02-0.05)
--- NOTE | 2017-10-23 15:58 | RADRPT ---
EXAM DATE/TIME: 10/23/2017 15:30 [facility] COMPARISON: CHEST SINGLE AP, October 02, 2017, 9:46. INDICATIONS : Left chest pain MEDICAL HISTORY : Gastroesophageal reflux disease. Chronic obstructive pulmonary disease. Hypertension. SURGICAL HISTORY : None. ENCOUNTER: Initial ACUITY: 1 day PAIN SCORE: 9/10 LOCATION: Left chest FINDINGS: A single view of the chest demonstrates the lungs to be symmetrically aerated without evidence of mas s, infiltrate or effusion. The cardiomediastinal contours are unremarkable. Osseous structures are intact. CONCLUSION: Mild diffuse interstitial prominence. Aleksandr Davidson MD on October 23, 2017 at 15:55 Board Certified Radiologist. This report was verified electronically.
[2017-10-23] MEDS ORDERED: POTASSIUM CHLORIDE 20 MEQ CONTROLLED RELEASE TAB PO ONE (16:00)
--- NOTE | 2017-10-23 16:03 | RADRPT ---
EXAM DATE/TIME: 10/23/2017 15:47 [facility] COMPARISON: No previous studies available for comparison. INDICATIONS : Trauma. Pain in region of mandibular ramus. RADIATION DOSE: 29.73 CTDIvol (mGy) MEDICAL HISTORY : Gastroesophageal reflux disease. Pancreatitis. Chronic obstructive pulmonary disease.Hypertension. As thma. SURGICAL HISTORY : None. ENCOUNTER: Initial ACUITY: 1 day PAIN SCORE: 2/10 LOCATION: Right facial TECHNIQUE: Volumetric scanning of the facial bones was performed. Using automated exposure control and adjustme nt of the mA and/or kV according to patient size, radiation dose was kept as low as reasonably achiev able to obtain optimal diagnostic quality images. DICOM format image data is available [facility] for review and comparison. FINDINGS: ORBITS: The orbital and infraorbital osseous structures are intact. The retroconal structures have a normal configuration. No radiopaque foreign bodies are seen. NASAL BONE: The nasal bone and maxillary spine are intact ZYGOMATIC ARCHES: Symmetric without evidence of fracture. The patient has a healed right condylar fracture of the dominguez ble. SINUSES: The maxillary, ethmoid and frontal sinuses are intact. No air-fluid levels seen. Small mucous retent ion cyst right maxillary sinus NASAL CAVITY: The nasal septum is intact and midline. The lacrimal ducts are intact. SOFT TISSUES: No radiopaque foreign bodies seen. No soft-tissue swelling is seen. INTRACRANIAL: No intracranial air seen. CRIBIFORM PLATE: Grossly intact. CONCLUSION: Healed fracture and anterior displacement of the right mandibular condyle. It is deformed, almost twi ce the size as the contralateral normal condyle. Aleksandr Davidson MD on October 23, 2017 at 15:59 Board Certified Radiologist. This report was verified electronically.
[2017-10-23 16:50] VITALS: BP 147/85
[2017-10-23 17:03] LABS: OVALOCYTES 1+ (NORMAL); TARGET CELLS 1+ (NORMAL); TEARDROP RBCS 1+ (NORMAL)
--- NOTE | 2017-10-24 13:42 | EKG ---
Date Performed: 10/23/2017 Time Performed: 14:42:51 PTAGE: 57 years EKG: SINUS TACHYCARDIA POSSIBLE RIGHT VENTRICULAR CONDUCTION DELAY ABNORMAL RHYTHM ECG PREVIOUS TRACING : 10/01/2017 12.45 Since the previous tracing, no significant change noted DOCTOR: Sebas Peña Interpretating Date/Time 10/24/2017 13:41:35
== END 2017-10-23 17:24 | disposition home or self-care (01) ==
LOC: PHED 14:34
DX: F10.20 Alcohol dependence, uncomplicated (principal); K29.80 Duodenitis without bleeding; R42 Dizziness and giddiness; E87.6 Hypokalemia; S02.611 Fracture of condylar process of right mandible; R00.0 Tachycardia, unspecified; R94.31 Abnormal electrocardiogram [ECG] [EKG]; I10 Essential (primary) hypertension; X58.XXXS Exposure to other specified factors, sequela
CPT/HCPCS: 70486; 71045; 80053; 80307; 82140; 82550; 84484; 85025; 93005; 96360; 99285; J7030

== ENCOUNTER 2017-10-24 00:12 | Observation (INO) | payer SELFPAY ==
[2017-10-24] VITALS (7 sets, daily range): BP systolic 113–139; BP diastolic 74–83; PULSE 87–119; RESP 16–20; TEMP 97.9–98.9; O2SAT 96–99
[~2017-10-24] VITALS: Ht 175.3 cm; Wt 65.0 kg
[2017-10-24] MEDS ORDERED: SODIUM CHLORIDE 0.9% FLUSH 10 ML FLUSH IVF PRN (01:00)
[2017-10-24] MEDS ORDERED: LORazepam 2 MG/ML VIAL IV PUSH PRN ×5 (01:15→06:30)
--- NOTE | 2017-10-24 01:16 | PD ---
HPI Chief Complaint: Chest Pain Time Seen by Provider: 00:51 Travel History International Travel<30 days: No Contact w/Intl Traveler<30days: No Traveled to known affect area: No History of Present Illness HPI Patient is a 57-year-old male patient with a known medical history of alcoholism, hypertension, COPD and pancreatitis who presented to the ED with complaints of worsening dizziness, nausea and vomiting, generalized weakness and syncopal episode at home. PT was just discharged from our ER today apparently he was discharged with medications , AND BASED ON THOSE MEDS recreation activities coordinator me to believe he was in alcohol withdrawal when he was in our hospital . Review of his charts show Gastritis and withdrawal ..he said he went home and that he fell when getting up from his couch comes in tachycardic 122 BP is normal patient denies being intoxicated at this time. he says he drinks most days but did not drink today patient is possibly in withdrawal he is tremulous and a poor historian. I review his recent admission for severe anemia had endoscopy and colonscopy and disharged this AM . At home he syncopized. Comes in by EMS [facility] Past Medical History Arthritis: No Asthma: Yes Blood Disorders: No Anxiety: Yes Depression: Yes Heart Rhythm Problems: No Cancer: No Cardiovascular Problems: Yes (htn, chest pain,) High Cholesterol: No Chemotherapy: No Chest Pain: Yes Congestive Heart Failure: No COPD: Yes Cerebrovascular Accident: No Diabetes: No Diminished Hearing: Yes (R EAR DIMINISHED ) Endocrine: No Gastrointestinal Disorders: Yes (diarrhea) GERD: Yes Genitourinary: No Headaches: No Hepatitis: No Hiatal Hernia: No Hypertension: Yes Immune Disorder: No Musculoskeletal: Yes (tightness in chest) Neurologic: Yes Psychiatric: Yes Reproductive: No Respiratory: Yes Immunizations Current: Yes Migraines: No Myocardial Infarction: No Pancreatitis: Yes Radiation Therapy: No Seizures: No Sleep Apnea: No Thyroid Disease: No Ulcer: No Past Surgical History Abdominal Surgery: No Appendectomy: No Cardiac Surgery: No Cholecystectomy: No Ear Surgery: No Endocrine Surgery: No Eye Surgery: Yes (rt eye laser suggricelda 1999) Genitourinary Surgery: No Gynecologic Surgery: No Oral Surgery: Yes (top implanted front dentures) Thoracic Surgery: No Other Surgery: Yes (eft wrist and left ankle) Social History Alcohol Use: Yes (STATES 'ALCHOHOLIC') Tobacco Use: Yes (3/4 PPD) Substance Use: Yes (ALCOHOL) Allergies-Medications (Allergen,Severity, Reaction): Coded Allergies: No Known Allergies (Verified Allergy, Unknown, 10/23/17) Reported Meds & Prescriptions Reported Meds & Active Scripts Active Review of Systems Except as stated in HPI: all other systems reviewed are Neg Neurologic: Positive: Syncope, Tremor, Ataxia (possible etoh withdrawal) Physical Exam Narrative GENERAL: tachycardic and tremulous , SKIN: Warm and dry.slightly diaphoretic HEAD: Atraumatic. Normocephalic. EYES: Pupils equal and round. No scleral icterus. No injection or drainage. ENT: No nasal bleeding or discharge. Mucous membranes pink and moist. NECK: Trachea midline. No JVD. CARDIOVASCULAR: Regular rate and rhythm. RESPIRATORY: No accessory muscle use. Clear to auscultation. Breath sounds equal bilaterally. GASTROINTESTINAL: Abdomen soft, non-tender, nondistended. Hepatic and splenic margins not palpable. MUSCULOSKELETAL: Extremities without clubbing, cyanosis, or edema. No obvious deformities. NEUROLOGICAL: Awake and alert. No obvious cranial nerve deficits. Motor grossly within normal limits. Five out of 5 muscle strength in the arms and legs. Normal speech. PSYCHIATRIC: Appropriate mood and affect; insight and judgment normal. Data Data Last Documented VS Orders Orders Electrocardiogram (10/24/17 00:58) Ckmb (Isoenzyme) Profile (10/24/17 00:58) Complete Blood Count With Diff (10/24/17 00:58) Comprehensive Metabolic Panel (10/24/17 00:58) Troponin I (10/24/17 00:58) Ecg Monitoring (10/24/17 00:58) Bilateral Bp Monitoring (10/24/17 00:58) Iv Access Insert/Monitor (10/24/17 00:58) Oximetry (10/24/17 00:58) Oxygen Administration (10/24/17 00:58) Sodium Chloride 0.9% Flush (Ns Flush) (10/24/17 01:00) Chest, Pa & Lat (10/24/17 00:58) Lorazepam Inj (Ativan Inj) (10/24/17 01:15) Alcohol (Ethanol) (10/24/17 01:05) CKMB (10/24/17 01:05) CKMB% (10/24/17 01:05) Chlordiazepoxide (Librium) (10/24/17 04:30) Chlordiazepoxide (Librium) (10/24/17 05:00) Sodium Chlor 0.9% 1000 Ml Inj (Ns 1000 M (10/24/17 06:00) Chlordiazepoxide (Librium) (10/24/17 09:00) Place In Observation (10/24/17 ) Vital Signs (Adult) Q4H (10/24/17 06:21) Activity Oob With Assistance (10/24/17 06:21) Sodium Chlor 0.9% 1000 Ml Inj (Ns 1000 M (10/24/17 06:21) Sodium Chloride 0.9% Flush (Ns Flush) (10/24/17 06:30) Sodium Chloride 0.9% Flush (Ns Flush) (10/24/17 09:00) Ondansetron Inj (Zofran Inj) (10/24/17 06:30) Comprehensive Metabolic Panel (10/25/17 06:00) Complete Blood Count With Diff (10/25/17 06:00) Naloxone Inj (Narcan Inj) (10/24/17 06:30) Docusate Sodium-Senna (Tiny-Colace) (10/24/17 09:00) Magnesium Hydroxide Liq (Milk Of Magnesi (10/24/17 06:30) Sennosides (Senokot) (10/24/17 06:30) Bisacodyl Supp (Dulcolax Supp) (10/24/17 06:30) Lactulose Liq (Lactulose Liq) (10/24/17 06:30) Alcohol Withdrawal Asmt-Ciwa Q4HX18 (10/24/17 06:21) Flumazenil Inj (Romazicon Inj) (10/24/17 06:30) Lorazepam (Ativan) (10/24/17 06:30) Lorazepam Inj (Ativan Inj) (10/24/17 06:30) Lorazepam (Ativan) (10/24/17 06:30) Lorazepam Inj (Ativan Inj) (10/24/17 06:30) Lorazepam Inj (Ativan Inj) (10/24/17 06:30) Lorazepam Inj (Ativan Inj) (10/24/17 06:30) Admit Order (Ed Use Only) (10/24/17 07:06) Labs Laboratory Tests Test 10/24/17 01:05 White Blood Count 15.3 TH/MM3 Red Blood Count 4.13 MIL/MM3 Hemoglobin 9.6 GM/DL Hematocrit 31.6 % Mean Corpuscular Volume 76.5 FL Mean Corpuscular Hemoglobin 23.4 PG Mean Corpuscular Hemoglobin Concent 30.6 % Red Cell Distribution Width 25.0 % Platelet Count 362 TH/MM3 Mean Platelet Volume 7.0 FL Neutrophils (%) (Auto) 88.9 % Lymphocytes (%) (Auto) 4.7 % Monocytes (%) (Auto) 5.5 % Eosinophils (%) (Auto) 0.1 % Basophils (%) (Auto) 0.8 % Neutrophils # (Auto) 13.5 TH/MM3 Lymphocytes # (Auto) 0.7 TH/MM3 Monocytes # (Auto) 0.8 TH/MM3 Eosinophils # (Auto) 0.0 TH/MM3 Basophils # (Auto) 0.1 TH/MM3 CBC Comment AUTO DIFF Differential Comment AUTO DIFF CONFIRMED Platelet Estimate NORMAL Platelet Morphology Comment NORMAL Ovalocytes 1+ Acanthocytes OCC Blood Urea Nitrogen 4 MG/DL Creatinine 1.10 MG/DL Random Glucose 81 MG/DL Total Protein 7.4 GM/DL Albumin 2.9 GM/DL Calcium Level 7.9 MG/DL Alkaline Phosphatase 168 U/L Aspartate Amino Transf (AST/SGOT) 86 U/L Alanine Aminotransferase (ALT/SGPT) 24 U/L Total Bilirubin 1.2 MG/DL Sodium Level 147 MEQ/L Potassium Level 3.5 MEQ/L Chloride Level 109 MEQ/L Carbon Dioxide Level 22.2 MEQ/L Anion Gap 16 MEQ/L Estimat Glomerular Filtration Rate 69 ML/MIN Total Creatine Kinase 287 U/L Creatine Kinase MB 2.7 NG/ML Troponin I LESS THAN 0.02 NG/ML Ethyl Alcohol Level 12 MG/DL [facility] Medical Decision Making Medical Screen Exam Complete: Yes Emergency Medical Condition: Yes Differential Diagnosis pt has withdrawal like signs and symptoms , vs GI bleed hematemesis, anemia recurrence vs autonomic unstable from etoh withdrawal and need fluid and ativan and antiemetics and admit for furhter management Narrative Course pt given ativan and PO librium to attempt Outpt management of withdrawal but he remained to tachycardiac to discharge , fluid resustiation to slow heart rate but still tachy will need admit for further manangement of symptoms Diagnosis Primary Impression: Syncope Qualified Codes: R55 - Syncope and collapse Additional Impression: Alcohol withdrawal Admitting Information Admitting Physician Requests: Admit Scripts Multivitamin with Folic Acid (Thera Tablet) 400 Mcg Tablet 1 TAB PO DAILY for Nutritional Supplement, #30 TAB Prov: Lori Ricci 10/26/17 Lactobacillus Acidophilus (Acidophilus/l-Sporogenes) 35 Million Cell-25 Million Cell Tab 1 TAB PO Q12HR for PROBIOTIC, #60 TAB Prov: Lori Ricci 10/26/17 Famotidine (Famotidine) 20 Mg Tab 20 MG PO BID for GERD, #60 TAB Prov: Lori Ricci 10/26/17 [Calcium Carbonate Chew] 500 MG CHEW No Conflict Check 500 MG CHEW Q12HR for Low Calcium, #10 Prov: Lori Ricci 10/26/17 Thiamine HCl (Gnp Vitamin B-1) 100 Mg Tab 100 MG PO DAILY for Vitamin, #30 TAB Prov: Lori Ricci 10/26/17 Folic Acid (Folic Acid) 1 Mg Tablet 1 MG PO DAILY for Vitamin, #30 TAB Prov: Lori Ricci 10/26/17 Magnesium Oxide (Magnesium Oxide) 400 Mg Tab 400 MG PO DAILY for Nutritional Supplement, #6 TAB 0 Refills Prov: Lori Ricci 10/26/17 Metoprolol Tartrate (Metoprolol Tartrate) 25 Mg Tab 12.5 MG PO Q12HR for Blood Pressure Management, #30 TAB DO NOT TAKE WITH ALCOHOL Prov: Lori Ricci 10/26/17 Potassium Chloride Microencaps (Potassium Chloride Microencaps) 10 Meq Tab 10 MEQ PO Q12HR for Electrolyte Replacement, #6 TAB 0 Refills Prov: Lori Ricci 10/26/17 Walker with Front Wheels (Walker with Front Wheels) 1 Mis Mis EA .XX DIRECTED, #1 0 Refills Prov: Lori Ricci 10/25/17 Abilio Pedroza MD Oct 24, 2017 01:16
[2017-10-24 01:40] LABS: AUTOMATED NEUTROPHIL # 13.5 TH/MM3 (1.8-7.7); BASOPHIL # 0.1 TH/MM3 (0-0.2); BASOPHIL % 0.8 % (0.0-2.0); EOSINOPHIL % 0.1 % (0.0-4.0); HEMATOCRIT 31.6 % (39.0-51.0); HEMOGLOBIN 9.6 GM/DL (13.0-17.0); LYMPH % 4.7 % (9.0-44.0); LYMPHOCYTE # 0.7 TH/MM3 (1.0-4.8); MEAN CELL VOLUME 76.5 FL (80.0-100.0); MEAN CORPUSCULAR HEMOGLOBIN 23.4 PG (27.0-34.0); MEAN CORPUSCULAR HGB CONC 30.6 % (32.0-36.0); MONO % 5.5 % (0.0-8.0); MONOCYTE # 0.8 TH/MM3 (0-0.9); NEUT % 88.9 % (16.0-70.0); PLATELET COUNT 362 TH/MM3 (150-450); RED BLOOD COUNT 4.13 MIL/MM3 (4.50-5.90); WHITE BLOOD COUNT 15.3 TH/MM3 (4.0-11.0)
--- NOTE | 2017-10-24 01:48 | RADRPT ---
EXAM DATE/TIME: 10/24/2017 01:10 [place] COMPARISON: CHEST PA & LAT, October 12, 2017, 22:08. INDICATIONS : Chest pain. MEDICAL HISTORY : Pancreatitis.Gastroesophageal reflux disease. Chronic obstructive pulmonary disease. Hypertension. SURGICAL HISTORY : None. ENCOUNTER: [facility] ACUITY: 2 weeks PAIN SCORE: 9/10 LOCATION: Left chest FINDINGS: PA and lateral views of the chest demonstrate the lungs to be symmetrically aerated without evidence of mass, infiltrate or effusion. The cardiomediastinal contours are unremarkable. Osseous structure s are intact. CONCLUSION: The lungs are clear. No acute findings. Dennys Rivas MD on October 24, 2017 at 1:46 Board Certified Radiologist. This report was verified electronically.
[2017-10-24 01:54] LABS: ALBUMIN 2.9 GM/DL (3.4-5.0); AST (GOT) 86 U/L (15-37); BICARBONATE 22.2 MEQ/L (21.0-32.0); BLOOD UREA NITROGEN 4 MG/DL (7-18); CALCIUM 7.9 MG/DL (8.5-10.1); CHLORIDE 109 MEQ/L (98-107); GLOMERULAR FILTRATION RATE 69 ML/MIN (>89); GLUCOSE,RANDOM 81 MG/DL (74-106); SODIUM (NA) 147 MEQ/L (136-145)
[2017-10-24 01:59] LABS: ALKALINE PHOSPHATASE 168 U/L (45-117); ALT (GPT) 24 U/L (12-78); TOTAL BILIRUBIN ADULT 1.2 MG/DL (0.2-1.0); TOTAL PROTEIN 7.4 GM/DL (6.4-8.2); TROPONIN I LESS THAN 0.02 NG/ML (0.02-0.05)
[2017-10-24 02:14] LABS: ACANTHOCYTES OCC (NORMAL); OVALOCYTES 1+ (NORMAL)
[2017-10-24] MEDS ORDERED: SODIUM CHLOR 0.9% 1000 ML INJ 1,000 ML IV ONE (06:00)
[2017-10-24] MEDS ORDERED: SODIUM CHLOR 0.9% 1000 ML INJ 1,000 ML IV SCH (06:21)
[2017-10-24] MEDS ORDERED: LACTULOSE SYRUP 20 GM/30 ML CUP PO PRN (06:30)
[2017-10-24] MEDS ORDERED: BISACODYL 10 MG SUPP RECTAL PRN (06:30)
[2017-10-24] MEDS ORDERED: SENNOSIDES 8.6 MG TAB PO PRN (06:30)
[2017-10-24] MEDS ORDERED: ONDANSETRON HCL 4 MG/2 ML VIAL IVP PRN (06:30)
[2017-10-24] MEDS ORDERED: FLUMAZENIL 0.5 MG/5 ML VIAL IV PUSH PRN (06:30)
[2017-10-24] MEDS ORDERED: NALOXONE HCL 0.4 MG/ML AMP IV PUSH PRN (06:30)
[2017-10-24] MEDS ORDERED: LORazepam 1 MG TAB PO PRN (06:30)
[2017-10-24] MEDS ORDERED: LORazepam 2 MG TAB PO PRN (06:30)
[2017-10-24] MEDS ORDERED: SODIUM CHLORIDE 0.9% FLUSH 10 ML FLUSH IV FLUSH PRN (06:30)
[2017-10-24] MEDS ORDERED: MAGNESIUM HYDROXIDE SUSP 30 ML CUP PO PRN (06:30)
[2017-10-24] MEDS ORDERED: DOCUSATE SODIUM 50 MG/SENNA 8.6 MG TAB PO SCH (09:00)
[2017-10-24] MEDS: SODIUM CHLORIDE 0.9% FLUSH 10 ML FLUSH IV FLUSH SCH ×2 (09:00→21:38)
[2017-10-24] MEDS ORDERED: MULTIVITAMIN TAB PO ONE (12:00)
[2017-10-24] MEDS ORDERED: ACETAMINOPHEN 325 MG TAB PO PRN (12:00)
[2017-10-24] MEDS ORDERED: FOLIC ACID 1 MG TAB PO ONE (12:00)
--- NOTE | 2017-10-24 12:37 | HHI.HP ---
HPI Service [facility] Hospitalists Primary Care Physician No Primary Care Physician Admission Diagnosis syncope and etoh withdrawal tachycardia Diagnoses: Chief Complaint: Chest pain N/V diarrhea dizziness Travel History International Travel<30 Days: No Contact w/Intl Traveler <30 Da: No Traveled to Known Affected Are: No History of Present Illness This is a 57yo male with a PMHX of alcoholism, HTN, COPD and recurrent pancreatitis who presents to [facility] ED with complaints of chest pain, nausea, vomiting, diarrhea and dizziness. Patient reports left sided dull chest pressure that occurs 4 to 5x per day typically when getting up from supine or seated position with associated dizziness and diaphoresis and occasionally associated with shortness of breath for the past several months. Patient is not sure whether or not he passes out during these episodes. He denies any fever or chills. Patient states he has had issues with ongoing nausea and vomiting as well as diarrhea for the past several days. He reports mild abdominal pain. He endorses generalized weakness with recurrent falls at home. He admits to alcohol consumption most days of the week consisting either of several beers per day or multiple shots up to 4 however he states he has not had alcoholic beverage since Friday. He denies any history of alcohol seizures in the past. He reports strong family history of heart disease in both his grandfather and father who from [facility], his father at the age of 60. Patient continues to smoke three quarters a pack of cigarettes per day. He denies any illicit drug use since the . In the ED, patient was found to be tachycardic with a heart rate of 119 and had leukocytosis with elevated white count of 15.3. He is afebrile. Lactic acid was not obtained. Chest x- ray was unremarkable. Troponin was less than 0.02. While in the room, patient vomited twice. He reports his last loose stool was earlier this morning. Patient had a cardiac catheterization in 2017 which showed mild nonobstructive coronary disease. Review of Systems Except as stated in HPI: all other systems reviewed are Neg Past Family Social History Past Medical History Chronic alcoholism COPD History of recurrent pancreatitis Hypertension Nonischemic cardiomyopathy Echocardiogram 08/10/2017 EF 25-30% GERD Past Surgical History Left wrist surgery Right eye laser surgery Oral surgery for implanted dentures Reported Medications Pantoprazole (Pantoprazole Sodium) 40 Mg Tab 40 Mg PO DAILY Office Medication (Miscellaneous Medication) Misc 5 Mg PO DIRECTED chlordiazepoxide 5 mg cap 1 cap po TID for 2 days, then 1 cap BID for 2 days, then 1 cap daily afterwards Metronidazole 500 Mg Tab 500 Mg PO TID Gnp Vitamin B-1 (Thiamine HCl) 100 Mg Tab 100 Mg PO DAILY Folic Acid 1 Mg Tablet 1 Mg PO DAILY Potassium Chloride Microencaps 20 Meq Tab 20 Meq PO BID Allergies: Coded Allergies: No Known Allergies (Verified Allergy, Unknown, 10/23/17) Active Ordered Medications Current Medications Medications (Trade) Dose Ordered Sig/Tiffanie Route Start Time Stop Time Status Last Admin (Ativan Inj) 1 mg Q2H PRN IV PUSH 10/24/17 01:15 10/24/17 01:47 Sodium Chloride 1,000 ml @ 80 mls/hr [id number] IV 10/24/17 06:21 10/24/17 08:33 (NS Flush) 2 ml UNSCH PRN IV FLUSH 10/24/17 06:30 (NS Flush) 2 ml BID IV FLUSH 10/24/17 09:00 (Zofran Inj) 4 mg Q6H PRN IVP 10/24/17 06:30 (Narcan Inj) 0.4 mg UNSCH PRN IV PUSH 10/24/17 06:30 (Tiny-Colace) 1 tab BID PO 10/24/17 09:00 (Milk Of Magnesia Liq) 30 ml Q12H PRN PO 10/24/17 06:30 (Senokot) 17.2 mg Q12H PRN PO 10/24/17 06:30 (Dulcolax Supp) 10 mg DAILY PRN RECTAL 10/24/17 06:30 (Lactulose Liq) 30 ml DAILY PRN PO 10/24/17 06:30 (Romazicon Inj) 0.2 mg Q1M PRN IV PUSH 10/24/17 06:30 (Ativan) 1 mg Q4H PRN PO 10/24/17 06:30 (Ativan Inj) 1 mg Q4H PRN IV PUSH 4/27/18 06:30 (Ativan) 2 mg Q2H PRN PO 10/24/17 06:30 (Ativan Inj) 2 mg Q2H PRN IV PUSH 10/24/17 06:30 (Ativan Inj) 2 mg Q1H PRN IV PUSH 10/24/17 06:30 (Ativan Inj) 2 mg Q15M PRN IV PUSH 10/24/17 06:30 Thiamine HCl 100 mg/Sodium Chloride 101 ml @ 101 mls/hr ONCE ONCE IV 10/24/17 11:30 10/24/17 12:29 UNV (Theragran) 1 tab DAILY PO 10/25/17 09:00 UNV (Theragran) 1 tab ONCE ONCE PO 10/24/17 11:30 10/24/17 11:31 UNV (Folate) 1 mg ONCE ONCE PO 10/24/17 11:30 10/24/17 11:31 UNV (Folate) 1 mg DAILY PO 10/25/17 09:00 UNV (Vitamin B1) 100 mg DAILY PO 10/25/17 09:00 UNV Family History Coronary artery disease, father age 60 from [place] Mother from gallbladder issues, age 76 Social History Patient smokes a pack of cigarettes a day since the age of 15. He reports alcohol consumption most days of the week consisting of several beers or 4-5 shots daily. He denies any drug use since the s. Physical Exam Vital Signs Vital Signs Date Time Temp Pulse Resp B/P (MAP) Pulse Ox O2 Delivery O2 Flow Rate FiO2 10/24/17 10:40 98.2 87 20 120/74 (89) 96 10/24/17 09:27 10/24/17 06:06 105 16 115/74 (88) 99 Room Air 10/24/17 01:00 100 Nasal Cannula 2.00 10/24/17 01:00 111 99 Nasal Cannula 2.00 10/24/17 00:20 98.0 119 16 139/83 (101) 99 Physical Exam GENERAL: This is a well-nourished, well-developed unkempt male patient , in no apparent distress. Awake and alert. Vomiting 2 while I was in the room. SKIN: No rashes, ecchymoses or lesions. Cool and dry. HEAD: Atraumatic. Normocephalic. No temporal or scalp tenderness. EYES: Pupils equal round and reactive. Extraocular motions intact. No scleral icterus. No injection or drainage. ENT: Nose without bleeding or purulent drainage. Throat without erythema, tonsillar hypertrophy or exudate. Uvula midline. Airway patent. NECK: Trachea midline. No lymphadenopathy. Supple, nontender, no meningeal signs. CARDIOVASCULAR: Regular rate and rhythm without murmurs, gallops, or rubs. RESPIRATORY: Clear to auscultation. Breath sounds equal bilaterally. No wheezes , rales, or rhonchi. GASTROINTESTINAL: Abdomen soft, nondistended. (+) Diffuse mild tenderness to palpation in all 4 quadrants. No hepato-splenomegaly, or palpable masses. No guarding. MUSCULOSKELETAL: Extremities without clubbing, cyanosis, or edema. No joint tenderness, effusion, or edema noted. No calf tenderness. NEUROLOGICAL: Awake and alert. Cranial nerves II through XII grossly intact. Motor and sensory grossly within normal limits. Five out of 5 muscle strength in all muscle groups. Normal speech. Laboratory Laboratory Tests Test 10/24/17 01:05 White Blood Count 15.3 Red Blood Count 4.13 Hemoglobin 9.6 Hematocrit 31.6 Mean Corpuscular Volume 76.5 Mean Corpuscular Hemoglobin 23.4 Mean Corpuscular Hemoglobin Concent 30.6 Red Cell Distribution Width 25.0 Platelet Count 362 Mean Platelet Volume 7.0 Neutrophils (%) (Auto) 88.9 Lymphocytes (%) (Auto) 4.7 Monocytes (%) (Auto) 5.5 Eosinophils (%) (Auto) 0.1 Basophils (%) (Auto) 0.8 Neutrophils # (Auto) 13.5 Lymphocytes # (Auto) 0.7 Monocytes # (Auto) 0.8 Eosinophils # (Auto) 0.0 Basophils # (Auto) 0.1 CBC Comment AUTO DIFF Differential Comment AUTO DIFF CONFIRMED Platelet Estimate NORMAL Platelet Morphology Comment NORMAL Ovalocytes 1+ Acanthocytes OCC Blood Urea Nitrogen 4 Creatinine 1.10 Random Glucose 81 Total Protein 7.4 Albumin 2.9 Calcium Level 7.9 Alkaline Phosphatase 168 Aspartate Amino Transf (AST/SGOT) 86 Alanine Aminotransferase (ALT/SGPT) 24 Total Bilirubin 1.2 Sodium Level 147 Potassium Level 3.5 Chloride Level 109 Carbon Dioxide Level 22.2 Anion Gap 16 Estimat Glomerular Filtration Rate 69 Total Creatine Kinase 287 Creatine Kinase MB 2.7 Troponin I LESS THAN 0.02 Ethyl Alcohol Level 12 Result Diagram: 10/24/1710410/24/17104 Imaging Last Impressions Chest X-Ray 10/24/17 0058 Signed Impressions: Service Date/Time: Tuesday, October 24, 2017 01:10 - CONCLUSION: The lungs are clear. No acute findings. MD Balwinder Castro VTE Risk Assessment Capkarsten VTE Risk Assessment: No/Low Risk (score <= 1) Caprini Risk Assessment Model Point Value = 1 Point Value = 2 Point Value = 3 Point Value = 5 Age 41-60 Minor surgery BMI > 25 kg/m2 Swollen legs Varicose veins or History of unexplained or recurrent spontaneous Oral contraceptives or hormone replacement Sepsis (< 1 month) Serious lung disease, including pneumonia (< 1 month) Abnormal pulmonary function Acute myocardial infarction Congestive heart failure (< 1 month) History of inflammatory bowel disease Medical patient at bed rest Age 61-74 Arthroscopic surgery Major open surgery (> 45 min) Laparoscopic surgery (> 45 min) Malignancy Confined to bed (> 72 hours) Immobilizing plaster cast Central venous access Age >= 75 History of VTE Family history of VTE Factor V Leiden Prothrombin [id number] Lupus anticoagulant Anticardiolipin antibodies Elevated serum homocysteine Heparin-induced thrombocytopenia Other congenital or acquired thrombophilia Stroke (< 1 month) Elective arthroplasty Hip, pelvis, or leg fracture Acute spinal cord injury (< 1 month) Prophylaxis Regimen Total Risk Factor Score Risk Level Prophylaxis Regimen 0-1 Low Early ambulation 2 Moderate Order ONE of the following: *Sequential Compression Device (SCD) *Heparin 5000 units SQ BID 3-4 Higher Order ONE of the following medications: *Heparin 5000 units SQ TID *Enoxaparin/Lovenox 40 mg SQ daily (WT < 150 kg, CrCl > 30 mL/min) *Enoxaparin/Lovenox 30 mg SQ daily (WT < 150 kg, CrCl > 10-29 mL/min) *Enoxaparin/Lovenox 30 mg SQ BID (WT < 150 kg, CrCl > 30 mL/min) AND/OR *Sequential Compression Device (SCD) 5 or more Highest Order ONE of the following medications: *Heparin 5000 units SQ TID (Preferred with Epidurals) *Enoxaparin/Lovenox 40 mg SQ daily (WT < 150 kg, CrCl > 30 mL/min) *Enoxaparin/Lovenox 30 mg SQ daily (WT < 150 kg, CrCl > 10-29 mL/min) *Enoxaparin/Lovenox 30 mg SQ BID (WT < 150 kg, CrCl > 30 mL/min) AND *Sequential Compression Device (SCD) Assessment and Plan Assessment and Plan Chest pain, r/o ACS Initial troponin less than 0.02 Patient is status post cardiac catheterization 2017 revealing mild nonobstructive coronary artery disease -Monitor on cardiac telemetry -Trend cardiac enzymes and EKGs -Obtain echocardiogram Intractable nausea, vomiting and diarrhea Recurrent history of C. difficile, last tested positive for C. difficile 10/02/17 Hyperchloremic metabolic acidosis, suspect secondary to alcohol ingestion and GI losses History of chronic alcoholism and recurrent pancreatitis Status post EGD/colonoscopy 10/06/17 revealing duodenitis, hiatal hernia, gastritis and diverticulosis -Obtain lipase level -Clear liquid diet -Send stool studies for C. difficile, enteric pathogen and white blood cells -IVF -Zofran IV prn Leukocytosis, suspect reactive secondary to nausea and vomiting Chest x-ray shows no acute disease, images reviewed by me -Continue to monitor white count -Obtain lactic acid sepsis protocol -Obtain urinalysis Chronic alcoholism Ethyl alcohol 297 Transaminitis, suspect secondary to chronic alcoholism -obtain UDS -Monitor LFTs -Avoid hepatotoxic agents -CIWA protocol -Thiamine/multivitamin/folic acid daily -Monitor for signs of withdrawal -seizure precautions COPD with ongoing tobaccoism, not in acute exacerbation -smoking cessation counseling -Duonebs prn -continue to monitor respiratory status -nicotine patch ordered Anemia, hypochromic, microcytic, chronic, stable B12 and folate levels WNL 10/02/17 No evidence of acute bleed -obtain stool for hemoccult testing (neg stool hemoccult 10/02) -Continue to monitor CBC as indicated DVT prophylaxis -Heparin sq Discussed Condition With patient, nursing staff, Lori Bender Oct 24, 2017 12:37
[2017-10-24] MEDS ORDERED: THIAMINE INJ 100 MG in SODIUM CHLORIDE 0.9% INJ 100 ML IV ONE (13:00)
[2017-10-24] MEDS: HEPARIN SODIUM - SQ 10,000 UNITS/ML VIAL SQ SCH ×2 (13:33→21:37)
--- NOTE | 2017-10-24 13:42 | EKG ---
Date Performed: 10/24/2017 Time Performed: 00:22:02 PTAGE: 57 years EKG: SINUS TACHYCARDIA POSSIBLE RIGHT VENTRICULAR CONDUCTION DELAY ABNORMAL RHYTHM ECG PREVIOUS TRACING : 10/23/2017 14.42 Since the previous tracing, no significant change noted DOCTOR: Sebas Peña Interpretating Date/Time 10/24/2017 13:41:42
[2017-10-24] MEDS ORDERED: PANTOPRAZOLE SODIUM 40 MG VIAL IV PUSH SCH (14:00)
[2017-10-24 14:19] LABS: BILIRUBIN, URINE NEG (NEG); BLOOD, URINE NEG (NEG); GLUCOSE,URINE NEG (NEG); KETONE, URINE NEG (NEG); NITRITE,URINE NEG (NEG); SQUAMOUS EPITHELIAL CELL URINE <1 /hpf (0-5); URINE COLOR LIGHT-YELLOW (YELLW/STRAW); URINE LEUKOCYTE ESTERASE NEG (NEG)
[2017-10-24] MEDS ORDERED: RESP: ALBUTEROL 2.5 MG/IPRATROPIUM 0.5 MG NEB (PRN) NEB (16:45)
[2017-10-24] MEDS ORDERED: METOPROLOL TARTRATE 25 MG TAB PO SCH (21:00)
[2017-10-24] MEDS: FAMOTIDINE 20 MG TAB PO SCH (21:38)
[2017-10-25] VITALS (8 sets, daily range): BP systolic 120–143; BP diastolic 73–89; PULSE 89–113; RESP 16–20; TEMP 96.8–98.9; O2SAT 96–99
[2017-10-25] MEDS: HEPARIN SODIUM - SQ 10,000 UNITS/ML VIAL SQ SCH ×3 (06:29→21:40)
[2017-10-25 07:41] LABS: AUTOMATED NEUTROPHIL # 6.8 TH/MM3 (1.8-7.7); BASOPHIL # 0.1 TH/MM3 (0-0.2); BASOPHIL % 0.8 % (0.0-2.0); EOSINOPHIL # 0.3 TH/MM3 (0-0.4); EOSINOPHIL % 3.5 % (0.0-4.0); HEMATOCRIT 28.2 % (39.0-51.0); HEMOGLOBIN 9.3 GM/DL (13.0-17.0); LYMPH % 15.2 % (9.0-44.0); LYMPHOCYTE # 1.4 TH/MM3 (1.0-4.8); MEAN CELL VOLUME 75.3 FL (80.0-100.0); MEAN CORPUSCULAR HEMOGLOBIN 24.7 PG (27.0-34.0); MEAN CORPUSCULAR HGB CONC 32.9 % (32.0-36.0); MEAN PLATELET VOLUME 7.3 FL (7.0-11.0); MONO % 8.1 % (0.0-8.0); MONOCYTE # 0.8 TH/MM3 (0-0.9); NEUT % 72.4 % (16.0-70.0); PLATELET COUNT 224 TH/MM3 (150-450); RED BLOOD COUNT 3.75 MIL/MM3 (4.50-5.90); RED CELL DISTRIBUTION WIDTH 24.2 % (11.6-17.2); WHITE BLOOD COUNT 9.3 TH/MM3 (4.0-11.0)
[2017-10-25 08:06] LABS: ALBUMIN 2.4 GM/DL (3.4-5.0); ALT (GPT) 21 U/L (12-78); AST (GOT) 57 U/L (15-37); BICARBONATE 21.8 MEQ/L (21.0-32.0); BLOOD UREA NITROGEN 2 MG/DL (7-18); CALCIUM 7.7 MG/DL (8.5-10.1); CHLORIDE 108 MEQ/L (98-107); CREATININE 0.71 MG/DL (0.60-1.30); GLOMERULAR FILTRATION RATE 114 ML/MIN (>89); GLUCOSE,RANDOM 69 MG/DL (74-106); SODIUM (NA) 141 MEQ/L (136-145)
[2017-10-25 08:08] LABS: ALKALINE PHOSPHATASE 137 U/L (45-117); TOTAL PROTEIN 6.4 GM/DL (6.4-8.2)
[2017-10-25] MEDS: REMOVE OLD PATCH T-DERMAL SCH (09:00)
[2017-10-25] MEDS ORDERED: LISINOPRIL 5 MG TAB PO SCH (09:00)
[2017-10-25] MEDS: SODIUM CHLORIDE 0.9% FLUSH 10 ML FLUSH IV FLUSH SCH ×2 (09:41→21:40)
[2017-10-25] MEDS: THIAMINE HCL 100 MG TAB PO SCH (09:41)
[2017-10-25] MEDS: FOLIC ACID 1 MG TAB PO SCH (09:41)
[2017-10-25] MEDS: MULTIVITAMIN TAB PO SCH (09:41)
[2017-10-25] MEDS: FAMOTIDINE 20 MG TAB PO SCH ×2 (09:41→21:39)
[2017-10-25] MEDS: NICOTINE 21 MG/24 HR PATCH T-DERMAL SCH (09:42)
--- NOTE | 2017-10-25 10:30 | HHI.PR ---
Subjective Remarks Follow up on patient with chest pain, N/V, diarrhea. Patient seen and examined. Patient refused to keep his telemetry on overnight. Patient reports resolution of his nausea and vomiting. He was able to tolerate soft diet this am. No loose stools overnight so unable to send specimen for stool studies. He had had 2 loose stools this morning. He denies any abdominal pain. He denies any fever or chills. He reports dull midsternal 1/10 chest pain. He denies any diaphoresis, palpitations, shortness of breath or near syncope. He tells me his brother is coming to pick him up in an hour. Informed patient he still has additional testing that needs to be completed. He will decide in a little while if he will stay to complete his workup or leave and complete testing as outpatient. Objective Vitals Vital Signs Date Time Temp Pulse Resp B/P (MAP) Pulse Ox O2 Delivery O2 Flow Rate FiO2 10/25/17 06:15 96 10/25/17 03:13 98.7 89 16 128/79 (95) 99 10/24/17 23:33 98.9 95 17 137/82 (100) 99 10/24/17 20:19 98.4 92 18 113/78 (90) 99 10/24/17 15:48 97.9 102 18 129/80 (96) 96 10/24/17 14:18 96 21 10/24/17 10:40 98.2 87 20 120/74 (89) 96 I/O 10/24/17 10/24/17 10/24/17 10/25/17 10/25/17 10/25/17 07:00 15:00 23:00 07:00 15:00 23:00 Intake Total 1851 ml 240 ml Balance 1851 ml 240 ml Intake Oral 240 ml IV Total 1851 ml # Voids 2 # Bowel Movements 1 Result Diagram: 10/25/1720 10/25/17619 Imaging Last Impressions Chest X-Ray 10/24/17 0058 Signed Impressions: Service Date/Time: Tuesday, October 24, 2017 01:10 - CONCLUSION: The lungs are clear. No acute findings. Dennys Rivas MD Objective Remarks GENERAL: This is a well-nourished, well-developed unkempt male patient , in no apparent distress. Awake and alert. Lying in bed watching TV. SKIN: Warm and dry. HEAD: Atraumatic. Normocephalic. No temporal or scalp tenderness. EYES: Pupils equal round and reactive. Extraocular motions intact. No scleral icterus. No injection or drainage. ENT: Nose without bleeding or purulent drainage. Airway patent. MMM. NECK: Trachea midline. No lymphadenopathy. Supple, nontender, no meningeal signs. CARDIOVASCULAR: Regular rate and rhythm without murmurs, gallops, or rubs. RESPIRATORY: Clear to auscultation. Breath sounds equal bilaterally. No wheezes , rales, or rhonchi. GASTROINTESTINAL: Abdomen soft, nondistended, nontender to palpation. No hepato -splenomegaly, or palpable masses. No guarding. MUSCULOSKELETAL: Extremities without clubbing, cyanosis, or edema. No joint tenderness, effusion, or edema noted. No calf tenderness. NEUROLOGICAL: Awake and alert. Cranial nerves II through XII grossly intact. Motor and sensory grossly within normal limits. Nonfocal. Normal speech. PSYCHIATRIC: Calm and pleasant. Procedures None Medications and IVs Current Medications Medications (Trade) Dose Ordered Sig/Tiffanie Route Start Time Stop Time Status Last Admin (Ativan Inj) 1 mg Q2H PRN IV PUSH 10/24/17 01:15 10/24/17 01:47 (NS Flush) 2 ml UNSCH PRN IV FLUSH 10/24/17 06:30 (NS Flush) 2 ml BID IV FLUSH 10/24/17 09:00 10/25/17 09:41 (Zofran Inj) 4 mg Q6H PRN IVP 10/24/17 06:30 (Narcan Inj) 0.4 mg UNSCH PRN IV PUSH 10/24/17 06:30 (Tiny-Colace) 1 tab BID PO 10/24/17 09:00 Future Hold (Milk Of Magnesia Liq) 30 ml Q12H PRN PO 10/24/17 06:30 (Senokot) 17.2 mg Q12H PRN PO 10/24/17 06:30 (Dulcolax Supp) 10 mg DAILY PRN RECTAL 10/24/17 06:30 (Lactulose Liq) 30 ml DAILY PRN PO 10/24/17 06:30 (Romazicon Inj) 0.2 mg Q1M PRN IV PUSH 10/24/17 06:30 (Ativan) 1 mg Q4H PRN PO 10/24/17 06:30 10/24/17 13:29 (Ativan Inj) 1 mg Q4H PRN IV PUSH 10/24/17 06:30 (Ativan) 2 mg Q2H PRN PO 10/24/17 06:30 (Ativan Inj) 2 mg Q2H PRN IV PUSH 10/24/17 06:30 (Ativan Inj) 2 mg Q1H PRN IV PUSH 10/24/17 06:30 (Ativan Inj) 2 mg Q15M PRN IV PUSH 10/24/17 06:30 (Theragran) 1 tab DAILY PO 10/25/17 09:00 10/25/17 09:41 (Folate) 1 mg DAILY PO 10/25/17 09:00 10/25/17 09:41 (Vitamin B1) 100 mg DAILY PO 10/25/17 09:00 10/25/17 09:41 (Tylenol) 650 mg Q4H PRN PO 10/24/17 12:00 (Heparin Inj) 5,000 units Q8H SQ 10/24/17 14:00 10/25/17 06:29 (Habitrol 21 Mg Patch.24 Hr) 1 patch DAILY T-DERMAL 10/25/17 09:00 10/25/17 09:42 Miscellaneous Information 1 DAILY T-DERMAL 10/25/17 09:00 (Pepcid) 20 mg BID PO 10/24/17 21:00 10/25/17 09:41 (Duoneb Neb) 1 ampule Q2HR NEB PRN NEB 10/24/17 16:45 (KCl) 40 meq Q4H PO 10/25/17 11:00 10/25/17 15:01 (Lactinex) 1 tab Q12HR PO 10/25/17 21:00 A/P Assessment and Plan Chest pain, r/o ACS CP better today Troponin less than 0.02 x 3 Patient is status post cardiac catheterization 2016 revealing mild nonobstructive coronary artery disease Patient refused cardiac telemetry overnight -Obtain echocardiogram -ordered/pending Intractable nausea, vomiting and diarrhea N/V resolved. Able to tolerate diet. Still with loose stools. Recurrent history of C. difficile, last tested positive for C. difficile 10/02/17 Hyperchloremic metabolic acidosis, suspect secondary to alcohol ingestion and GI losses History of chronic alcoholism and recurrent pancreatitis. Lipase level WNL Status post EGD/colonoscopy 10/06/17 revealing duodenitis, hiatal hernia, gastritis and diverticulosis -advance diet -No loose stools overnight but 2 loose BMs this am. No blood in stool. Send stool studies for C. difficile, enteric pathogen and white blood cells -Zofran IV prn -continue Pepcid 20mg BID -Lactobacillus Leukocytosis, suspect reactive secondary to nausea and vomiting, resolved Chest x-ray shows no acute disease, images reviewed by me Lactic acid 1.6 UA unremarkable -Continue to monitor white count as indicated Chronic alcoholism Ethyl alcohol 297 Transaminitis, suspect secondary to chronic alcoholism No e/o DTs UDS positive for benzos LFTs trending down -Avoid hepatotoxic agents -[facility] protocol -Thiamine/multivitamin/folic acid daily -Monitor for signs of withdrawal -seizure precautions COPD with ongoing tobaccoism, not in acute exacerbation -smoking cessation counseling -Duonebs prn -continue to monitor respiratory status -nicotine patch ordered Anemia, hypochromic, microcytic, chronic, stable B12 and folate levels WNL 10/02/17 No evidence of acute bleed -obtain stool for hemoccult testing (neg stool hemoccult 10/02) -Continue to monitor CBC as indicated DVT prophylaxis -Heparin sq Discharge Planning Possible discharge later today pending stool studies results and echocardiogram Lori Ricci Oct 25, 2017 10:30
[2017-10-25 11:12] LABS: CALCIUM 7.4 MG/DL (8.5-10.1); CALCIUM-PROTEIN CORRECTED 7.7 MG/DL (8.5-10.1); MAGNESIUM 1.4 MG/DL (1.5-2.5); TOTAL PROTEIN 6.5 GM/DL (6.4-8.2)
[2017-10-25] MEDS: POTASSIUM CHLORIDE 10 MEQ CONTROLLED RELEASE TAB PO SCH ×2 (12:00→16:26)
[2017-10-25] MEDS ORDERED: MAGNESIUM OXIDE 400 MG TAB PO ONE (14:30)
[2017-10-25] MEDS ORDERED: CALCIUM CARBONATE 500 MG CHEWABLE TAB CHEW ONE (14:30)
[2017-10-25] MEDS ORDERED: WALKER WHEELS/F1 MIS (18:05)
--- NOTE | 2017-10-25 18:05 | HHI.FF ---
Face to Face Verification Diagnosis: (1) Impaired activities of daily living (2) Physical deconditioning (3) Gait instability (4) Balance problem Physical Therapy Order: Evaluate and Treat, Improve ambulation, Strength and gait training I have seen patient Shawn Steven on 10/25/17. My clinical findings support the need for the requested home health care services because: Deconditioned w/ increased weakness Limited ability to care for self High risk of falls I certify that my clinical findings support that this patient is homebound because: Unsteady gait/balance Unsafe to leave home unassisted Unable to use public transportation Lori Ricci Oct 25, 2017 18:05
--- NOTE | 2017-10-25 18:58 | ECHRPT ---
Indication: CHEST PAIN CONCLUSIONS Normal left ventricular size. Mild concentric left ventricular hypertrophy. The left ventricular systolic function is low normal with an estimated ejection fraction in the rang e of 50- 55%. The left atrial size is mildly dilated. The right atrial size is mildly dilated. [id number] mitral valve regurgitation. No tricuspid regurgitation. BP: 120 / 73 HR: 104 Rhythm: Sinus MEASUREMENTS (Male / Female) Normal Values Technical Quality:Fair 2D ECHO LV Diastolic Diameter PLAX 5.3 cm 4.2 - 5.9 / 3.9 - 5.3 cm LV Systolic Diameter PLAX 4.4 cm IVS Diastolic Thickness 1.1 cm 0.6 - 1.0 / 0.6 - 0.9 cm LVPW Diastolic Thickness 1.0 cm 0.6 - 1.0 / 0.6 - 0.9 cm LV Relative Wall Thickness 0.4 RV Internal Dim ED PLAX 2.4 cm LVOT Diameter 2.4 cm Aortic Root Diameter 3.7 cm LA Systolic Diameter LX 2.9 cm 3.0 - 4.0 / 2.7 - 3.8 cm M-MODE AV Cusp Separation MM 2.4 cm DOPPLER AV Peak Velocity 113.0 cm/s AV Peak Gradient 5.1 mmHg AV Mean Gradient 3.0 mmHg AV Velocity Time Integral 17.9 cm LVOT Peak Velocity 74.4 cm/s LVOT Peak Gradient 2.2 mmHg LVOT Velocity Time Integral 15.0 cm AV Area Cont Eq vti 3.8 cm AV Area Cont Eq pk 3.0 cm Mitral E Point Velocity 56.3 cm/s Mitral A Point Velocity 84.4 cm/s Mitral E to A Ratio 0.7 LV E' Lateral Velocity 9.7 cm/s Mitral E to LV E' Lateral Ratio 5.8 LV E' Septal Velocity 10.8 cm/s Mitral E to LV E' Septal Ratio 5.2 PV Peak Velocity 57.1 cm/s PV Peak Gradient 1.3 mmHg FINDINGS LEFT VENTRICLE Normal left ventricular size. Mild concentric left ventricular hypertrophy. The left ventricular systolic function is low normal with an estimated ejection fraction in the rang e of 50- 55%. RIGHT VENTRICLE Normal right ventricular size and systolic function. LEFT ATRIUM The left atrial size is mildly dilated. RIGHT ATRIUM The right atrial size is mildly dilated. ATRIAL SEPTUM No atrial level shunt is demonstrated by color flow Doppler interrogation. AORTA The aortic root and proximal ascending aorta are not well visualized. MITRAL VALVE [id number] mitral valve regurgitation. AORTIC VALVE Trileaflet aortic valve. No aortic valve stenosis or regurgitation. TRICUSPID VALVE No tricuspid regurgitation. PULMONARY VALVE No pulmonary valve regurgitation or stenosis. VESSELS The inferior vena cava was not well visualized. PERICARDIUM No pericardial effusion. Rajiv Delgado MD, FACC, [facility] [place] (Electronically Signed) Final Date:25 October 2017 18:57
[2017-10-25] MEDS: CALCIUM CARBONATE 500 MG CHEWABLE TAB CHEW SCH (21:39)
[2017-10-25] MEDS: MAGNESIUM OXIDE 400 MG TAB PO SCH (21:39)
[2017-10-25] MEDS: LACTOBACILLUS ACIDOPHILUS TAB PO SCH (21:39)
[2017-10-26 04:36] VITALS: BP 127/82; PULSE 101; RESP 18; TEMP 97.7; O2SAT 99
[2017-10-26] MEDS: HEPARIN SODIUM - SQ 10,000 UNITS/ML VIAL SQ SCH (05:40)
[2017-10-26 07:51] VITALS: BP 147/87; PULSE 85; RESP 18; TEMP 98.3; O2SAT 99
[2017-10-26 08:29] LABS: BICARBONATE 22.5 MEQ/L (21.0-32.0); CALCIUM 8.3 MG/DL (8.5-10.1); CREATININE 0.68 MG/DL (0.60-1.30); MAGNESIUM 1.5 MG/DL (1.5-2.5)
[2017-10-26] MEDS: SODIUM CHLORIDE 0.9% FLUSH 10 ML FLUSH IV FLUSH SCH (09:00)
[2017-10-26] MEDS: MAGNESIUM OXIDE 400 MG TAB PO SCH ×2 (09:00→11:09)
[2017-10-26] MEDS ORDERED: PILL SPLITTER OTHER PRN (09:45)
[2017-10-26] MEDS ORDERED: MAGNESIUM OXIDE 400 MG TAB PO ONE (09:45)
[2017-10-26] MEDS ORDERED: METOPROLOL TARTRATE 25 MG TAB PO SCH (09:45)
[2017-10-26] MEDS ORDERED: POTASSIUM CHLORIDE 10 MEQ CONTROLLED RELEASE TAB PO ONE (09:45)
--- NOTE | 2017-10-26 10:30 | HHI.PR ---
Subjective Remarks Follow up on patient with chest pain, N/V, diarrhea. Patient seen and examined. Patient has no complaints of chest pain this morning. He denies any complaints of fever chills. Denies any shortness of breath. He denies any recurrence of nausea or vomiting. States his diarrhea is resolved and his stools are now "98% formed". He is tolerating a regular diet. Objective Vitals Vital Signs Date Time Temp Pulse Resp B/P (MAP) Pulse Ox O2 Delivery O2 Flow Rate FiO2 10/26/17 07:51 98.3 85 18 147/87 (107) 99 10/26/17 04:36 97.7 101 18 127/82 (97) 99 10/25/17 22:34 97.7 99 18 134/89 (104) 98 10/25/17 21:43 99 10/25/17 20:38 98.1 110 18 143/89 (107) 99 10/25/17 16:00 97.8 103 20 130/77 (94) 99 10/25/17 12:00 96.8 113 20 134/88 (103) 99 I/O 10/25/17 10/25/17 10/25/17 10/26/17 10/26/17 10/26/17 07:00 15:00 23:00 07:00 15:00 23:00 Intake Total 240 ml Balance 240 ml Intake Oral 240 ml # Voids 1 2 # Bowel Movements 2 Result Diagram: 10/25/17 0620 10/26/17 0640 Imaging Last Impressions Chest X-Ray 10/24/17 0058 Signed Impressions: Service Date/Time: Tuesday, October 24, 2017 01:10 - CONCLUSION: The lungs are clear. No acute findings. Dennys Rivas MD Objective Remarks GENERAL: This is a well-nourished, well-developed unkempt male patient , in no apparent distress. Awake and alert. Lying in bed watching TV. Appears comfortable. SKIN: Warm and dry. HEAD: Atraumatic. Normocephalic. No temporal or scalp tenderness. EYES: Pupils equal round and reactive. Extraocular motions intact. No scleral icterus. No injection or drainage. ENT: Nose without bleeding or purulent drainage. Airway patent. MMM. NECK: Trachea midline. No lymphadenopathy. Supple, nontender, no meningeal signs. CARDIOVASCULAR: Regular rate and rhythm without murmurs, gallops, or rubs. RESPIRATORY: Nonlabored. Clear to auscultation. Breath sounds equal bilaterally. No wheezes, rales, or rhonchi. GASTROINTESTINAL: Abdomen soft, nondistended, nontender to palpation. MUSCULOSKELETAL: Extremities without clubbing, cyanosis, or edema. No joint tenderness, effusion, or edema noted. No calf tenderness. NEUROLOGICAL: Awake and alert. Cranial nerves II through XII grossly intact. Motor and sensory grossly within normal limits. Nonfocal. Normal speech. PSYCHIATRIC: Calm and pleasant. Cooperative with exam. Procedures None Medications and IVs Current Medications Medications (Trade) Dose Ordered Sig/Tiffanie Route Start Time Stop Time Status Last Admin (Ativan Inj) 1 mg Q2H PRN IV PUSH 10/24/17 01:15 10/24/17 01:47 (NS Flush) 2 ml UNSCH PRN IV FLUSH 10/24/17 06:30 (NS Flush) 2 ml BID IV FLUSH 10/24/17 09:00 10/25/17 21:40 (Zofran Inj) 4 mg Q6H PRN IVP 10/24/17 06:30 (Narcan Inj) 0.4 mg UNSCH PRN IV PUSH 10/24/17 06:30 (Tiny-Colace) 1 tab BID PO 10/24/17 09:00 Future Hold (Milk Of Magnesia Liq) 30 ml Q12H PRN PO 10/24/17 06:30 (Senokot) 17.2 mg Q12H PRN PO 10/24/17 06:30 (Dulcolax Supp) 10 mg DAILY PRN RECTAL 10/24/17 06:30 (Lactulose Liq) 30 ml DAILY PRN PO 10/24/17 06:30 (Romazicon Inj) 0.2 mg Q1M PRN IV PUSH 10/24/17 06:30 (Ativan) 1 mg Q4H PRN PO 10/24/17 06:30 10/24/17 13:29 (Ativan Inj) 1 mg Q4H PRN IV PUSH 10/24/17 06:30 (Ativan) 2 mg Q2H PRN PO 10/24/17 06:30 (Ativan Inj) 2 mg Q2H PRN IV PUSH 10/24/17 06:30 (Ativan Inj) 2 mg Q1H PRN IV PUSH 10/24/17 06:30 (Ativan Inj) 2 mg Q15M PRN IV PUSH 10/24/17 06:30 (Theragran) 1 tab DAILY PO 10/25/17 09:00 10/25/17 09:41 (Folate) 1 mg DAILY PO 10/25/17 09:00 10/25/17 09:41 (Vitamin B1) 100 mg DAILY PO 10/25/17 09:00 10/25/17 09:41 (Tylenol) 650 mg Q4H PRN PO 10/24/17 12:00 (Heparin Inj) 5,000 units Q8H SQ 10/24/17 14:00 10/25/17 21:40 (Habitrol 21 Mg Patch.24 Hr) 1 patch DAILY T-DERMAL 10/25/17 09:00 10/25/17 09:42 Miscellaneous Information 1 DAILY T-DERMAL 10/25/17 09:00 (Pepcid) 20 mg BID PO 10/24/17 21:00 10/25/17 21:39 (Duoneb Neb) 1 ampule Q2HR NEB PRN NEB 10/24/17 16:45 (Lactinex) 1 tab Q12HR PO 10/25/17 21:00 10/25/17 21:39 (Mag-Ox) 400 mg Q12HR PO 10/25/17 21:00 10/25/17 21:39 (Tums Chew) 500 mg Q12HR CHEW 10/25/17 21:00 10/25/17 21:39 (Lopressor) 12.5 mg Q12HR PO 10/26/17 09:45 (Pill Splitter) 1 ea UNSCH PRN OTHER 10/26/17 09:45 A/P Assessment and Plan Chest pain, r/o ACS CP resolved Troponin less than 0.02 x 3 Patient is status post cardiac catheterization 2017 revealing mild nonobstructive coronary artery disease Patient refused cardiac telemetry Echo left ventricular systolic function is low normal with an estimated ejection fraction in the range of 50-55%. Intractable nausea, vomiting and diarrhea, resolved Tolerating regular diet Recurrent history of C. difficile, last tested positive for C. difficile 10/02/17 Hyperchloremic metabolic acidosis, suspect secondary to alcohol ingestion and GI losses History of chronic alcoholism and recurrent pancreatitis. Lipase level WNL Status post EGD/colonoscopy 10/06/17 revealing duodenitis, hiatal hernia, gastritis and diverticulosis. Path positive for tubular adenoma. -continue on regular diet -continue Pepcid 20mg BID -Lactobacillus -patient will need to follow up with GI following discharge as outpatient Leukocytosis, suspect reactive secondary to nausea and vomiting, resolved Chest x-ray shows no acute disease, images reviewed by me Lactic acid 1.6 UA unremarkable -Continue to monitor white count as indicated Chronic alcoholism Ethyl alcohol 297 Transaminitis, suspect secondary to chronic alcoholism No e/o DTs UDS positive for benzos LFTs trending down -discussed alcohol cessation -Avoid hepatotoxic agents -[facility] protocol -Thiamine/multivitamin/folic acid daily -Monitor for signs of withdrawal -seizure precautions COPD with ongoing tobaccoism, not in acute exacerbation -smoking cessation counseling -Duonebs prn -continue to monitor respiratory status -nicotine patch ordered Anemia, hypochromic, microcytic, chronic, stable B12 and folate levels WNL 10/02/17 No evidence of acute bleed -obtain stool for hemoccult testing (neg stool hemoccult 10/02) -Continue to monitor CBC as indicated DVT prophylaxis -Heparin sq Discharge patient to home Condition on discharge: Improved Regular Diet as tolerated Ad Niya activity Strongly advise on alcohol and smoking cessation Rx written: KCL, Magnesium, Lactobacillus, Thiamine, Folate, etsefany CHRISTENSEN Follow-up with primary care physician and knife sharpener as outpatient Discharge Planning Possible discharge later today pending stool studies results and echocardiogram Lori Ricci Oct 26, 2017 10:30
[2017-10-26] MEDS: CALCIUM CARBONATE 500 MG CHEWABLE TAB CHEW SCH (11:00)
[2017-10-26] MEDS: FOLIC ACID 1 MG TAB PO SCH (11:00)
[2017-10-26] MEDS: LACTOBACILLUS ACIDOPHILUS TAB PO SCH (11:00)
[2017-10-26] MEDS: MULTIVITAMIN TAB PO SCH (11:01)
[2017-10-26] MEDS: NICOTINE 21 MG/24 HR PATCH T-DERMAL SCH (11:02)
[2017-10-26] MEDS: REMOVE OLD PATCH T-DERMAL SCH (11:02)
[2017-10-26] MEDS: THIAMINE HCL 100 MG TAB PO SCH (11:09)
[2017-10-26] MEDS: FAMOTIDINE 20 MG TAB PO SCH (11:09)
[2017-10-26] MEDS ORDERED: MAGN400T2 PO (11:31)
[2017-10-26] MEDS ORDERED: POTA10TA15 PO (11:31)
[2017-10-26] MEDS ORDERED: METO25TA3 PO (11:31)
--- NOTE | 2017-10-26 11:33 | HHI.DS ---
Discharge Summary Admission Date Oct 24, 2017 at 07:08 Discharge Date: Oct 26, 2017 Admitting Diagnosis syncope and etoh withdrawal tachycardia (1) intractable emesis (2) Nausea & vomiting ICD Code: R11.2 - Nausea with vomiting, unspecified Status: Resolved (3) Leukocytosis ICD Code: D72.829 - Elevated white blood cell count, unspecified (4) Hypokalemia ICD Code: E87.6 - Hypokalemia (5) Hypoglycemia ICD Code: E16.2 - Hypoglycemia, unspecified (6) Transaminitis ICD Code: R74.0 - Nonspecific elevation of levels of transaminase and lactic acid dehydrogenase [LDH] (7) Hypertension ICD Code: I10 - Hypertension Status: Acute (8) Dizziness ICD Code: R42 - Dizziness and giddiness (9) Alcoholism ICD Code: F10.20 - Alcohol dependence, uncomplicated (10) Alcohol withdrawal ICD Code: F10.239 - Alcohol dependence with withdrawal, unspecified Status: Acute (11) Impaired activities of daily living ICD Code: R53.81 - Other malaise (12) Balance problem ICD Code: R26.89 - Other abnormalities of gait and mobility (13) Gait instability ICD Code: R26.81 - Unsteadiness on feet (14) Physical deconditioning ICD Code: R53.81 - Other malaise (15) Anemia ICD Code: D64.9 - Anemia, unspecified Procedures None Brief History - From Admission This is a 57yo male with a PMHX of alcoholism, HTN, COPD and recurrent pancreatitis who presents to [facility] ED with complaints of chest pain, nausea, vomiting, diarrhea and dizziness. Patient reports left sided dull chest pressure that occurs 4 to 5x per day typically when getting up from supine or seated position with associated dizziness and diaphoresis and occasionally associated with shortness of breath for the past several months. Patient is not sure whether or not he passes out during these episodes. He denies any fever or chills. Patient states he has had issues with ongoing nausea and vomiting as well as diarrhea for the past several days. He reports mild abdominal pain. He endorses generalized weakness with recurrent falls at home. He admits to alcohol consumption most days of the week consisting either of several beers per day or multiple shots up to 4 however he states he has not had alcoholic beverage since Friday. He denies any history of alcohol seizures in the past. He reports strong family history of heart disease in both his grandfather and father who from massive [place], his father at the age of 60. Patient continues to smoke three quarters a pack of cigarettes per day. He denies any illicit drug use since the . In the ED, patient was found to be tachycardic with a heart rate of 119 and had leukocytosis with elevated white count of 15.3. He is afebrile. Lactic acid was not obtained. Chest x- ray was unremarkable. Troponin was less than 0.02. While in the room, patient vomited twice. He reports his last loose stool was earlier this morning. Patient had a cardiac catheterization in 2017 which showed mild nonobstructive coronary disease. CBC/BMP: 10/25/17 0620 10/26/17 0640 Significant Findings Laboratory Tests Test 10/24/17 01:05 10/24/17 12:26 10/24/17 13:40 10/25/17 00:29 White Blood Count 15.3 TH/MM3 (4.0-11.0) Red Blood Count 4.13 MIL/MM3 (4.50-5.90) Hemoglobin 9.6 GM/DL (13.0-17.0) Hematocrit 31.6 % (39.0-51.0) Mean Corpuscular Volume 76.5 FL (80.0-100.0) Mean Corpuscular Hemoglobin 23.4 PG (27.0-34.0) Mean Corpuscular Hemoglobin Concent 30.6 % (32.0-36.0) Red Cell Distribution Width 25.0 % (11.6-17.2) Neutrophils (%) (Auto) 88.9 % (16.0-70.0) Lymphocytes (%) (Auto) 4.7 % (9.0-44.0) Neutrophils # (Auto) 13.5 TH/MM3 (1.8-7.7) Lymphocytes # (Auto) 0.7 TH/MM3 (1.0-4.8) Ovalocytes 1+ (NORMAL) Blood Urea Nitrogen 4 MG/DL (7-18) Albumin 2.9 GM/DL (3.4-5.0) Calcium Level 7.9 MG/DL (8.5-10.1) Alkaline Phosphatase 168 U/L (45-117) Aspartate Amino Transf (AST/SGOT) 86 U/L (15-37) Total Bilirubin 1.2 MG/DL (0.2-1.0) Sodium Level 147 MEQ/L (136-145) Chloride Level 109 MEQ/L (98-107) Anion Gap 16 MEQ/L (5-15) Estimat Glomerular Filtration Rate 69 ML/MIN (>89) Troponin I LESS THAN 0.02 NG/ML LESS THAN 0.02 NG/ML LESS THAN 0.02 NG/ML Ethyl Alcohol Level 12 MG/DL (0-5) Urine Benzodiazepines Screen POS (NEG) Test 10/25/17 06:20 10/26/17 06:40 Red Blood Count 3.75 MIL/MM3 (4.50-5.90) Hemoglobin 9.3 GM/DL (13.0-17.0) Hematocrit 28.2 % (39.0-51.0) Mean Corpuscular Volume 75.3 FL (80.0-100.0) Mean Corpuscular Hemoglobin 24.7 PG (27.0-34.0) Red Cell Distribution Width 24.2 % (11.6-17.2) Neutrophils (%) (Auto) 72.4 % (16.0-70.0) Monocytes (%) (Auto) 8.1 % (0.0-8.0) Blood Urea Nitrogen 2 MG/DL (7-18) 2 MG/DL (7-18) Random Glucose 69 MG/DL (74-106) Albumin 2.4 GM/DL (3.4-5.0) Calcium Level 7.7 MG/DL (8.5-10.1) 8.3 MG/DL (8.5-10.1) Alkaline Phosphatase 137 U/L (45-117) Aspartate Amino Transf (AST/SGOT) 57 U/L (15-37) Potassium Level 3.0 MEQ/L (3.5-5.1) 3.3 MEQ/L (3.5-5.1) Chloride Level 108 MEQ/L (98-107) 108 MEQ/L (98-107) Protein Corrected Calcium 7.7 MG/DL (8.5-10.1) Magnesium Level 1.4 MG/DL (1.5-2.5) Imaging Last Impressions Chest X-Ray 10/24/17 0058 Signed Impressions: Service Date/Time: Tuesday, October 24, 2017 01:10 - CONCLUSION: The lungs are clear. No acute findings. Dennys Rivas MD PE at Discharge GENERAL: This is a well-nourished, well-developed unkempt male patient , in no apparent distress. Awake and alert. Lying in bed watching TV. Appears comfortable. SKIN: Warm and dry. HEAD: Atraumatic. Normocephalic. No temporal or scalp tenderness. EYES: Pupils equal round and reactive. Extraocular motions intact. No scleral icterus. No injection or drainage. ENT: Nose without bleeding or purulent drainage. Airway patent. MMM. NECK: Trachea midline. No lymphadenopathy. Supple, nontender, no meningeal signs. CARDIOVASCULAR: Regular rate and rhythm without murmurs, gallops, or rubs. RESPIRATORY: Nonlabored. Clear to auscultation. Breath sounds equal bilaterally. No wheezes, rales, or rhonchi. GASTROINTESTINAL: Abdomen soft, nondistended, nontender to palpation. MUSCULOSKELETAL: Extremities without clubbing, cyanosis, or edema. No joint tenderness, effusion, or edema noted. No calf tenderness. NEUROLOGICAL: Awake and alert. Cranial nerves II through XII grossly intact. Motor and sensory grossly within normal limits. Nonfocal. Normal speech. PSYCHIATRIC: Calm and pleasant. Cooperative with exam. Pt update on day of discharge Follow up on patient with chest pain, N/V, diarrhea. Patient seen and examined. Patient has no complaints of chest pain this morning. He denies any complaints of fever chills. Denies any shortness of breath. He denies any recurrence of nausea or vomiting. States his diarrhea is resolved and his stools are now "98% formed". He is tolerating a regular diet. Hospital Course Chest pain, r/o ACS CP resolved Troponin less than 0.02 x 3 Patient is status post cardiac catheterization 2016 revealing mild nonobstructive coronary artery disease Patient refused cardiac telemetry Echo left ventricular systolic function is low normal with an estimated ejection fraction in the range of 50-55%. Intractable nausea, vomiting and diarrhea, resolved Tolerating regular diet Recurrent history of C. difficile, last tested positive for C. difficile 10/02/17 Hyperchloremic metabolic acidosis, suspect secondary to alcohol ingestion and GI losses History of chronic alcoholism and recurrent pancreatitis. Lipase level WNL Status post EGD/colonoscopy 10/06/17 revealing duodenitis, hiatal hernia, gastritis and diverticulosis. Path positive for tubular adenoma. -continue on regular diet -continue Pepcid 20mg BID -Lactobacillus -patient will need to follow up with GI following discharge as outpatient Leukocytosis, suspect reactive secondary to nausea and vomiting, resolved Chest x-ray shows no acute disease, images reviewed by me Lactic acid 1.6 UA unremarkable -Continue to monitor white count as indicated Chronic alcoholism Ethyl alcohol 297 Transaminitis, suspect secondary to chronic alcoholism No e/o DTs UDS positive for benzos LFTs trending down -discussed alcohol cessation -Avoid hepatotoxic agents -[facility] protocol -Thiamine/multivitamin/folic acid daily -Monitor for signs of withdrawal -seizure precautions COPD with ongoing tobaccoism, not in acute exacerbation -smoking cessation counseling -Duonebs prn -continue to monitor respiratory status -nicotine patch ordered Anemia, hypochromic, microcytic, chronic, stable B12 and folate levels WNL 10/02/17 No evidence of acute bleed -obtain stool for hemoccult testing (neg stool hemoccult 10/02) -Continue to monitor CBC as indicated DVT prophylaxis -Heparin sq Pt Condition on Discharge: Stable Discharge Disposition: Discharge Home Discharge Time: > 30 minutes Discharge Instructions DIET: Follow Instructions for: As Tolerated, No Restrictions Activities you can perform: See Additionl Instruction Other Activity Instructions: per PT recommendations Follow up Referrals: Gastroenterology - 1 Week with Rena Redmond MD PCP Follow-up - 1 Week with [facility] New Orders: BASIC METABOLIC PROF - 3-5 Days New Medications: Magnesium Oxide (Magnesium Oxide) 400 Mg Tab 400 MG PO DAILY for Nutritional Supplement, #6 TAB 0 Refills Walker with Front Wheels (Walker with Front Wheels) 1 Mis Mis EA .XX DIRECTED, #1 0 Refills Famotidine (Famotidine) 20 Mg Tab 20 MG PO BID for GERD, #60 TAB Lactobacillus Acidophilus (Acidophilus/l-Sporogenes) 35 Million Cell-25 Million Cell Tab 1 TAB PO Q12HR for PROBIOTIC, #60 TAB Metoprolol Tartrate (Metoprolol Tartrate) 25 Mg Tab 12.5 MG PO Q12HR for Blood Pressure Management, #30 TAB DO NOT TAKE WITH ALCOHOL Multivitamin with Folic Acid (Thera Tablet) 400 Mcg Tablet 1 TAB PO DAILY for Nutritional Supplement, #30 TAB [Calcium Carbonate Chew] () 500 MG CHEW 500 MG CHEW Q12HR for Low Calcium, #10 Changed Medications: Potassium Chloride Microencaps (Potassium Chloride Microencaps) 10 Meq Tab 10 MEQ PO Q12HR for Electrolyte Replacement, #6 TAB 0 Refills (Changed from: Potassium Chloride Microencaps 20 Meq Tab 20 Meq PO BID Hypokalemia #10 TAB) Continued Medications: Folic Acid (Folic Acid) 1 Mg Tablet 1 MG PO DAILY for Vitamin, #30 TAB (This prescription has been renewed) Thiamine HCl (Gnp Vitamin B-1) 100 Mg Tab 100 MG PO DAILY for Vitamin, #30 TAB (This prescription has been renewed) Discontinued Medications: Metronidazole (Metronidazole) 500 Mg Tab 500 MG PO TID for Infection, #30 TAB 0 Refills Miscellaneous (Office Medication) Misc 5 MG PO DIRECTED for Alcohol Detox, #15 CAP chlordiazepoxide 5 mg cap 1 cap po TID for 2 days, then 1 cap BID for 2 days, then 1 cap daily afterwards Pantoprazole (Pantoprazole) 40 Mg Tab 40 MG PO DAILY for Reflux, #30 TAB 0 Refills Lori Ricci Oct 26, 2017 11:33
[2017-10-26] MEDS ORDERED: Calcium Carbonate Chew CHEW (11:41)
[2017-10-26] MEDS ORDERED: FAMO20TA2 PO (11:41)
[2017-10-26] MEDS ORDERED: LACT PO (11:41)
[2017-10-26] MEDS ORDERED: THERTAB15 PO (11:41)
[2017-10-26] MEDS ORDERED: THIA100 PO (11:41)
[2017-10-26] MEDS ORDERED: FOLI1TAB6 PO (11:41)
== END 2017-10-26 12:50 | disposition home or self-care (01) ==
LOC: NEPE 00:12 → NEDA 07:08 → NEPGCP 09:01
PROVIDERS: ADMIT Hospitalist; ATTEND Hospitalist
DX: R07.89 Other chest pain (principal); R55 Syncope and collapse; F10.239 Alcohol dependence with withdrawal, unspecified; R42 Dizziness and giddiness; R26.81 Unsteadiness on feet; R19.7 Diarrhea, unspecified; R00.0 Tachycardia, unspecified; R11.2 Nausea with vomiting, unspecified; D72.829 Elevated white blood cell count, unspecified; E87.6 Hypokalemia; E16.2 Hypoglycemia, unspecified; R74.0 Nonspecific elevation of levels of transaminase and lactic acid dehydrogenase [LDH]; I25.10 Atherosclerotic heart disease of native coronary artery without angina pectoris; I10 Essential (primary) hypertension; D50.9 Iron deficiency anemia, unspecified; J44.9 Chronic obstructive pulmonary disease, unspecified; K21.9 Gastro-esophageal reflux disease without esophagitis; R29.6 Repeated falls; F17.210 Nicotine dependence, cigarettes, uncomplicated; Z82.49 Family history of ischemic heart disease and other diseases of the circulatory system
CPT/HCPCS: 71046; 80048; 80053; 80307; 81001; 82550; 82552; 83605; 83690; 83735; 84155; 84484; 85025; 93005; 93306; 96361; 96365; 96372; 96375; 97162; 99285; C9113; G0378; G8987; G8988; J1644; J2060; J3411; J7030